=== PATIENT | male | born 1935 | race Caucasian/White ===

== ENCOUNTER 2017-01-12 08:37 | Inpatient (IN) | payer MEDICARE, BC ==
[~2017-01-12] VITALS: Ht 177.8 cm; Wt 96.7 kg
[2017-01-12] VITALS (16 sets, daily range): BP systolic 83–129; BP diastolic 50–92
[~2017-01-12 08:37] MED LIST: AMIO200T PO; AMLO5TAB4 PO; ATOR40TA59 PO; DIGO125T16 PO; DILT180C2 PO; ESOM40CA PO; EZET1TAB30 PO; FURO40TA4 PO; IPRA4AER IH; LISI10TA2 PO; LISI1TAB3 PO; METO100T2 PO; METO100T5 PO; OLME20TA19 PO; OMEG1CAP38 PO; OMEG500C PO; OMEP40CA5 PO; PIOG15TA42 PO; PIOG15TA69 PO; SODI30SP NS; SPIR1TAB PO; TAMS0.4C97 PO; TIOT18CA IH
[2017-01-12] MEDS ORDERED: LORazepam 2 MG/ML VIAL IV PRN ×2 (09:30)
[2017-01-12] MEDS ORDERED: ONDANSETRON PF 4 MG/2 ML VIAL. IV PRN (09:30)
[2017-01-12] MEDS ORDERED: LORazepam 1 MG TABLET PO PRN ×2 (09:30)
[2017-01-12 09:36] LABS: BASO % 0 % (0-3); EOS % 0 % (0-3); HEMATOCRIT 49.9 % (39.0-53.0); HEMOGLOBIN 16.7 g/dL (13.0-17.5); LYMPH # 0.8 x10^3/uL (1.0-4.8); LYMPH % 9 % (24-48); MEAN CORPUSCULAR HEMOGLOBIN 33 pg (25-35); MEAN CORPUSCULAR HGB CONC 34 g/dL (31-37); MEAN CORPUSCULAR VOLUME 100 fL (79-100); MONO # 1.2 x10^3/uL (0.0-1.1); MONO % 14 % (0-9); NEUT # 6.6 x10^3uL (1.8-7.7); NEUT % 76 % (31-73); PLATELET COUNT 191 x10^3/uL (140-400); RED BLOOD COUNT 5.01 x10^6/uL (4.30-5.70); RED CELL DISTRIBUTION WIDTH 14.1 % (11.5-14.5); WHITE BLOOD COUNT 8.6 x10^3/uL (4.0-11.0)
[2017-01-12] MEDS ORDERED: IPRATRPIUM/ALBUTEROL 0.5/2.5MG 3 ML NEBU. ONE (09:43)
[2017-01-12] MEDS: IPRATRPIUM/ALBUTEROL 0.5/2.5MG 3 ML NEBU. NEB SCH ×3 (09:50→20:54)
[2017-01-12 09:55] LABS: ALBUMIN 3.1 g/dL (3.4-5.0); ALBUMIN/GLOBULIN RATIO 0.9 (1.0-1.7); CALCIUM 9.1 mg/dL (8.5-10.1); CREATININE 1.3 mg/dL (0.7-1.3); POTASSIUM 3.8 mmol/L (3.5-5.1); TOTAL PROTEIN 6.5 g/dL (6.4-8.2)
[2017-01-12 10:07] LABS: DIRECT BILIRUBIN 0.9 mg/dL (0.0-0.2)
[2017-01-12 10:10] LABS: BGAS PH 7.41 (7.35-7.46)
[2017-01-12] MEDS: NICOTINE 21MG PATCH. TD SCH (10:26)
--- NOTE | 2017-01-12 10:26 | RAD ---
Exam performed: 2 views chest. History: Shortness of breath and cough. Date of service: 01/12/17. Comparison: 09/03/14. PA and lateral views chest findings: Moderate stable cardiomegaly. Central vascular congestion is noted. Coarse interstitial markings are seen in both lungs some of which is likely a chronic basis. There is trace bilateral pleural effusions. Emphysematous lungs. Impression: Cardiomegaly with central vascular congestion and probable low-grade interstitial edema.
[2017-01-12] MEDS ORDERED: dilTIAZem 25 MG/5 ML VIAL IVP ONE (10:30)
--- NOTE | 2017-01-12 11:06 | PDOC2 ---
JUANA BRAVO [employer] 01/12/17 1106: CONSULT Date of Admission DATE: 01/12/17 TIME: 10:57 Reason for Consult: atrial fibrillation with RVR History of Present Illness Mr Masters is an 81 year old male with history of HTN, HLD, PE, CVA, CHF, who presents with complaints of dyspnea increasing over the last couple weeks. He says he has been unable to sleep due to dyspnea and this is what prompted him to go to his PCP office this am. He was noted to have atrial fibrillation with RVR so sent to hospital for direct admission. He is a poor historian and unable to give clear cardiac history. He reports that after the of his son and then he " stopped caring, stopped going to doctor and started drinking and smoking. He reports chest discomfort mid sternal with the dyspnea this am. He suggests that he may have been having chest pain off and on but is unable or unwilling to give details. He reports increased swelling over the last couple weeks as well. Most of his history is obtained from the chart. Past Medical History Significant for hypertension, hyperlipidemia, stroke, diabetes mellitus, BPH, reflux disease, DVT filter in place, congestive heart failure, COPD, and legally blind. Family History Family history is significant for hypertension and strokes. Social History smoking off and on for many years ago up to 1ppd. He has alcohol use of about a 6 pack per day. He says after the of his son and he stopped caring , started drinking and smoking and stopped following up. Current Medications Current Medications Albuterol/ Ipratropium (Duoneb) 3 ml RTQID NEB ; Start 01/12/17 at 12:00 Lorazepam (Ativan) 4 mg PRN Q1HR PRN PO For CIWA 8-14; Start 01/12/17 at 09:30 Lorazepam (Ativan) 8 mg PRN Q1HR PRN PO For CIWA 15 or greater; Start 01/12/17 at 09:30 Lorazepam (Ativan) 2 mg PRN Q1HR PRN IV For CIWA 8-14; Start 01/12/17 at 09:30 Lorazepam (Ativan) 4 mg PRN Q1HR PRN IV For CIWA 15 or greater; Start 01/12/17 at 09:30 Nicotine (Nicoderm Cq 21mg) 1 patch DAILY TD Last administered on 01/12/17t 10: 26; Start 01/12/17 at 09:45 Ondansetron HCl (Zofran) 4 mg PRN Q6HRS PRN IV NAUSEA/VOMITING; Start 01/12/17 at 09:30 Albuterol/ Ipratropium (Duoneb) 3 ml STK-MED ONCE .ROUTE ; Start 01/12/17 at 09: 43; Stop 01/12/17 at 09:44; Status DC Diltiazem HCl (Cardizem) 10 mg 1X ONCE IVP ; Start 01/12/17 at 10:30; Stop at 10:30; Status DC Diltiazem HCl 100 mg/Dextrose 100 ml @ 5 mls/hr CONT PRN IV SEE I/O RECORD Last administered on 01/12/17 10:28; Start 01/12/17 at 10:15 Active Scripts Active Toprol Xl (Metoprolol Succinate) 100 Mg Tab.er.24h 100 Mg PO BID Lanoxin (Digoxin) 125 Mcg Tablet 125 Mcg PO DAILY Reported Saline Nasal Stanton (Sodium Chloride) 30 Ml Stanton 30 Ml NS PRN Q1MIN PRN LAST DOSE; TODAY NEXT DOSE; TODAY WHEN NEEDED Omeprazole 40 Mg Capsule.dr 40 Mg PO DAILY LAST DOSE; TODAY BEFORE BREAKFAST NEXT DOSE; TOMORROW BEFORE BREAKFAST Furosemide 40 Mg Tablet 40 Mg PO DAILY LAST DOSE; TODAY AM NEXT DOSE; TOMORROW AM Pioglitazone Hcl 15 Mg Tablet 15 Mg PO DAILY LAST DOSE; TODAY WITH BREAKFAST NEXT DOSE; TOMORROW WITH BREAKFAST Toprol Xl (Metoprolol Succinate) 100 Mg Tab.er.24h 100 Mg PO BID LAST DOSE; TODAY AM NEXT DOSE; TODAY PM Atorvastatin Calcium 40 Mg Tablet 40 Mg PO QHS LAST DOSE; LAST NIGHT AT BEDTIME NEXT DOSE; TONIGHT AT BEDTIME Combivent Respimat Inhal Stanton (Ipratropium/Albuterol Sulfate) 4 Gm Aer.w.adap 4 Gm IH PRN QID PRN LAST DOSE; NEXT DOSE; TODAY IF NEEDED Benicar (Olmesartan Medoxomil) 20 Mg Tablet 20 Mg PO DAILY LAST DOSE; TODAY AM NEXT DOSE; TOMORROW AM Flomax (Tamsulosin Hcl) 0.4 Mg Cap.er.24h 0.4 Mg PO DAILY LAST DOSE; TODAY AM NEXT DOSE; TOMORROW AM Allergies: Coded Allergies: Penicillins (Verified Allergy, Intermediate, 09/04/14) iodine (Verified Allergy, Intermediate, 09/04/14) shellfish derived (Verified Allergy, Intermediate, 09/04/14) shrimp Review of System as per HPI General: Alert, Oriented X3, mild distress HEENT: Other (+HJR) Lungs: Other (decreased with bibasilar crackles) Heart: Other (irregular rate and rhythm without gallops) Abdomen: Normal bowel sounds, Soft Extremities: No cyanosis, Other (3+ bilateral lower extremity edema) Neuro: Normal speech Psych/Mental Status: Mental status NL, Other (depressed) VITALS Vital Signs Date Time Temp Pulse Resp B/P (MAP) Pulse Ox O2 Delivery O2 Flow Rate FiO2 01/12/17 10:50 97.5 97 24 118/91 (100) 94 Nasal Cannula 2.0 Labs Laboratory Tests Test 01/12/17 09:27 01/12/17 09:55 White Blood Count 8.6 x10^3/uL (4.0-11.0) Red Blood Count 5.01 x10^6/uL (4.30-5.70) Hemoglobin 16.7 g/dL (13.0-17.5) Hematocrit 49.9 % (39.0-53.0) Mean Corpuscular Volume 100 fL (79-100) Mean Corpuscular Hemoglobin 33 pg (25-35) Mean Corpuscular Hemoglobin Concent 34 g/dL (31-37) Red Cell Distribution Width 14.1 % (11.5-14.5) Platelet Count 191 x10^3/uL (140-400) Neutrophils (%) (Auto) 76 % (31-73) Lymphocytes (%) (Auto) 9 % (24-48) Monocytes (%) (Auto) 14 % (0-9) Eosinophils (%) (Auto) 0 % (0-3) Basophils (%) (Auto) 0 % (0-3) Neutrophils # (Auto) 6.6 x10^3uL (1.8-7.7) Lymphocytes # (Auto) 0.8 x10^3/uL (1.0-4.8) Monocytes # (Auto) 1.2 x10^3/uL (0.0-1.1) Eosinophils # (Auto) 0.0 x10^3/uL (0.0-0.7) Basophils # (Auto) 0.0 x10^3/uL (0.0-0.2) D-Dimer (Ami) 0.76 mg/L (0.00-0.50) Sodium Level 133 mmol/L (136-145) Potassium Level 3.8 mmol/L (3.5-5.1) Chloride Level 98 mmol/L (98-107) Carbon Dioxide Level 30 mmol/L (21-32) Anion Gap 5 (6-14) Blood Urea Nitrogen 19 mg/dL (8-26) Creatinine 1.3 mg/dL (0.7-1.3) Estimated GFR (Cockcroft-Gault) 53.0 BUN/Creatinine Ratio 15 (6-20) Glucose Level 129 mg/dL (70-99) Calcium Level 9.1 mg/dL (8.5-10.1) Total Bilirubin 2.0 mg/dL (0.2-1.0) Direct Bilirubin 0.9 mg/dL (0.0-0.2) Aspartate Amino Transf (AST/SGOT) 38 U/L (15-37) Alanine Aminotransferase (ALT/SGPT) 18 U/L (16-63) Alkaline Phosphatase 131 U/L (46-116) Creatine Kinase 82 U/L (39-308) Troponin I Quantitative 0.055 ng/mL (0-0.055) JJ-[id number]-Type Natriuretic Peptide 92585 pg/mL (0-449) Total Protein 6.5 g/dL (6.4-8.2) Albumin 3.1 g/dL (3.4-5.0) Albumin/Globulin Ratio 0.9 (1.0-1.7) Blood Gas pH 7.41 (7.35-7.46) Blood Gas PCO2 36 mmHg (35-46) Blood Gas PO2 98 mmHg (71-100) Blood Gas HCO3 23 mmol/L (21-28) Arterial Bld O2 Saturation (Calc) 98 % (92-99) FiO2 28 % Images atrial fibrillation with RVR, RBBB Assessment/Plan atrial fibrillation with RVR acute on chronic chf, likely atrial fibrillation - check echo for LV function Chest pain, no acute ischemic changes on EKG. 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 Check echo. IV lasix. Obtain list of home medications and resume as appropriate. . Problems: JOSE DE JESUS OSPINA MD 01/13/17 0945: CONSULT Allergies: Coded Allergies: Penicillins (Verified Allergy, Intermediate, 09/04/14) iodine (Verified Allergy, Intermediate, 09/04/14) shellfish derived (Verified Allergy, Intermediate, 09/04/14) shrimp Assessment/Plan Patient seen and examined 01/12/17. Agree with HONEY PRODUCER's assessment and plan. Atrial fibrillation rate better controlled with intravenous Cardizem infusion and digoxin. 2-D echo showed LVEF 25-30%, diminished compared to echocardiogram from 2015. Atrial fibrillation most probably permanent. He was previously on amiodarone that was taken off either secondary to pulmonary nature of atrial fibrillation or due to his chronic alcohol abuse. Continue diuresis for acute on chronic systolic heart failure. Cardiac catheterization 10 years ago apparently did not show any significant coronary artery disease. Plan for outpatient Lexiscan nuclear stress test to rule out ischemia as a cause of his diminished left ventricle systolic function. Thank you for your consultation. Problems: JUANA BRAVO APRN Jan 12, 2017 11:06 JOSE DE JESUS OSPINA MD Jan 13, 2017 09:45
[2017-01-12] MEDS ORDERED: APIX5TAB3 PO (11:12)
[2017-01-12] MEDS: HYDROcodone/CHLORPHEN POLIS 5 ML SUS.ER.12H PO PRN (12:05)
[2017-01-12] MEDS ORDERED: DIGOXIN IV 500 MCG/2 ML AMPUL. IV ONE (12:30)
[2017-01-12] MEDS: FUROSEMIDE 40 MG/4 ML VIAL IVP SCH ×2 (12:32→17:00)
[2017-01-12] MEDS: POTASSIUM CHLORIDE 20 MEQ TABLET.ER. PO SCH ×2 (12:33→19:57)
[2017-01-12] MEDS ORDERED: NON FORMULARY ITEM (Ipratropium/Albuterol Sulfate (Combivent Respimat Inhal) 4 GM) IH PRN (13:30)
--- NOTE | 2017-01-12 14:30 | CARD ---
APPROVED REPORT EXAM: Two-dimensional and M-mode echocardiogram with Doppler and color Doppler. Other Information Quality : Average Rhythm : Atrial Fibrillation RVR INDICATION Atrial Fibrillation 2D DIMENSIONS RVDd2.8 (2.9-3.5cm)Left Atrium(2D)4.8 (1.6-4.0cm) IVSd1.2 (0.7-1.1cm)Aortic Root(2D)2.7 (2.0-3.7cm) LVDd6.2 (3.9-5.9cm)LVOT Diameter2.2 (1.8-2.4cm) PWd1.2 (0.7-1.1cm)LVDs5.3 (2.5-4.0cm) FS (%) 14.4 %SV59.2 ml LVEF(%)30.0 (>50%) Aortic Valve AoV Peak Bryon.243.8cm/sAoV VTI36.9cm AO Peak GR.23.8mmHgLVOT Peak Bryon.87.1cm/s LVOT VTI 12.99cmAO Mean GR.14mmHg ARY (VMAX)1.01yr9RKA (VTI)1.31cm2 Mitral Valve MV RAO67xsSJE (PHT)3.57cm2 Tricuspid Valve TR P. [id number]/sRAP [id number] TR Peak Gr.[id number] LEFT VENTRICLE There is borderline concentric left ventricular hypertrophy. Left ventricle systolic function is mode rate to severely impaired. The Ejection Fraction is 25-30%. Septal motion consistent with conduction abnormality. Unable to assess diastolic function. RIGHT VENTRICLE The right ventricle appears dilated inl size. Cannot assess right ventricular systolic function. ATRIA The left atrium is moderately dilated. The right atrium appears moderately dilated. The interatrial s eptum is intact with no evidence for an atrial septal defect or patent foramen ovale as noted on 2-D or Doppler imaging. AORTIC VALVE The aortic valve is moderately calcified. Doppler and Color Flow revealed no significant aortic regur gitation. Calculated aortic valve area is 1.3 cm2 with maximum pressure gradient of 24 mmHg and mean pressure gradient of 14 mmHg. Doppler and color-flow analysis revealed mild aortic stenosis. MITRAL VALVE Mitral annular calcification is mild. There is no mitral valve stenosis. Doppler and Color Flow revea led moderate mitral regurgitation. TRICUSPID VALVE The tricuspid valve is normal in structure and function. Doppler and Color Flow revealed mild to mode rate tricuspid regurgitation. The PA pressure was estimated at 36 mmHg. There is no tricuspid valve s tenosis. PULMONIC VALVE The pulmonic valve is not well visualized. Doppler and Color Flow revealed no pulmonic valvular regur gitation. There is no pulmonic valvular stenosis. GREAT VESSELS The aortic root is normal in size. Pulmonary veins not recorded. The IVC is normal in size and collap ses >50% with inspiration. PERICARDIAL EFFUSION There is no evidence of significant pericardial effusion. Critical Notification Date: 01/12/2017 Time: 13:44 Other Discipline : Nancy Arredondo APRN Critical Value: Yes <Conclusion> Left ventricle systolic function is moderate to severely impaired. The Ejection Fraction is 25-30%. Septal motion consistent with conduction abnormality. The left atrium is moderately dilated. Mild aortic stenosis. Moderate mitral regurgitation. Mild to moderate tricuspid regurgitation. The PA pressure was estimated at 36 mmHg. There is no evidence of significant pericardial effusion.
[2017-01-12] MEDS ORDERED: fentaNYL PF 100 MCG/2 ML VIAL IV PRN ×2 (15:15)
[2017-01-12] MEDS ORDERED: chlordiazePOXIDE HCL 25 MG CAPSULE PO PRN (15:15)
[2017-01-12 15:49] LABS: BARBITURATES NEG (NEG); BENZODIAZEPINES NEG (NEG); CANNABINOIDS NEG (NEG); COCAINE NEG (NEG); METHADONE NEG (NEG); OPIATES POS (NEG); PHENCYCLIDINE NEG (NEG)
[2017-01-12 15:55] LABS: AMPHETAMINE/METHAMPHETAMINE NEG (NEG)
[2017-01-12 16:23] LABS: BACTERIA,URINE FEW /HPF (0-FEW); BILIRUBIN,URINE NEG (NEG); CLARITY,URINE CLEAR; COLOR,URINE STRAW; GLUCOSE,URINE NEG (NEG); NITRITE,URINE NEG (NEG); SQUAMOUS EPITHELIAL CELL,UR OCC /LPF; UROBILINOGEN,URINE 0.2 mg/dL (0.2 mg/dL)
[2017-01-12] MEDS: chlordiazePOXIDE HCL 25 MG CAPSULE PO PRN (17:01)
[2017-01-12] MEDS: APIXABAN 5 MG TABLET. PO SCH (19:57)
[2017-01-12] MEDS: ATORVASTATIN CALCIUM 20 MG TABLET PO SCH (19:57)
[2017-01-12] MEDS ORDERED: METOPROLOL SUCCINATE 100 MG PO SCH ×2 (21:00)
[2017-01-13] VITALS (22 sets, daily range): BP systolic 75–115; BP diastolic 50–92
[2017-01-13] MEDS: HYDROcodone/CHLORPHEN POLIS 5 ML SUS.ER.12H PO PRN (01:22)
[2017-01-13] MEDS: chlordiazePOXIDE HCL 25 MG CAPSULE PO PRN ×2 (02:14→08:16)
[2017-01-13] MEDS: IPRATRPIUM/ALBUTEROL 0.5/2.5MG 3 ML NEBU. NEB PRN (02:49)
[2017-01-13] MEDS: IPRATRPIUM/ALBUTEROL 0.5/2.5MG 3 ML NEBU. NEB SCH ×4 (05:15→21:46)
[2017-01-13 06:36] LABS: BASO % 0 % (0-3); CALCIUM 8.9 mg/dL (8.5-10.1); CREATININE 1.2 mg/dL (0.7-1.3); EOS % 0 % (0-3); GFR 58.1; HEMATOCRIT 46.3 % (39.0-53.0); HEMOGLOBIN 15.4 g/dL (13.0-17.5); LYMPH % 7 % (24-48); MEAN CORPUSCULAR HEMOGLOBIN 33 pg (25-35); MEAN CORPUSCULAR HGB CONC 33 g/dL (31-37); MEAN CORPUSCULAR VOLUME 98 fL (79-100); MONO # 2.1 x10^3/uL (0.0-1.1); MONO % 14 % (0-9); NEUT % 80 % (31-73); PLATELET COUNT 181 x10^3/uL (140-400); POTASSIUM 3.7 mmol/L (3.5-5.1); RED BLOOD COUNT 4.71 x10^6/uL (4.30-5.70); RED CELL DISTRIBUTION WIDTH 13.9 % (11.5-14.5); WHITE BLOOD COUNT 15.1 x10^3/uL (4.0-11.0)
[2017-01-13 07:53] LABS: % BANDS 2 % (0-9); % LYMPHS 6 % (24-48); % MONOS 11 % (0-10); % SEGS 81 % (35-66)
[2017-01-13 07:54] LABS: PLT ESTIMATE ADEQUATE (ADEQUATE)
[2017-01-13] MEDS: NICOTINE 21MG PATCH. TD SCH (08:16)
[2017-01-13] MEDS: FUROSEMIDE 40 MG/4 ML VIAL IVP SCH ×2 (08:16→13:18)
[2017-01-13] MEDS: POTASSIUM CHLORIDE 20 MEQ TABLET.ER. PO SCH ×2 (08:17→19:47)
[2017-01-13] MEDS: TAMSULOSIN 0.4 MG CAP.ER.24H. PO SCH (08:17)
[2017-01-13] MEDS: PANTOPRAZOLE 40 MG TABLET. PO SCH (08:18)
[2017-01-13] MEDS: APIXABAN 5 MG TABLET. PO SCH ×2 (08:18→19:46)
[2017-01-13] MEDS: CITALOPRAM 10 MG TABLET. PO SCH (09:00)
[2017-01-13] MEDS: PIOGLITAZONE 15 MG TABLET. PO SCH (09:00)
[2017-01-13] MEDS ORDERED: LOSARTAN 50 MG TABLET. PO SCH (09:00)
[2017-01-13] MEDS ORDERED: FUROSEMIDE 40 MG/4 ML VIAL IVP SCH (09:00)
[2017-01-13] MEDS: DIGOXIN 125 MCG TABLET PO SCH (09:00)
--- NOTE | 2017-01-13 09:38 | PDOC ---
JUANA BRAVO [employer] FOR[employer] 01/13/17 0937: PROGRESS NOTES Assessment atrial fibrillation with RVR - remains on cardizem with uncontrolled rate. Anticoagulated with eliquis. Last documented sinus rhythm by EKG 2013. Continue rate control. Add Digoxin. acute on chronic systolic chf, likely exacerbated by atrial fibrillation - EF 25 -30%. continue diuresis. Last MPI 2014 with normal perfusion and EF. ? life vest and outpatient ischemic workup when euvolemic. hypotension - decrease losartan with hold parameters to allow for rate control and diuresis Chest pain, no acute ischemic changes on EKG. Talat remained indeterminate range. hyperlipidemia - lipid panel pending. on statin. 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 Problems: Subjective just back from [place], sedated post fentanyl, unable to have meaningful discussion re: POC. denies chest pain, reports breathing little better. complains of lower abdominal pain. Objective tele - atrial fibrillation with RVR Vital Signs Date Time Temp Pulse Resp B/P (MAP) Pulse Ox O2 Delivery O2 Flow Rate FiO2 01/13/17 08:56 Room Air 01/13/17 08:30 2.0 01/13/17 06:27 101 34 86/60 (69) 95 01/12/17 19:13 97.6 Abdomen: Normal bowel sounds, Soft, Other (diffuse low abdominal discomfort) Heart: Other (irregular rate and rhythm) Extremities: No cyanosis, Other (++ edema without significant change) Lungs: Other (bibasilar crackles) Neuro: Other (slurred speech) Psych/Mental Status: Other (sedated, depressed mood) Review of Relevant I have reviewed the following items hardy (where applicable) has been applied. Labs Laboratory Tests Test 01/12/17 09:27 01/12/17 09:55 01/12/17 12:55 01/12/17 14:50 White Blood Count 8.6 x10^3/uL (4.0-11.0) Red Blood Count 5.01 x10^6/uL (4.30-5.70) Hemoglobin 16.7 g/dL (13.0-17.5) Hematocrit 49.9 % (39.0-53.0) Mean Corpuscular Volume 100 fL (79-100) Mean Corpuscular Hemoglobin 33 pg (25-35) Mean Corpuscular Hemoglobin Concent 34 g/dL (31-37) Red Cell Distribution Width 14.1 % (11.5-14.5) Platelet Count 191 x10^3/uL (140-400) Neutrophils (%) (Auto) 76 % (31-73) Lymphocytes (%) (Auto) 9 % (24-48) Monocytes (%) (Auto) 14 % (0-9) Eosinophils (%) (Auto) 0 % (0-3) Basophils (%) (Auto) 0 % (0-3) Neutrophils # (Auto) 6.6 x10^3uL (1.8-7.7) Lymphocytes # (Auto) 0.8 x10^3/uL (1.0-4.8) Monocytes # (Auto) 1.2 x10^3/uL (0.0-1.1) Eosinophils # (Auto) 0.0 x10^3/uL (0.0-0.7) Basophils # (Auto) 0.0 x10^3/uL (0.0-0.2) D-Dimer (Ami) 0.76 mg/L (0.00-0.50) Sodium Level 133 mmol/L (136-145) Potassium Level 3.8 mmol/L (3.5-5.1) Chloride Level 98 mmol/L (98-107) Carbon Dioxide Level 30 mmol/L (21-32) Anion Gap 5 (6-14) Blood Urea Nitrogen 19 mg/dL (8-26) Creatinine 1.3 mg/dL (0.7-1.3) Estimated GFR (Cockcroft-Gault) 53.0 BUN/Creatinine Ratio 15 (6-20) Glucose Level 129 mg/dL (70-99) Calcium Level 9.1 mg/dL (8.5-10.1) Total Bilirubin 2.0 mg/dL (0.2-1.0) Direct Bilirubin 0.9 mg/dL (0.0-0.2) Aspartate Amino Transf (AST/SGOT) 38 U/L (15-37) Alanine Aminotransferase (ALT/SGPT) 18 U/L (16-63) Alkaline Phosphatase 131 U/L (46-116) Creatine Kinase 82 U/L (39-308) Troponin I Quantitative 0.055 ng/mL (0-0.055) 0.054 ng/mL (0-0.055) [id number]-Type Natriuretic Peptide 73992 pg/mL (0-449) Total Protein 6.5 g/dL (6.4-8.2) Albumin 3.1 g/dL (3.4-5.0) Albumin/Globulin Ratio 0.9 (1.0-1.7) Thyroid Stimulating Hormone (TSH) 1.090 uIU/mL (0.358-3.740) Blood Gas pH 7.41 (7.35-7.46) Blood Gas PCO2 36 mmHg (35-46) Blood Gas PO2 98 mmHg (71-100) Blood Gas HCO3 23 mmol/L (21-28) Arterial Bld O2 Saturation (Calc) 98 % (92-99) FiO2 28 % Nasal Screen MRSA (PCR) Negative (Negative) Test 01/12/17 15:32 01/12/17 20:55 01/13/17 05:35 Urine Collection Type Unknown Urine Color Straw Urine Clarity Clear Urine pH 5.5 Urine Specific Howard 1.010 Urine Protein Neg (NEG-TRACE) Urine Glucose (UA) Neg mg/dL (NEG) Urine Ketones (Stick) Neg mg/dL (NEG) Urine Blood Mod (NEG) Urine Nitrite Neg (NEG) Urine Bilirubin Neg (NEG) Urine Urobilinogen Dipstick 0.2 mg/dL (0.2 mg/dL) Urine Leukocyte Esterase Trace (NEG) Urine RBC 1-2 /HPF (0-2) Urine WBC 1-4 /HPF (0-4) Urine Squamous Epithelial Cells Occ /LPF Urine Bacteria Few /HPF (0-FEW) Urine Opiates Screen Pos (NEG) Urine Methadone Screen Neg (NEG) Urine Barbiturates Neg (NEG) Urine Phencyclidine Screen Neg (NEG) Urine Amphetamine/Methamphetamine Neg (NEG) Urine Benzodiazepines Screen Neg (NEG) Urine Cocaine Screen Neg (NEG) Urine Cannabinoids Screen Neg (NEG) Urine Ethyl Alcohol Neg (NEG) Troponin I Quantitative 0.041 ng/mL (0-0.055) White Blood Count 15.1 x10^3/uL (4.0-11.0) Red Blood Count 4.71 x10^6/uL (4.30-5.70) Hemoglobin 15.4 g/dL (13.0-17.5) Hematocrit 46.3 % (39.0-53.0) Mean Corpuscular Volume 98 fL (79-100) Mean Corpuscular Hemoglobin 33 pg (25-35) Mean Corpuscular Hemoglobin Concent 33 g/dL (31-37) Red Cell Distribution Width 13.9 % (11.5-14.5) Platelet Count 181 x10^3/uL (140-400) Neutrophils (%) (Auto) 80 % (31-73) Lymphocytes (%) (Auto) 7 % (24-48) Monocytes (%) (Auto) 14 % (0-9) Eosinophils (%) (Auto) 0 % (0-3) Basophils (%) (Auto) 0 % (0-3) Neutrophils # (Auto) 12.0 x10^3uL (1.8-7.7) Lymphocytes # (Auto) 1.0 x10^3/uL (1.0-4.8) Monocytes # (Auto) 2.1 x10^3/uL (0.0-1.1) Eosinophils # (Auto) 0.0 x10^3/uL (0.0-0.7) Basophils # (Auto) 0.0 x10^3/uL (0.0-0.2) Segmented Neutrophils % 81 % (35-66) Band Neutrophils % 2 % (0-9) Lymphocytes % 6 % (24-48) Monocytes % 11 % (0-10) Platelet Estimate Adequate (ADEQUATE) Large Platelets Occ Giant Platelets Occ Sodium Level 136 mmol/L (136-145) Potassium Level 3.7 mmol/L (3.5-5.1) Chloride Level 100 mmol/L (98-107) Carbon Dioxide Level 32 mmol/L (21-32) Anion Gap 4 (6-14) Blood Urea Nitrogen 17 mg/dL (8-26) Creatinine 1.2 mg/dL (0.7-1.3) Estimated GFR (Cockcroft-Gault) 58.1 Glucose Level 109 mg/dL (70-99) Calcium Level 8.9 mg/dL (8.5-10.1) Medications Current Medications Albuterol/ Ipratropium (Duoneb) 3 ml RTQID NEB Last administered on 01/13/17t 05:15; Start 01/12/17 at 12:00 Lorazepam (Ativan) 4 mg PRN Q1HR PRN PO For CIWA 8-14; Start 01/12/17 at 09:30 ; Stop 01/12/17 at 15:49; Status DC Lorazepam (Ativan) 8 mg PRN Q1HR PRN PO For CIWA 15 or greater; Start 01/12/17 at 09:30; Stop 01/12/17 at 15:49; Status DC Lorazepam (Ativan) 2 mg PRN Q1HR PRN IV For CIWA 8-14 Last administered on 01/12 12:06; Start 01/12/17 at 09:30; Stop 01/12/17 at 15:49; Status DC Lorazepam (Ativan) 4 mg PRN Q1HR PRN IV For CIWA 15 or greater; Start 01/12/17 at 09:30; Stop 01/12/17 at 15:49; Status DC Nicotine (Nicoderm Cq 21mg) 1 patch DAILY TD Last administered on 01/13/17 08: 16; Start 01/12/17 at 09:45 Ondansetron HCl (Zofran) 4 mg PRN Q6HRS PRN IV NAUSEA/VOMITING; Start 01/12/17 at 09:30 Albuterol/ Ipratropium (Duoneb) 3 ml STK-MED ONCE .ROUTE ; Start 01/12/17 at 09: 43; Stop 01/12/17 at 09:44; Status DC Diltiazem HCl (Cardizem) 10 mg 1X ONCE IVP ; Start 01/12/17 at 10:30; Stop at 10:30; Status DC Diltiazem HCl 100 mg/Dextrose 100 ml @ 5 mls/hr CONT PRN IV SEE I/O RECORD Last administered on 01/12/17 10:28; Start 01/12/17 at 10:15 Furosemide (Lasix) 40 mg BID92 IVP Last administered on 01/13/17 08:16; Start 01/12/17 at 11:15 Potassium Chloride (Klor-Con) 20 meq BID PO Last administered on 01/12/17 19: 57; Start 01/12/17 at 11:15; Stop 01/13/17 at 07:39; Status DC Chlorphenir/ Hydrocodone Polistirex (Tussionex) 5 ml PRN Q12HR PRN PO COUGH Last administered on 01/13/17 01:22; Start 01/12/17 at 12:00 Digoxin (Lanoxin) 500 mcg 1X ONCE IV Last administered on 01/12/17 12:32; Start 01/12/17 at 12:30; Stop 01/12/17 at 12:31; Status DC Apixaban (Eliquis) 5 mg BID PO Last administered on 01/13/17 08:18; Start at 21:00 Digoxin (Lanoxin) 125 mcg DAILY PO ; Start 01/13/17 at 09:00 Pioglitazone HCl (Actos) 15 mg DAILY PO ; Start 01/13/17 at 09:00 Tamsulosin HCl (Flomax) 0.4 mg DAILY PO Last administered on 01/13/17 08:17; Start 01/13/17 at 09:00 Atorvastatin Calcium (Lipitor) 40 mg QHS PO Last administered on 01/12/17 19: 57; Start 01/12/17 at 21:00 Non-Formulary Medication 4 gm PRN QID PRN IH SHORTNESS OF BREATH; Start at 13:30; Stop 01/12/17 at 16:08; Status DC Non-Formulary Medication 100 mg BID PO ; Start 01/12/17 at 21:00; Status UNV Non-Formulary Medication 100 mg BID PO ; Start 01/12/17 at 21:00; Status UNV Losartan Potassium (Cozaar) 100 mg DAILY PO ; Start 01/13/17 at 09:00 Pantoprazole Sodium (Protonix) 40 mg DAILYAC PO Last administered on 01/13/17 08:18; Start 01/13/17 at 07:30 Furosemide (Lasix) 40 mg DAILY IVP ; Start 01/13/17 at 09:00; Stop 01/13/17 at 09:00; Status DC Fentanyl Citrate (Fentanyl 2ml Vial) 50 mcg PRN Q1HR PRN IV PAIN; Start at 15:15 Fentanyl Citrate (Fentanyl 2ml Vial) 100 mcg PRN Q2HR PRN IV SEVERE PAIN Last administered on 01/13/17 08:56; Start 01/12/17 at 15:15 Chlordiazepoxide (Librium) 50 mg PRN Q1HR PRN PO For CIWA 8-14 Last administered on 01/13/17 08:16; Start 01/12/17 at 15:15 Chlordiazepoxide (Librium) 100 mg PRN Q1HR PRN PO For CIWA 15 or greater; Start 01/12/17 at 15:15 Albuterol/ Ipratropium (Duoneb) 3 ml PRN QID PRN NEB SOA Last administered on 02:49; Start 01/12/17 at 16:00 Olanzapine (ZyPREXA ZYDIS) 2.5 mg PRN Q2HR PRN PO ANXIETY / AGITATION; Start at 18:45 Citalopram Hydrobromide (CeleXA) 10 mg DAILY PO ; Start 01/13/17 at 09:00 Potassium Chloride (Klor-Con) 40 meq BID PO Last administered on 01/13/17 08: 17; Start 01/13/17 at 09:00 Active Scripts Active Toprol Xl (Metoprolol Succinate) 100 Mg Tab.er.24h 100 Mg PO BID Lanoxin (Digoxin) 125 Mcg Tablet 125 Mcg PO DAILY Reported Eliquis (Apixaban) 5 Mg Tablet 5 Mg PO BID Omeprazole 40 Mg Capsule.dr 40 Mg PO DAILY LAST DOSE; TODAY BEFORE BREAKFAST NEXT DOSE; TOMORROW BEFORE BREAKFAST Furosemide 40 Mg Tablet 40 Mg PO DAILY LAST DOSE; TODAY AM NEXT DOSE; TOMORROW AM Pioglitazone Hcl 15 Mg Tablet 15 Mg PO DAILY LAST DOSE; TODAY WITH BREAKFAST NEXT DOSE; TOMORROW WITH BREAKFAST Atorvastatin Calcium 40 Mg Tablet 40 Mg PO QHS LAST DOSE; LAST NIGHT AT BEDTIME NEXT DOSE; TONIGHT AT BEDTIME Combivent Respimat Inhal (Ipratropium/Albuterol Sulfate) 4 Gm Aer.w.adap 4 Gm IH PRN QID PRN LAST DOSE; NEXT DOSE; TODAY IF NEEDED Vitals/I & O Vital Sign - Last 24 Hours 01/12/17 01/12/17 01/12/17 01/12/17 09:48 10:50 11:46 11:50 Temp 97.5 97.9 Pulse 97 128 121 Resp 24 20 24 B/P (MAP) 118/91 (100) 83/50 (61) 103/68 (80) Pulse Ox 95 94 92 97 O2 Delivery Nasal Cannula Nasal Cannula Nasal Cannula Nasal Cannula O2 Flow Rate 2.0 2.0 2.0 2.0 8/29/17 8/29/17 8/29/17 8/29/17 12:30 12:32 13:30 13:52 Pulse 128 130 118 110 Resp 20 20 20 B/P (MAP) 104/82 (89) 104/85 (91) 84/75 (78) Pulse Ox 92 97 97 O2 Delivery Nasal Cannula Nasal Cannula Nasal Cannula O2 Flow Rate 2.0 2.0 2.0 01/12/17 01/12/17 01/12/17 01/12/17 14:30 15:30 15:38 16:21 Pulse 116 110 86 Resp 20 20 20 B/P (MAP) 118/74 (89) 109/62 (78) 118/74 (89) Pulse Ox 94 95 96 93 O2 Delivery Nasal Cannula Nasal Cannula Nasal Cannula Nasal Cannula O2 Flow Rate 2.0 2.0 2.0 2.0 01/12/17 01/12/17 01/12/17 01/12/17 17:30 19:13 20:13 20:30 Temp 97.6 Pulse 101 101 88 Resp 20 19 25 B/P (MAP) 129/69 (89) 92/68 (76) 119/92 (101) Pulse Ox 94 94 96 O2 Delivery Nasal Cannula Nasal Cannula Nasal Cannula Nasal Cannula O2 Flow Rate 2.0 2.0 2.0 2.0 01/12/17 01/12/17 01/12/17 01/12/17 20:54 21:13 22:18 23:13 Pulse 96 82 99 Resp 24 22 22 B/P (MAP) 107/72 (84) 108/85 (93) 90/55 (67) Pulse Ox 96 95 93 94 O2 Delivery Nasal Cannula Nasal Cannula Nasal Cannula Nasal Cannula O2 Flow Rate 1.5 2.0 2.0 3.0 01/13/17 01/13/17 01/13/17 01/13/17 00:13 01:13 02:49 03:11 Pulse 92 128 103 Resp 24 26 33 B/P (MAP) 85/66 (72) 97/84 (88) 88/71 (77) Pulse Ox 95 95 93 92 O2 Delivery Nasal Cannula Nasal Cannula Nasal Cannula Nasal Cannula O2 Flow Rate 3.0 3.0 3.0 3.0 01/13/17 01/13/17 01/13/17 01/13/17 04:13 05:13 05:17 06:27 Pulse 94 75 101 Resp 21 16 34 B/P (MAP) 85/60 (68) 97/70 (79) 86/60 (69) Pulse Ox 93 100 96 95 O2 Delivery Nasal Cannula Nasal Cannula Nasal Cannula Nasal Cannula O2 Flow Rate 3.0 3.0 3.0 2.0 01/13/17 01/13/17 08:30 08:56 O2 Delivery Nasal Cannula Room Air O2 Flow Rate 2.0 BHARATH POZO MD 01/13/17 3873: PROGRESS NOTES Review of Relevant Patient seen and examined. Agree with above nurse practitioner note. 81-year-old man who overnight continues to be impaired from a cognitive perspective. He has severe LV dysfunction. We will discontinue his Cardizem therapy. Continue digoxin and likely initiate amiodarone therapy as he has no other low risk options from a standpoint of rate control. Start Toprol-XL as well Palliative care discussion to be held with family when available. JUANA BRAVO APRN Jan 13, 2017 09:37 BHARATH POZO MD Jan 13, 2017 17:53
[2017-01-13] MEDS ORDERED: DIGOXIN IV 500 MCG/2 ML AMPUL. IV ONE (10:45)
--- NOTE | 2017-01-13 11:54 | RAD ---
CT scan of the chest to include a CT scan of the abdomen and pelvis with oral contrast only 01/13/2017 Clinical history: Shortness of breath and cough with abdominal pain and pelvic fullness. Technique: After the oral and intravenous administration of contrast only unenhanced, contiguous, 5 mm axial sections were obtained through the chest with 3 mm contiguous, axial sections were obtained through the abdomen and pelvis. One or more of the following individualized dose reduction techniques were utilized for this study: 1. Automated exposure control. 2. Adjustment of the mA and/or kV according to patient size. 3. Use of iterative reconstruction technique. Findings: Comparison study is dated 06/14/2007. Moderate atherosclerotic calcification of the thoracic aorta and its branches is noted. The thoracic aorta is tortuous but tapers normally. Extensive coronary calcifications are seen. The heart is mild to moderately enlarged. Slightly prominent likely reactive mediastinal lymph nodes are again seen. There are small bilateral pleural effusions, right greater than left. Bilateral lower lobe atelectasis and/or infiltrate, right greater than left is seen. Bullous emphysematous changes are seen involving both lungs. No pneumothorax is seen. There is a large sliding hiatal hernia. The liver, spleen, pancreas, and adrenal glands are within normal limits. Several nonobstructing calculi are seen scattered throughout both kidneys. These measure 2 mm to 1.1 cm in size. The gallbladder is contracted. No free fluid or free air is seen within the abdomen. An IVC filter is noted in place. Moderate atherosclerotic calcification of the abdominal aorta and its branches is seen. Aneurysmal dilatation of the infrarenal abdominal aorta is seen. This measures 4.4 cm in greatest AP and transverse diameter. No extension to involve either common iliac artery is noted. Images through the pelvis demonstrate the urinary bladder distended with urine. The prostate gland is enlarged likely related to BPH. It measures 6.0 x 5.9 x 5.5 cm in transverse, craniocaudal and AP dimensions. No free fluid is seen. Mild S-shaped curvature of the thoracolumbar spine is noted. Degenerative changes are seen involving the thoracic and lumbar spine and both hips. Impression: 1. Mild to moderate cardiomegaly. There are small bilateral pleural effusions, right greater than left. Bilateral lower lobe atelectasis and/or infiltrate, right greater than left is seen. 2. 4.4 cm infrarenal abdominal aortic aneurysm. 3. The prostate gland is enlarged likely related to BPH. The urinary bladder is distended which may reflect bladder outlet obstruction.
[2017-01-13] MEDS ORDERED: METOPROLOL SUCC 24HR ER 25 MG TAB.ER.24H. PO ONE (13:20)
--- NOTE | 2017-01-13 18:41 | PDOC ---
Exam Jeison Demential Exam: Jeison Note: Please also refer to the separate dictated note~for this date of service dictated separately.~Patient seen individually. Discussed the patient with Nursing staff reviewed the chart.~Reviewed interim history and current functioning. Reviewed vital signs,~Labs/ Radiology~and current medications noted below. Continue current treatment with the changes noted in the dictated addendum note Assessment: Vital Signs: Vital Signs Date Time Temp Pulse Resp B/P (MAP) Pulse Ox O2 Delivery O2 Flow Rate FiO2 01/13/17 18:38 97.4 01/13/17 18:15 115 20 81/57 (65) 93 Nasal Cannula 2.0 I&O Intake and Output 01/14/17 07:00 Intake Total 700 ml Output Total 2325 ml Balance -1625 ml Intake Oral 700 ml Output Urine Total 2325 ml Labs: Laboratory Tests Test 01/12/17 20:55 01/13/17 05:35 Troponin I Quantitative 0.041 ng/mL (0-0.055) White Blood Count 15.1 x10^3/uL (4.0-11.0) #H Red Blood Count 4.71 x10^6/uL (4.30-5.70) Hemoglobin 15.4 g/dL (13.0-17.5) Hematocrit 46.3 % (39.0-53.0) Mean Corpuscular Volume 98 fL (79-100) Mean Corpuscular Hemoglobin 33 pg (25-35) Mean Corpuscular Hemoglobin Concent 33 g/dL (31-37) Red Cell Distribution Width 13.9 % (11.5-14.5) Platelet Count 181 x10^3/uL (140-400) Neutrophils (%) (Auto) 80 % (31-73) H Lymphocytes (%) (Auto) 7 % (24-48) L Monocytes (%) (Auto) 14 % (0-9) H Eosinophils (%) (Auto) 0 % (0-3) Basophils (%) (Auto) 0 % (0-3) Neutrophils # (Auto) 12.0 x10^3uL (1.8-7.7) H Lymphocytes # (Auto) 1.0 x10^3/uL (1.0-4.8) Monocytes # (Auto) 2.1 x10^3/uL (0.0-1.1) H Eosinophils # (Auto) 0.0 x10^3/uL (0.0-0.7) Basophils # (Auto) 0.0 x10^3/uL (0.0-0.2) Segmented Neutrophils % 81 % (35-66) H Band Neutrophils % 2 % (0-9) Lymphocytes % 6 % (24-48) L Monocytes % 11 % (0-10) H Platelet Estimate Adequate (ADEQUATE) Large Platelets Occ Giant Platelets Occ Sodium Level 136 mmol/L (136-145) Potassium Level 3.7 mmol/L (3.5-5.1) Chloride Level 100 mmol/L (98-107) Carbon Dioxide Level 32 mmol/L (21-32) Anion Gap 4 (6-14) L Blood Urea Nitrogen 17 mg/dL (8-26) Creatinine 1.2 mg/dL (0.7-1.3) Estimated GFR (Cockcroft-Gault) 58.1 Glucose Level 109 mg/dL (70-99) H Calcium Level 8.9 mg/dL (8.5-10.1) Current Medications: Meds: Current Medications Albuterol/ Ipratropium (Duoneb) 3 ml RTQID NEB Last administered on 01/13/17 15:44; Start 01/12/17 at 12:00 Lorazepam (Ativan) 4 mg PRN Q1HR PRN PO For CIWA 8-14; Start 01/12/17 at 09:30 ; Stop 01/12/17 at 15:49; Status DC Lorazepam (Ativan) 8 mg PRN Q1HR PRN PO For CIWA 15 or greater; Start 01/12/17 at 09:30; Stop 01/12/17 at 15:49; Status DC Lorazepam (Ativan) 2 mg PRN Q1HR PRN IV For CIWA 8-14 Last administered on 01/12 12:06; Start 01/12/17 at 09:30; Stop 01/12/17 at 15:49; Status DC Lorazepam (Ativan) 4 mg PRN Q1HR PRN IV For CIWA 15 or greater; Start 01/12/17 at 09:30; Stop 01/12/17 at 15:49; Status DC Nicotine (Nicoderm Cq 21mg) 1 patch DAILY TD Last administered on 01/13/17 08: 16; Start 01/12/17 at 09:45 Ondansetron HCl (Zofran) 4 mg PRN Q6HRS PRN IV NAUSEA/VOMITING; Start 01/12/17 at 09:30 Albuterol/ Ipratropium (Duoneb) 3 ml STK-MED ONCE .ROUTE ; Start 01/12/17 at 09: 43; Stop 01/12/17 at 09:44; Status DC Diltiazem HCl (Cardizem) 10 mg 1X ONCE IVP ; Start 01/12/17 at 10:30; Stop at 10:30; Status DC Diltiazem HCl 100 mg/Dextrose 100 ml @ 5 mls/hr CONT PRN IV SEE I/O RECORD Last administered on 01/13/17 11:58; Start 01/12/17 at 10:15 Furosemide (Lasix) 40 mg BID92 IVP Last administered on 01/13/17 13:18; Start 01/12/17 at 11:15; Stop 01/13/17 at 16:51; Status DC Potassium Chloride (Klor-Con) 20 meq BID PO Last administered on 01/12/17 19: 57; Start 01/12/17 at 11:15; Stop 01/13/17 at 07:39; Status DC Chlorphenir/ Hydrocodone Polistirex (Tussionex) 5 ml PRN Q12HR PRN PO COUGH Last administered on 01/13/17 01:22; Start 01/12/17 at 12:00 Digoxin (Lanoxin) 500 mcg 1X ONCE IV Last administered on 01/12/17 12:32; Start 01/12/17 at 12:30; Stop 01/12/17 at 12:31; Status DC Apixaban (Eliquis) 5 mg BID PO Last administered on 01/13/17 08:18; Start at 21:00 Digoxin (Lanoxin) 125 mcg DAILY PO ; Start 01/13/17 at 09:00 Pioglitazone HCl (Actos) 15 mg DAILY PO ; Start 01/13/17 at 09:00 Tamsulosin HCl (Flomax) 0.4 mg DAILY PO Last administered on 01/13/17 08:17; Start 01/13/17 at 09:00 Atorvastatin Calcium (Lipitor) 40 mg QHS PO Last administered on 01/12/17 19: 57; Start 01/12/17 at 21:00 Non-Formulary Medication 4 gm PRN QID PRN IH SHORTNESS OF BREATH; Start at 13:30; Stop 01/12/17 at 16:08; Status DC Non-Formulary Medication 100 mg BID PO ; Start 01/12/17 at 21:00; Status UNV Non-Formulary Medication 100 mg BID PO ; Start 01/12/17 at 21:00; Status UNV Losartan Potassium (Cozaar) 100 mg DAILY PO ; Start 01/13/17 at 09:00; Stop at 09:33; Status DC Pantoprazole Sodium (Protonix) 40 mg DAILYAC PO Last administered on 01/13/17 08:18; Start 01/13/17 at 07:30 Furosemide (Lasix) 40 mg DAILY IVP ; Start 01/13/17 at 09:00; Stop 01/13/17 at 09:00; Status DC Fentanyl Citrate (Fentanyl 2ml Vial) 50 mcg PRN Q1HR PRN IV PAIN; Start at 15:15 Fentanyl Citrate (Fentanyl 2ml Vial) 100 mcg PRN Q2HR PRN IV SEVERE PAIN Last administered on 01/13/17 08:56; Start 01/12/17 at 15:15 Chlordiazepoxide (Librium) 50 mg PRN Q1HR PRN PO For CIWA 8-14 Last administered on 01/13/17 08:16; Start 01/12/17 at 15:15 Chlordiazepoxide (Librium) 100 mg PRN Q1HR PRN PO For CIWA 15 or greater; Start 01/12/17 at 15:15 Albuterol/ Ipratropium (Duoneb) 3 ml PRN QID PRN NEB SOA Last administered on 02:49; Start 01/12/17 at 16:00 Olanzapine (ZyPREXA ZYDIS) 2.5 mg PRN Q2HR PRN PO ANXIETY / AGITATION; Start at 18:45 Citalopram Hydrobromide (CeleXA) 10 mg DAILY PO ; Start 01/13/17 at 09:00 Potassium Chloride (Klor-Con) 40 meq BID PO Last administered on 01/13/17 08: 17; Start 01/13/17 at 09:00 Losartan Potassium (Cozaar) 50 mg DAILY PO ; Start 01/14/17 at 09:00 Digoxin (Lanoxin) 250 mcg 1X ONCE IV Last administered on 01/13/17 10:26; Start 01/13/17 at 10:45; Stop 01/13/17 at 10:47; Status DC Metoprolol Succinate (Toprol Xl) 25 mg 1X ONCE PO Last administered on 15:25; Start 01/13/17 at 13:20; Stop 01/13/17 at 13:21; Status DC Metoprolol Succinate (Toprol Xl) 25 mg DAILY PO ; Start 01/14/17 at 09:00 Trimethoprim/ Sulfamethoxazole (Bactrim Ds) 1 tab BID PO ; Start 01/13/17 at 21: 00; Stop 01/20/17 at 20:59 Furosemide (Lasix) 40 mg DAILY08 IVP ; Start 01/14/17 at 08:00 Active Scripts Active Toprol Xl (Metoprolol Succinate) 100 Mg Tab.er.24h 100 Mg PO BID Lanoxin (Digoxin) 125 Mcg Tablet 125 Mcg PO DAILY Reported Eliquis (Apixaban) 5 Mg Tablet 5 Mg PO BID Omeprazole 40 Mg Capsule.dr 40 Mg PO DAILY LAST DOSE; TODAY BEFORE BREAKFAST NEXT DOSE; TOMORROW BEFORE BREAKFAST Furosemide 40 Mg Tablet 40 Mg PO DAILY LAST DOSE; TODAY AM NEXT DOSE; TOMORROW AM Pioglitazone Hcl 15 Mg Tablet 15 Mg PO DAILY LAST DOSE; TODAY WITH BREAKFAST NEXT DOSE; TOMORROW WITH BREAKFAST Atorvastatin Calcium 40 Mg Tablet 40 Mg PO QHS LAST DOSE; LAST NIGHT AT BEDTIME NEXT DOSE; TONIGHT AT BEDTIME Combivent Respimat Inhal (Ipratropium/Albuterol Sulfate) 4 Gm Aer.w.adap 4 Gm IH PRN QID PRN LAST DOSE; NEXT DOSE; TODAY IF NEEDED Diagnosis: Problems: (1) Impulse control disorder (2) Major depressive disorder, recurrent episode (3) Alcohol withdrawal syndrome RADHIKA WADDELL MD Jan 13, 2017 18:41
[2017-01-13] MEDS: SMZ/TMP 800/160MG TABLET. PO SCH (19:46)
[2017-01-13] MEDS: ATORVASTATIN CALCIUM 20 MG TABLET PO SCH (19:47)
[2017-01-13] MEDS ORDERED: IV NORMAL SALINE 500ML 500 ML ONE (21:14)
[2017-01-13] MEDS ORDERED: IV NORMAL SALINE 1,000ML 1,000 ML IV ONE (21:25)
--- NOTE | 2017-01-13 22:53 | CONS ---
DATE OF CONSULTATION: 01/12/2017 PSYCHIATRIC CONSULTATION This late entry for date of service 01/12/2017. I met with the patient the evening of 01/12/2017 for this evaluation. Discussed with nursing staff, reviewed the chart. IDENTIFYING DATA: The patient is an 81-year-old male seen in ICU bed [address] [facility] at the request of Dr. Blanco on account of the patient's worsening symptoms of depression, abnormal grieving process with increased usage of alcohol. I have been asked to consult to make recommendations from psychiatric standpoint. CHIEF COMPLAINT: "Yes, depressed. I drink beer." It is difficult to understand the patient as he is somewhat sedated, having received Librium for alcohol detox. HISTORY OF PRESENT ILLNESS: The patient is an 81-year-old male who presents with worsening symptoms of depression, worsening insomnia due to dyspnea. He presented to his primary care physician's office with atrial fibrillation with RVR. He admits to being increasingly depressed since the of his son and then his . Reportedly, he stopped caring, stopped going to his physician's outpatient visits, started drinking and smoking. He denies any clear psychotic symptoms, suicidal or homicidal ideation, but is not very verbally forthcoming. No clear symptoms of bipolar disorder. He has had some worsening cognitive difficulties. PAST PSYCHIATRIC HISTORY: Positive for depression. PAST MEDICAL HISTORY: Hypertension, hyperlipidemia, history of pulmonary embolism, CVA, CHF, diabetes mellitus, BPH, reflux, DVT filter in place, COPD, legally blind. CURRENT PSYCHOTROPICS: The patient is on the detox protocol. ALLERGIES: PENICILLIN, IODINE, SHELLFISH. FAMILY HISTORY: Noncontributory. SOCIAL HISTORY: Reportedly, the patient lives at home and his daughter involved in his care. He is not very specific about alcohol abuse, but from the best I can understand, he admits to drinking increasing amounts of beer. MENTAL STATUS EXAMINATION: The patient is oriented to himself and situation. Speech, low in rate and rhythm, low in volume, often responses monosyllabic, abstraction fair, computation impaired, attention span short. Mood and affect is depressed. Intellect average. Insight somewhat limited, judgment marginal. Language function intact. No active psychotic symptoms, suicidal or homicidal ideation. Temperature 97.5, pulse 97, respirations 24, BP 118/91, pulse ox 94 on 2 liters nasal cannula. REVIEW OF SYSTEMS: Shortness of breath, tiredness. No CV, , GI system symptoms on review. IMPRESSION: Alcohol abuse, dependence withdrawal. Major depressive disorder, recurrent. Anxiety disorder, unspecified. Bereavement versus adjustment disorder with depressed mood. Rest diagnosis is unchanged from above. PLAN: Continue with the detox protocol. Would also recommend starting the patient on Lexapro 5 mg a day. He would need outpatient psychiatric followup, perhaps at the [facility] post discharge. Dr. Blanco, thank you for the opportunity to participate in your patient's care. We will follow with you. MAN Richard WADDELL MD DR: SÁNCHEZ/nts JOB#: [id number] / [id number]
[2017-01-14] VITALS (16 sets, daily range): BP systolic 83–118; BP diastolic 63–85
--- NOTE | 2017-01-14 00:46 | PN ---
DATE: 01/13/2017 SUBJECTIVE: An 81-year-old male patient in with congestive heart failure, atrial fibrillation with rapid ventricular response and abdominal pain as well. The patient's CT scan shows a 4.4 cm infrarenal abdominal aortic aneurysm; otherwise, basically unremarkable except for the pleural effusions. Grossly he has congestive heart failure. His heart rate is under better control with Cardiology. PHYSICAL EXAMINATION: VITAL SIGNS: Blood pressure 100/80, respiratory rate 20, pulse 110 and temperature afebrile, on 2 liters nasal cannula. GENERAL: The patient seems to be almost to withdraw from his alcohol, apparently he is an alcoholic. The patient otherwise on exam, the patient is more or less alert, but very confused. LUNGS: Diminished throughout, poor movement of air. CARDIOVASCULAR: Irregular regular rhythm. ABDOMEN: Protuberant. EXTREMITIES: No clubbing, cyanosis. +1 pitting edema. NEUROLOGIC: Baseline for him, he is markedly confused, disoriented. LABORATORY DATA: White count 15,000 up. Chemistries unremarkable. The patient's troponins have been borderline. The patient otherwise will be monitored carefully, thyroid is good, D-dimer was positive, but he will have a V/Q scan and make further evaluation on that as indicated. IMPRESSION: Atrial fibrillation with rapid ventricular response, acute on top of chronic diastolic heart failure, leukocytosis, elevated blood sugars, type 2 diabetes, alcoholism. PLAN: As above. WILL GOMEZ MD DR: LAWANDA/kristel JOB#: [id number] / [id number]
[2017-01-14] MEDS: IPRATRPIUM/ALBUTEROL 0.5/2.5MG 3 ML NEBU. NEB SCH ×4 (05:21→20:18)
[2017-01-14 06:29] LABS: CALCIUM 8.9 mg/dL (8.5-10.1); CREATININE 1.2 mg/dL (0.7-1.3); GFR 58.1; POTASSIUM 4.4 mmol/L (3.5-5.1)
[2017-01-14 06:40] LABS: BASO % 0 % (0-3); EOS # 0.1 x10^3/uL (0.0-0.7); EOS % 1 % (0-3); HEMOGLOBIN 15.5 g/dL (13.0-17.5); LYMPH # 1.4 x10^3/uL (1.0-4.8); LYMPH % 13 % (24-48); MEAN CORPUSCULAR HEMOGLOBIN 33 pg (25-35); MEAN CORPUSCULAR HGB CONC 33 g/dL (31-37); MEAN CORPUSCULAR VOLUME 99 fL (79-100); MONO # 1.9 x10^3/uL (0.0-1.1); MONO % 16 % (0-9); NEUT % 70 % (31-73); PLATELET COUNT 173 x10^3/uL (140-400); RED BLOOD COUNT 4.75 x10^6/uL (4.30-5.70); RED CELL DISTRIBUTION WIDTH 14.1 % (11.5-14.5); WHITE BLOOD COUNT 11.4 x10^3/uL (4.0-11.0)
[2017-01-14] MEDS: SMZ/TMP 800/160MG TABLET. PO SCH (07:48)
[2017-01-14] MEDS: TAMSULOSIN 0.4 MG CAP.ER.24H. PO SCH (07:48)
[2017-01-14] MEDS: POTASSIUM CHLORIDE 20 MEQ TABLET.ER. PO SCH ×2 (07:48→20:55)
[2017-01-14] MEDS: chlordiazePOXIDE HCL 25 MG CAPSULE PO PRN (07:48)
[2017-01-14] MEDS: NICOTINE 21MG PATCH. TD SCH (07:48)
[2017-01-14] MEDS: MAGNESIUM OXIDE 400 MG TABLET PO SCH (07:49)
[2017-01-14] MEDS: THIAMINE 100 MG TABLET. PO SCH (07:49)
[2017-01-14] MEDS: APIXABAN 5 MG TABLET. PO SCH ×2 (07:49→20:55)
[2017-01-14] MEDS: DIGOXIN 125 MCG TABLET PO SCH (07:49)
[2017-01-14] MEDS: PANTOPRAZOLE 40 MG TABLET. PO SCH (07:49)
[2017-01-14] MEDS: CITALOPRAM 10 MG TABLET. PO SCH (07:49)
[2017-01-14] MEDS: METOPROLOL SUCC 24HR ER 25 MG TAB.ER.24H. PO SCH (07:50)
[2017-01-14] MEDS: FUROSEMIDE 40 MG/4 ML VIAL IVP SCH (07:50)
[2017-01-14] MEDS ORDERED: MAGNESIUM SULFATE 2GM 50 ML IV ONE (08:00)
[2017-01-14] MEDS ORDERED: LOSARTAN 50 MG TABLET. PO SCH (09:00)
[2017-01-14] MEDS: PIOGLITAZONE 15 MG TABLET. PO SCH (09:00)
--- NOTE | 2017-01-14 09:23 | PDOC ---
PROGRESS NOTES Assessment 1. atrial fibrillation with RVR - remains with uncontrolled rate. not tolerating metoprolol due to low blood pressure. continue digoxin. stop losartan. add amiodarone. Plan for cardioversion post cardiac cath. 2. acute on chronic systolic heart failure - continue diuresis with lasix. monitor labs. BNP improving. 3. CMP EF 25-30%, plan cardiac cath tomorrow if patient agreeable. Life Vest for prevention of SCD. 4. Diabetes mellitus - per PCP 5. hx DVT/PE - s/p IVC filter 6. major depression - per psych/PCP 7. 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 remains edematous. no chest pain. remains atrial fibrillation with rate 100-120s. Agrees to "do what ever you tell me" for his heart. states "i dont want to , but i do" and is tearful when talking about his lost family members. Says he wants to stop smoking and agrees to stop drinking. Objective Vital Signs Date Time Temp Pulse Resp B/P (MAP) Pulse Ox O2 Delivery O2 Flow Rate FiO2 01/14/17 09:00 120 99/85 01/14/17 07:26 24 96 Nasal Cannula 2.0 01/14/17 02:34 97.4 Intake and Output 01/15/17 07:00 Intake Total 600 ml Balance 600 ml Intake Oral 600 ml Abdomen: Normal bowel sounds, Soft, No tenderness Heart: Other (irregular rate and rhythm, no gallops) Extremities: Other (2+ edema) General: Alert, Oriented X3, Cooperative, No acute distress HEENT: Atraumatic, EOMI Lungs: Other (improving, continues to have basilar crackles) Neuro: Normal speech, Strength at 5/5 X4 ext Psych/Mental Status: Other (oriented x3, depressed and intermittently tearful.) Review of Relevant I have reviewed the following items hardy (where applicable) has been applied. Labs Laboratory Tests Test 01/12/17 09:27 01/12/17 09:55 01/12/17 12:55 01/12/17 14:50 White Blood Count 8.6 x10^3/uL (4.0-11.0) Red Blood Count 5.01 x10^6/uL (4.30-5.70) Hemoglobin 16.7 g/dL (13.0-17.5) Hematocrit 49.9 % (39.0-53.0) Mean Corpuscular Volume 100 fL (79-100) Mean Corpuscular Hemoglobin 33 pg (25-35) Mean Corpuscular Hemoglobin Concent 34 g/dL (31-37) Red Cell Distribution Width 14.1 % (11.5-14.5) Platelet Count 191 x10^3/uL (140-400) Neutrophils (%) (Auto) 76 % (31-73) Lymphocytes (%) (Auto) 9 % (24-48) Monocytes (%) (Auto) 14 % (0-9) Eosinophils (%) (Auto) 0 % (0-3) Basophils (%) (Auto) 0 % (0-3) Neutrophils # (Auto) 6.6 x10^3uL (1.8-7.7) Lymphocytes # (Auto) 0.8 x10^3/uL (1.0-4.8) Monocytes # (Auto) 1.2 x10^3/uL (0.0-1.1) Eosinophils # (Auto) 0.0 x10^3/uL (0.0-0.7) Basophils # (Auto) 0.0 x10^3/uL (0.0-0.2) D-Dimer (Ami) 0.76 mg/L (0.00-0.50) Sodium Level 133 mmol/L (136-145) Potassium Level 3.8 mmol/L (3.5-5.1) Chloride Level 98 mmol/L (98-107) Carbon Dioxide Level 30 mmol/L (21-32) Anion Gap 5 (6-14) Blood Urea Nitrogen 19 mg/dL (8-26) Creatinine 1.3 mg/dL (0.7-1.3) Estimated GFR (Cockcroft-Gault) 53.0 BUN/Creatinine Ratio 15 (6-20) Glucose Level 129 mg/dL (70-99) Calcium Level 9.1 mg/dL (8.5-10.1) Total Bilirubin 2.0 mg/dL (0.2-1.0) Direct Bilirubin 0.9 mg/dL (0.0-0.2) Aspartate Amino Transf (AST/SGOT) 38 U/L (15-37) Alanine Aminotransferase (ALT/SGPT) 18 U/L (16-63) Alkaline Phosphatase 131 U/L (46-116) Creatine Kinase 82 U/L (39-308) Troponin I Quantitative 0.055 ng/mL (0-0.055) 0.054 ng/mL (0-0.055) RD-Shv-[id number]-Type Natriuretic Peptide 52068 pg/mL (0-449) Total Protein 6.5 g/dL (6.4-8.2) Albumin 3.1 g/dL (3.4-5.0) Albumin/Globulin Ratio 0.9 (1.0-1.7) Thyroid Stimulating Hormone (TSH) 1.090 uIU/mL (0.358-3.740) Blood Gas pH 7.41 (7.35-7.46) Blood Gas PCO2 36 mmHg (35-46) Blood Gas PO2 98 mmHg (71-100) Blood Gas HCO3 23 mmol/L (21-28) Arterial Bld O2 Saturation (Calc) 98 % (92-99) FiO2 28 % Nasal Screen MRSA (PCR) Negative (Negative) Test 01/12/17 15:32 01/12/17 20:55 01/13/17 05:35 01/14/17 05:37 Urine Collection Type Unknown Urine Color Straw Urine Clarity Clear Urine pH 5.5 Urine Specific [place] 1.010 Urine Protein Neg (NEG-TRACE) Urine Glucose (UA) Neg mg/dL (NEG) Urine Ketones (Stick) Neg mg/dL (NEG) Urine Blood Mod (NEG) Urine Nitrite Neg (NEG) Urine Bilirubin Neg (NEG) Urine Urobilinogen Dipstick 0.2 mg/dL (0.2 mg/dL) Urine Leukocyte Esterase Trace (NEG) Urine RBC 1-2 /HPF (0-2) Urine WBC 1-4 /HPF (0-4) Urine Squamous Epithelial Cells Occ /LPF Urine Bacteria Few /HPF (0-FEW) Urine Opiates Screen Pos (NEG) Urine Methadone Screen Neg (NEG) Urine Barbiturates Neg (NEG) Urine Phencyclidine Screen Neg (NEG) Urine Amphetamine/Methamphetamine Neg (NEG) Urine Benzodiazepines Screen Neg (NEG) Urine Cocaine Screen Neg (NEG) Urine Cannabinoids Screen Neg (NEG) Urine Ethyl Alcohol Neg (NEG) Troponin I Quantitative 0.041 ng/mL (0-0.055) White Blood Count 15.1 x10^3/uL (4.0-11.0) 11.4 x10^3/uL (4.0-11.0) Red Blood Count 4.71 x10^6/uL (4.30-5.70) 4.75 x10^6/uL (4.30-5.70) Hemoglobin 15.4 g/dL (13.0-17.5) 15.5 g/dL (13.0-17.5) Hematocrit 46.3 % (39.0-53.0) 47.0 % (39.0-53.0) Mean Corpuscular Volume 98 fL (79-100) 99 fL (79-100) Mean Corpuscular Hemoglobin 33 pg (25-35) 33 pg (25-35) Mean Corpuscular Hemoglobin Concent 33 g/dL (31-37) 33 g/dL (31-37) Red Cell Distribution Width 13.9 % (11.5-14.5) 14.1 % (11.5-14.5) Platelet Count 181 x10^3/uL (140-400) 173 x10^3/uL (140-400) Neutrophils (%) (Auto) 80 % (31-73) 70 % (31-73) Lymphocytes (%) (Auto) 7 % (24-48) 13 % (24-48) Monocytes (%) (Auto) 14 % (0-9) 16 % (0-9) Eosinophils (%) (Auto) 0 % (0-3) 1 % (0-3) Basophils (%) (Auto) 0 % (0-3) 0 % (0-3) Neutrophils # (Auto) 12.0 x10^3uL (1.8-7.7) 8.0 x10^3uL (1.8-7.7) Lymphocytes # (Auto) 1.0 x10^3/uL (1.0-4.8) 1.4 x10^3/uL (1.0-4.8) Monocytes # (Auto) 2.1 x10^3/uL (0.0-1.1) 1.9 x10^3/uL (0.0-1.1) Eosinophils # (Auto) 0.0 x10^3/uL (0.0-0.7) 0.1 x10^3/uL (0.0-0.7) Basophils # (Auto) 0.0 x10^3/uL (0.0-0.2) 0.0 x10^3/uL (0.0-0.2) Segmented Neutrophils % 81 % (35-66) Band Neutrophils % 2 % (0-9) Lymphocytes % 6 % (24-48) Monocytes % 11 % (0-10) Platelet Estimate Adequate (ADEQUATE) Large Platelets Occ Giant Platelets Occ Sodium Level 136 mmol/L (136-145) 138 mmol/L (136-145) Potassium Level 3.7 mmol/L (3.5-5.1) 4.4 mmol/L (3.5-5.1) Chloride Level 100 mmol/L (98-107) 103 mmol/L (98-107) Carbon Dioxide Level 32 mmol/L (21-32) 33 mmol/L (21-32) Anion Gap 4 (6-14) 2 (6-14) Blood Urea Nitrogen 17 mg/dL (8-26) 16 mg/dL (8-26) Creatinine 1.2 mg/dL (0.7-1.3) 1.2 mg/dL (0.7-1.3) Estimated GFR (Cockcroft-Gault) 58.1 58.1 Glucose Level 109 mg/dL (70-99) 99 mg/dL (70-99) Calcium Level 8.9 mg/dL (8.5-10.1) 8.9 mg/dL (8.5-10.1) Magnesium Level 1.6 mg/dL (1.8-2.4) FC-Sdb-[id number]-Type Natriuretic Peptide 5113 pg/mL (0-449) Test 01/14/17 07:39 Glucose (Fingerstick) 96 mg/dL (70-99) Microbiology 01/12/17 Urine Culture - Preliminary, Resulted 01/12/17 Urine Culture Result 1 (JOSE F) - Preliminary, Resulted Medications Current Medications Albuterol/ Ipratropium (Duoneb) 3 ml RTQID NEB Last administered on 01/14/17t 05:21; Start 01/12/17 at 12:00 Lorazepam (Ativan) 4 mg PRN Q1HR PRN PO For CIWA 8-14; Start 01/12/17 at 09:30 ; Stop 01/12/17 at 15:49; Status DC Lorazepam (Ativan) 8 mg PRN Q1HR PRN PO For CIWA 15 or greater; Start 01/12/17 at 09:30; Stop 01/12/17 at 15:49; Status DC Lorazepam (Ativan) 2 mg PRN Q1HR PRN IV For CIWA 8-14 Last administered on 01/12 12:06; Start 01/12/17 at 09:30; Stop 01/12/17 at 15:49; Status DC Lorazepam (Ativan) 4 mg PRN Q1HR PRN IV For CIWA 15 or greater; Start 01/12/17 at 09:30; Stop 01/12/17 at 15:49; Status DC Nicotine (Nicoderm Cq 21mg) 1 patch DAILY TD Last administered on 01/14/17 07: 48; Start 01/12/17 at 09:45 Ondansetron HCl (Zofran) 4 mg PRN Q6HRS PRN IV NAUSEA/VOMITING; Start 01/12/17 at 09:30 Albuterol/ Ipratropium (Duoneb) 3 ml STK-MED ONCE .ROUTE ; Start 01/12/17 at 09: 43; Stop 01/12/17 at 09:44; Status DC Diltiazem HCl (Cardizem) 10 mg 1X ONCE IVP ; Start 01/12/17 at 10:30; Stop at 10:30; Status DC Diltiazem HCl 100 mg/Dextrose 100 ml @ 5 mls/hr CONT PRN IV SEE I/O RECORD Last administered on 01/13/17 11:58; Start 01/12/17 at 10:15 Furosemide (Lasix) 40 mg BID92 IVP Last administered on 01/13/17 13:18; Start 01/12/17 at 11:15; Stop 01/13/17 at 16:51; Status DC Potassium Chloride (Klor-Con) 20 meq BID PO Last administered on 01/12/17 19: 57; Start 01/12/17 at 11:15; Stop 01/13/17 at 07:39; Status DC Chlorphenir/ Hydrocodone Polistirex (Tussionex) 5 ml PRN Q12HR PRN PO COUGH Last administered on 01/13/17 01:22; Start 01/12/17 at 12:00 Digoxin (Lanoxin) 500 mcg 1X ONCE IV Last administered on 01/12/17 12:32; Start 01/12/17 at 12:30; Stop 01/12/17 at 12:31; Status DC Apixaban (Eliquis) 5 mg BID PO Last administered on 01/14/17 07:49; Start at 21:00 Digoxin (Lanoxin) 125 mcg DAILY PO Last administered on 01/14/17 07:49; Start 01/13/17 at 09:00 Pioglitazone HCl (Actos) 15 mg DAILY PO ; Start 01/13/17 at 09:00 Tamsulosin HCl (Flomax) 0.4 mg DAILY PO Last administered on 01/14/17 07:48; Start 01/13/17 at 09:00 Atorvastatin Calcium (Lipitor) 40 mg QHS PO Last administered on 01/13/17 19: 47; Start 01/12/17 at 21:00 Non-Formulary Medication 4 gm PRN QID PRN IH SHORTNESS OF BREATH; Start at 13:30; Stop 01/12/17 at 16:08; Status DC Non-Formulary Medication 100 mg BID PO ; Start 01/12/17 at 21:00; Status UNV Non-Formulary Medication 100 mg BID PO ; Start 01/12/17 at 21:00; Status UNV Losartan Potassium (Cozaar) 100 mg DAILY PO ; Start 01/13/17 at 09:00; Stop at 09:33; Status DC Pantoprazole Sodium (Protonix) 40 mg DAILYAC PO Last administered on 01/14/17 07:49; Start 01/13/17 at 07:30 Furosemide (Lasix) 40 mg DAILY IVP ; Start 01/13/17 at 09:00; Stop 01/13/17 at 09:00; Status DC Fentanyl Citrate (Fentanyl 2ml Vial) 50 mcg PRN Q1HR PRN IV PAIN; Start at 15:15 Fentanyl Citrate (Fentanyl 2ml Vial) 100 mcg PRN Q2HR PRN IV SEVERE PAIN Last administered on 01/13/17 08:56; Start 01/12/17 at 15:15 Chlordiazepoxide (Librium) 50 mg PRN Q1HR PRN PO For CIWA 8-14 Last administered on 01/14/17 07:48; Start 01/12/17 at 15:15 Chlordiazepoxide (Librium) 100 mg PRN Q1HR PRN PO For CIWA 15 or greater; Start 01/12/17 at 15:15 Albuterol/ Ipratropium (Duoneb) 3 ml PRN QID PRN NEB SOA Last administered on 02:49; Start 01/12/17 at 16:00 Olanzapine (ZyPREXA ZYDIS) 2.5 mg PRN Q2HR PRN PO ANXIETY / AGITATION; Start at 18:45 Citalopram Hydrobromide (CeleXA) 10 mg DAILY PO Last administered on 01/14/17 07:49; Start 01/13/17 at 09:00 Potassium Chloride (Klor-Con) 40 meq BID PO Last administered on 01/14/17 07: 48; Start 01/13/17 at 09:00 Losartan Potassium (Cozaar) 50 mg DAILY PO ; Start 01/14/17 at 09:00 Digoxin (Lanoxin) 250 mcg 1X ONCE IV Last administered on 01/13/17 10:26; Start 01/13/17 at 10:45; Stop 01/13/17 at 10:47; Status DC Metoprolol Succinate (Toprol Xl) 25 mg 1X ONCE PO Last administered on 15:25; Start 01/13/17 at 13:20; Stop 01/13/17 at 13:21; Status DC Metoprolol Succinate (Toprol Xl) 25 mg DAILY PO Last administered on 01/14/17 07:50; Start 01/14/17 at 09:00 Trimethoprim/ Sulfamethoxazole (Bactrim Ds) 1 tab BID PO Last administered on 07:48; Start 01/13/17 at 21:00; Stop 01/14/17 at 08:45; Status DC Furosemide (Lasix) 40 mg DAILY08 IVP Last administered on 01/14/17 07:50; Start 01/14/17 at 08:00 Thiamine HCl (Vitamin B-1) 100 mg DAILY PO Last administered on 01/14/17 07:49 ; Start 01/14/17 at 09:00 Magnesium Oxide (Magnesium Oxide) 400 mg DAILY PO Last administered on 07:49; Start 01/14/17 at 09:00 Sodium Chloride 1,000 ml @ 1,000 mls/hr 1X ONCE IV ; Start 01/13/17 at 21:25; Stop 01/13/17 at 22:24; Status DC Sodium Chloride 500 ml @ As Directed STK-MED ONCE .ROUTE Last administered on 01/13/17 21:14; Start 01/13/17 at 21:14; Stop 01/13/17 at 21:18; Status DC Magnesium Sulfate 50 ml @ 25 mls/hr 1X ONCE IV Last administered on 01/14/17 07:48; Start 01/14/17 at 08:00; Stop 01/14/17 at 09:59 Levofloxacin/ Dextrose 150 ml @ 150 mls/hr DAILY IV ; Start 01/14/17 at 09:00 Vancomycin HCl (Vanco Per Pharmacy) 1 each PRN DAILY PRN MC SEE COMMENTS; Start 01/14/17 at 08:45 Vancomycin HCl 2 gm/Sodium Chloride 500 ml @ 250 mls/hr 1X ONCE IV ; Start at 11:00; Stop 01/14/17 at 12:59 Vancomycin HCl 1.5 gm/Sodium Chloride 500 ml @ 250 mls/hr Q24H IV ; Start at 11:00 Vancomycin HCl 1 each 1X ONCE MC ; Start 01/16/17 at 10:30; Stop 01/16/17 at 10: 31 Active Scripts Active Toprol Xl (Metoprolol Succinate) 100 Mg Tab.er.24h 100 Mg PO BID Lanoxin (Digoxin) 125 Mcg Tablet 125 Mcg PO DAILY Reported Eliquis (Apixaban) 5 Mg Tablet 5 Mg PO BID Omeprazole 40 Mg Capsule.dr 40 Mg PO DAILY LAST DOSE; TODAY BEFORE BREAKFAST NEXT DOSE; TOMORROW BEFORE BREAKFAST Furosemide 40 Mg Tablet 40 Mg PO DAILY LAST DOSE; TODAY AM NEXT DOSE; TOMORROW AM Pioglitazone Hcl 15 Mg Tablet 15 Mg PO DAILY LAST DOSE; TODAY WITH BREAKFAST NEXT DOSE; TOMORROW WITH BREAKFAST Atorvastatin Calcium 40 Mg Tablet 40 Mg PO QHS LAST DOSE; LAST NIGHT AT BEDTIME NEXT DOSE; TONIGHT AT BEDTIME Combivent Respimat Inhal (Ipratropium/Albuterol Sulfate) 4 Gm Aer.w.adap 4 Gm IH PRN QID PRN LAST DOSE; NEXT DOSE; TODAY IF NEEDED Vitals/I & O Vital Sign - Last 24 Hours 01/13/17 01/13/17 01/13/17 01/13/17 09:26 10:15 10:21 10:26 Pulse 99 115 Resp 20 B/P (MAP) 102/84 (90) Pulse Ox 95 94 O2 Delivery Room Air Nasal Cannula Nasal Cannula O2 Flow Rate 2.0 2.0 01/13/17 01/13/17 01/13/17 01/13/17 11:00 11:15 11:25 12:15 Temp 97.3 Pulse 90 94 Resp 20 18 B/P (MAP) 84/59 (67) 101/64 (76) Pulse Ox 94 94 O2 Delivery Nasal Cannula Nasal Cannula Nasal Cannula O2 Flow Rate 2.0 2.0 2.0 01/13/17 01/13/17 01/13/17 01/13/17 13:15 14:15 15:25 15:30 Pulse 90 98 110 118 Resp 18 20 18 B/P (MAP) 101/74 (83) 95/66 (76) 81/57 (65) Pulse Ox 96 95 95 O2 Delivery Nasal Cannula Nasal Cannula Nasal Cannula O2 Flow Rate 2.0 2.0 2.0 01/13/17 01/13/17 01/13/17 01/13/17 15:44 16:01 16:04 16:30 Temp 98.9 98.6 Pulse 90 Resp 18 B/P (MAP) 88/61 (70) Pulse Ox 95 95 O2 Delivery Nasal Cannula Nasal Cannula O2 Flow Rate 2.0 2.0 01/13/17 01/13/17 01/13/17 01/13/17 17:30 18:15 18:38 20:00 Temp 97.4 Pulse 120 115 Resp 20 20 B/P (MAP) 99/76 (84) 81/57 (65) Pulse Ox 95 93 O2 Delivery Nasal Cannula Nasal Cannula Nasal Cannula O2 Flow Rate 2.0 2.0 2.0 01/13/17 01/13/17 01/13/17 01/13/17 20:00 21:04 21:29 21:49 Pulse 101 96 105 Resp 24 B/P (MAP) 98/73 (81) 75/50 (58) 115/71 (86) Pulse Ox 93 95 O2 Delivery Nasal Cannula Nasal Cannula O2 Flow Rate 2.0 2.0 01/13/17 01/13/17 01/14/17 01/14/17 22:22 23:05 00:44 02:34 Temp 97.4 Pulse 70 97 101 85 Resp 31 B/P (MAP) 95/75 (82) 93/65 (74) 89/73 (78) 96/71 (79) Pulse Ox 97 O2 Delivery Nasal Cannula O2 Flow Rate 2.0 01/14/17 01/14/17 01/14/17 01/14/17 04:33 05:24 06:11 07:21 Pulse 95 103 Resp 35 32 B/P (MAP) 107/80 (89) 102/77 (85) Pulse Ox 95 96 96 O2 Delivery Nasal Cannula Nasal Cannula Nasal Cannula Nasal Cannula O2 Flow Rate 2.0 2.0 2.0 2.0 01/14/17 01/14/17 01/14/17 01/14/17 07:26 07:49 07:50 09:00 Pulse 103 105 101 120 Resp 24 B/P (MAP) 87/70 (76) 99/85 Pulse Ox 96 O2 Delivery Nasal Cannula O2 Flow Rate 2.0 Intake and Output 01/14/17 01/14/17 01/15/17 15:00 23:00 07:00 Intake Total 600 ml Balance 600 ml JUANA BRAVO APRN Jan 14, 2017 09:23
[2017-01-14] MEDS: VANCOMYCIN PER PHARMACY MC PRN (10:09)
[2017-01-14] MEDS ORDERED: VANCOMYCIN 2 GM in IV NORMAL SALINE 500ML 500 ML IV ONE (11:00)
[2017-01-14] MEDS ORDERED: AMIODARONE 150 MG in IV DEXTROSE 5% 100 ML IVP ONE (11:00)
[2017-01-14] MEDS ORDERED: AMIODARONE 900 MG in IV DEXTROSE 5% 500 ML IV PRN (11:30)
--- NOTE | 2017-01-14 18:55 | PDOC ---
Exam Jeison Demential Exam: Jeison Note: Please also refer to the separate dictated note~for this date of service dictated separately.~Patient seen individually. Discussed the patient with Nursing staff reviewed the chart.~Reviewed interim history and current functioning. Reviewed vital signs,~Labs/ Radiology~and current medications noted below. Continue current treatment with the changes noted in the dictated addendum note Assessment: Vital Signs: Vital Signs Date Time Temp Pulse Resp B/P (MAP) Pulse Ox O2 Delivery O2 Flow Rate FiO2 01/14/17 18:28 97.6 102 38 92/75 (81) 97 Nasal Cannula 2.0 I&O Intake and Output 01/15/17 07:00 Intake Total 2140 ml Output Total 1250 ml Balance 890 ml Intake Oral 1200 ml IV Total 940 ml Output Urine Total 1250 ml # Bowel Movements 1 Labs: Laboratory Tests Test 01/14/17 05:37 01/14/17 07:39 01/14/17 11:43 01/14/17 16:25 White Blood Count 11.4 x10^3/uL (4.0-11.0) H Red Blood Count 4.75 x10^6/uL (4.30-5.70) Hemoglobin 15.5 g/dL (13.0-17.5) Hematocrit 47.0 % (39.0-53.0) Mean Corpuscular Volume 99 fL (79-100) Mean Corpuscular Hemoglobin 33 pg (25-35) Mean Corpuscular Hemoglobin Concent 33 g/dL (31-37) Red Cell Distribution Width 14.1 % (11.5-14.5) Platelet Count 173 x10^3/uL (140-400) Neutrophils (%) (Auto) 70 % (31-73) Lymphocytes (%) (Auto) 13 % (24-48) L Monocytes (%) (Auto) 16 % (0-9) H Eosinophils (%) (Auto) 1 % (0-3) Basophils (%) (Auto) 0 % (0-3) Neutrophils # (Auto) 8.0 x10^3uL (1.8-7.7) H Lymphocytes # (Auto) 1.4 x10^3/uL (1.0-4.8) Monocytes # (Auto) 1.9 x10^3/uL (0.0-1.1) H Eosinophils # (Auto) 0.1 x10^3/uL (0.0-0.7) Basophils # (Auto) 0.0 x10^3/uL (0.0-0.2) Sodium Level 138 mmol/L (136-145) Potassium Level 4.4 mmol/L (3.5-5.1) Chloride Level 103 mmol/L (98-107) Carbon Dioxide Level 33 mmol/L (21-32) H Anion Gap 2 (6-14) L Blood Urea Nitrogen 16 mg/dL (8-26) Creatinine 1.2 mg/dL (0.7-1.3) Estimated GFR (Cockcroft-Gault) 58.1 Glucose Level 99 mg/dL (70-99) Calcium Level 8.9 mg/dL (8.5-10.1) Magnesium Level 1.6 mg/dL (1.8-2.4) L ZL-Dhl-A-Type Natriuretic Peptide 5113 pg/mL (0-449) H Glucose (Fingerstick) 96 mg/dL (70-99) 169 mg/dL (70-99) H 132 mg/dL (70-99) H Current Medications: Meds: Current Medications Albuterol/ Ipratropium (Duoneb) 3 ml RTQID NEB Last administered on 01/14/17 15:22; Start 01/12/17 at 12:00 Lorazepam (Ativan) 4 mg PRN Q1HR PRN PO For CIWA 8-14; Start 01/12/17 at 09:30 ; Stop 01/12/17 at 15:49; Status DC Lorazepam (Ativan) 8 mg PRN Q1HR PRN PO For CIWA 15 or greater; Start 01/12/17 at 09:30; Stop 01/12/17 at 15:49; Status DC Lorazepam (Ativan) 2 mg PRN Q1HR PRN IV For CIWA 8-14 Last administered on 01/12 12:06; Start 01/12/17 at 09:30; Stop 01/12/17 at 15:49; Status DC Lorazepam (Ativan) 4 mg PRN Q1HR PRN IV For CIWA 15 or greater; Start 01/12/17 at 09:30; Stop 01/12/17 at 15:49; Status DC Nicotine (Nicoderm Cq 21mg) 1 patch DAILY TD Last administered on 01/14/17 07: 48; Start 01/12/17 at 09:45 Ondansetron HCl (Zofran) 4 mg PRN Q6HRS PRN IV NAUSEA/VOMITING; Start 01/12/17 at 09:30 Albuterol/ Ipratropium (Duoneb) 3 ml STK-MED ONCE .ROUTE ; Start 01/12/17 at 09: 43; Stop 01/12/17 at 09:44; Status DC Diltiazem HCl (Cardizem) 10 mg 1X ONCE IVP ; Start 01/12/17 at 10:30; Stop at 10:30; Status DC Diltiazem HCl 100 mg/Dextrose 100 ml @ 5 mls/hr CONT PRN IV SEE I/O RECORD Last administered on 01/13/17 11:58; Start 01/12/17 at 10:15; Stop 01/14/17 at 10:45; Status DC Furosemide (Lasix) 40 mg BID92 IVP Last administered on 01/13/17 13:18; Start 01/12/17 at 11:15; Stop 01/13/17 at 16:51; Status DC Potassium Chloride (Klor-Con) 20 meq BID PO Last administered on 01/12/17 19: 57; Start 01/12/17 at 11:15; Stop 01/13/17 at 07:39; Status DC Chlorphenir/ Hydrocodone Polistirex (Tussionex) 5 ml PRN Q12HR PRN PO COUGH Last administered on 01/13/17 01:22; Start 01/12/17 at 12:00 Digoxin (Lanoxin) 500 mcg 1X ONCE IV Last administered on 01/12/17 12:32; Start 01/12/17 at 12:30; Stop 01/12/17 at 12:31; Status DC Apixaban (Eliquis) 5 mg BID PO Last administered on 01/14/17 07:49; Start at 21:00 Digoxin (Lanoxin) 125 mcg DAILY PO Last administered on 01/14/17 07:49; Start 01/13/17 at 09:00 Pioglitazone HCl (Actos) 15 mg DAILY PO ; Start 01/13/17 at 09:00; Stop at 10:46; Status DC Tamsulosin HCl (Flomax) 0.4 mg DAILY PO Last administered on 01/14/17 07:48; Start 01/13/17 at 09:00 Atorvastatin Calcium (Lipitor) 40 mg QHS PO Last administered on 01/13/17 19: 47; Start 01/12/17 at 21:00 Non-Formulary Medication 4 gm PRN QID PRN IH SHORTNESS OF BREATH; Start at 13:30; Stop 01/12/17 at 16:08; Status DC Non-Formulary Medication 100 mg BID PO ; Start 01/12/17 at 21:00; Status UNV Non-Formulary Medication 100 mg BID PO ; Start 01/12/17 at 21:00; Status UNV Losartan Potassium (Cozaar) 100 mg DAILY PO ; Start 01/13/17 at 09:00; Stop at 09:33; Status DC Pantoprazole Sodium (Protonix) 40 mg DAILYAC PO Last administered on 01/14/17 07:49; Start 01/13/17 at 07:30 Furosemide (Lasix) 40 mg DAILY IVP ; Start 01/13/17 at 09:00; Stop 01/13/17 at 09:00; Status DC Fentanyl Citrate (Fentanyl 2ml Vial) 50 mcg PRN Q1HR PRN IV PAIN; Start at 15:15 Fentanyl Citrate (Fentanyl 2ml Vial) 100 mcg PRN Q2HR PRN IV SEVERE PAIN Last administered on 01/13/17 08:56; Start 01/12/17 at 15:15 Chlordiazepoxide (Librium) 50 mg PRN Q1HR PRN PO For CIWA 8-14 Last administered on 01/14/17 07:48; Start 01/12/17 at 15:15 Chlordiazepoxide (Librium) 100 mg PRN Q1HR PRN PO For CIWA 15 or greater; Start 01/12/17 at 15:15 Albuterol/ Ipratropium (Duoneb) 3 ml PRN QID PRN NEB SOA Last administered on 02:49; Start 01/12/17 at 16:00 Olanzapine (ZyPREXA ZYDIS) 2.5 mg PRN Q2HR PRN PO ANXIETY / AGITATION; Start at 18:45 Citalopram Hydrobromide (CeleXA) 10 mg DAILY PO Last administered on 01/14/17 07:49; Start 01/13/17 at 09:00 Potassium Chloride (Klor-Con) 40 meq BID PO Last administered on 01/14/17 07: 48; Start 01/13/17 at 09:00 Losartan Potassium (Cozaar) 50 mg DAILY PO ; Start 01/14/17 at 09:00; Stop 01/14 at 11:20; Status DC Digoxin (Lanoxin) 250 mcg 1X ONCE IV Last administered on 01/13/17 10:26; Start 01/13/17 at 10:45; Stop 01/13/17 at 10:47; Status DC Metoprolol Succinate (Toprol Xl) 25 mg 1X ONCE PO Last administered on 15:25; Start 01/13/17 at 13:20; Stop 01/13/17 at 13:21; Status DC Metoprolol Succinate (Toprol Xl) 25 mg DAILY PO Last administered on 01/14/17 07:50; Start 01/14/17 at 09:00 Trimethoprim/ Sulfamethoxazole (Bactrim Ds) 1 tab BID PO Last administered on 07:48; Start 01/13/17 at 21:00; Stop 01/14/17 at 08:45; Status DC Furosemide (Lasix) 40 mg DAILY08 IVP Last administered on 01/14/17 07:50; Start 01/14/17 at 08:00 Thiamine HCl (Vitamin B-1) 100 mg DAILY PO Last administered on 01/14/17 07:49 ; Start 01/14/17 at 09:00 Magnesium Oxide (Magnesium Oxide) 400 mg DAILY PO Last administered on 07:49; Start 01/14/17 at 09:00 Sodium Chloride 1,000 ml @ 1,000 mls/hr 1X ONCE IV ; Start 01/13/17 at 21:25; Stop 01/13/17 at 22:24; Status DC Sodium Chloride 500 ml @ As Directed STK-MED ONCE .ROUTE Last administered on 01/13/17 21:14; Start 01/13/17 at 21:14; Stop 01/13/17 at 21:18; Status DC Magnesium Sulfate 50 ml @ 25 mls/hr 1X ONCE IV Last administered on 01/14/17 07:48; Start 01/14/17 at 08:00; Stop 01/14/17 at 09:59; Status DC Levofloxacin/ Dextrose 150 ml @ 150 mls/hr DAILY IV Last administered on 09:28; Start 01/14/17 at 09:00; Stop 01/14/17 at 16:28; Status DC Vancomycin HCl (Vanco Per Pharmacy) 1 each PRN DAILY PRN MC SEE COMMENTS Last administered on 01/14/17 10:09; Start 01/14/17 at 08:45 Vancomycin HCl 2 gm/Sodium Chloride 500 ml @ 250 mls/hr 1X ONCE IV Last administered on 01/14/17 10:37; Start 01/14/17 at 11:00; Stop 01/14/17 at 12:59 ; Status DC Vancomycin HCl 1.5 gm/Sodium Chloride 500 ml @ 250 mls/hr Q24H IV ; Start at 11:00 Vancomycin HCl 1 each 1X ONCE MC ; Start 01/16/17 at 10:30; Stop 01/16/17 at 10: 31 Amiodarone HCl 900 mg/Dextrose 518 ml @ 0 mls/hr CONT PRN IV SEE I/O RECORD Last administered on 01/14/17 11:25; Start 01/14/17 at 11:30; Stop 01/14/17 at 11:30; Status DC Amiodarone HCl 150 mg/Dextrose 103 ml @ 618 mls/hr 1X ONCE IVP Last administered on 01/14/17 11:24; Start 01/14/17 at 11:00; Stop 01/14/17 at 11:09 ; Status DC Active Scripts Active Toprol Xl (Metoprolol Succinate) 100 Mg Tab.er.24h 100 Mg PO BID Lanoxin (Digoxin) 125 Mcg Tablet 125 Mcg PO DAILY Reported Eliquis (Apixaban) 5 Mg Tablet 5 Mg PO BID Omeprazole 40 Mg Capsule.dr 40 Mg PO DAILY LAST DOSE; TODAY BEFORE BREAKFAST NEXT DOSE; TOMORROW BEFORE BREAKFAST Furosemide 40 Mg Tablet 40 Mg PO DAILY LAST DOSE; TODAY AM NEXT DOSE; TOMORROW AM Pioglitazone Hcl 15 Mg Tablet 15 Mg PO DAILY LAST DOSE; TODAY WITH BREAKFAST NEXT DOSE; TOMORROW WITH BREAKFAST Atorvastatin Calcium 40 Mg Tablet 40 Mg PO QHS LAST DOSE; LAST NIGHT AT BEDTIME NEXT DOSE; TONIGHT AT BEDTIME Combivent Respimat Inhal (Ipratropium/Albuterol Sulfate) 4 Gm Aer.w.adap 4 Gm IH PRN QID PRN LAST DOSE; NEXT DOSE; TODAY IF NEEDED Diagnosis: Problems: (1) Impulse control disorder (2) Major depressive disorder, recurrent episode (3) Alcohol withdrawal syndrome (4) CVA (cerebrovascular accident) RADHIKA WADDELL MD Jan 14, 2017 18:55
[2017-01-14] MEDS: ATORVASTATIN CALCIUM 20 MG TABLET PO SCH (20:55)
[2017-01-14] MEDS: HYDROcodone/CHLORPHEN POLIS 5 ML SUS.ER.12H PO PRN (20:56)
--- NOTE | 2017-01-14 23:01 | PN ---
DATE: SUBJECTIVE: An 81-year-old gentleman. The patient with atrial fibrillation with rapid ventricular response, still a little bit confused, still very weak, some hematuria. The patient's white count down to about 11,000. In some ways, he is feeling better, otherwise he is extremely weak, does not have a good social support at home. BNP down to 5100. His mentation is a little bit off and his inability to think what he could do and how he could do things at home. The patient otherwise seems to be breathing a little bit better. OBJECTIVE: VITAL SIGNS: Blood pressure still low at 99/85, respiratory rate 26, pulse 110 up to 120 at times, irregular, and afebrile. LUNGS: Diminished with some crackles noted in the bases. CARDIOVASCULAR: Irregularly irregular rhythm. ABDOMEN: Soft, nontender, no rebound or guarding, positive bowel sounds, no hepatosplenomegaly noted. EXTREMITIES: No clubbing, cyanosis. Trace edema noted. Urine shows hematuria, otherwise the patient will be continued to be monitored carefully, make further evaluation on him possibly skilled unit. Cardiology has several suggestions, see if he will follow those as far as treatment plan goes. IMPRESSION: Acute on top of chronic diastolic heart failure, atrial fibrillation with rapid ventricular response, leukocytosis, hematuria, elevated blood sugars, type 2 diabetes, history of alcoholism, mild dementia, major depressive disorder, anxiety disorder, syndrome. PLAN: Continue with present drug regimen. Get a V/Q scan, hopefully skilled unit tomorrow. WILL GOMEZ MD DR: LAWANDA/kristel JOB#: [id number] / [id number]
[2017-01-15] VITALS (18 sets, daily range): BP systolic 76–113; BP diastolic 51–76
--- NOTE | 2017-01-15 00:12 | PN ---
DATE: 01/13/2017 PSYCHIATRIC PROGRESS NOTE This is a late entry for 01/13/2017, covers elements not covered in my initial note of 01/13/2017. SUBJECTIVE: The patient was seen individually the evening of 01/13/2017. Per nursing report, he remains withdrawn, refusing to do anything asked of him. He remains depressed and refuses to go for custodial care or to a placement, just wants to return home. He states he has no problems and will continue to use alcohol. Insight is poor in this respect. He denies active suicidal ideation, but certainly given the circumstances prompting admission, some of his behaviors are reflective of him not caring for himself at all. MENTAL STATUS EXAM: The patient is in a reclining chair, oriented to himself and situation. Speech is difficult to understand, low in volume. Abstraction fair, computation impaired, language function intact. Mood and affect remains somewhat depressed. No active suicidal or homicidal ideation. Attention span short. Short term memory is impaired. LABORATORY DATA: Reviewed. We will check magnesium levels. IMPRESSION: Unchanged from initial note. PLAN: Start mag oxide 400 mg twice a day, thiamine 100 mg a day, continue with Librium detox protocol. Maintain Lexapro, may need to increase this. Consider augmentation with Abilify. The patient certainly seems to need a higher level of care than just returning home from the ICU. We will defer to social service staff to coordinate this. RADHIKA WADDELL MD DR: SÁNCHEZ/kristel JOB#: [id number] / [id number]
[2017-01-15] MEDS: IPRATRPIUM/ALBUTEROL 0.5/2.5MG 3 ML NEBU. NEB PRN (03:13)
[2017-01-15] MEDS: IPRATRPIUM/ALBUTEROL 0.5/2.5MG 3 ML NEBU. NEB SCH ×4 (05:28→21:24)
[2017-01-15 06:48] LABS: BASO % 0 % (0-3); EOS # 0.1 x10^3/uL (0.0-0.7); EOS % 1 % (0-3); HEMATOCRIT 45.7 % (39.0-53.0); HEMOGLOBIN 15.1 g/dL (13.0-17.5); LYMPH # 1.3 x10^3/uL (1.0-4.8); LYMPH % 13 % (24-48); MEAN CORPUSCULAR HEMOGLOBIN 33 pg (25-35); MEAN CORPUSCULAR HGB CONC 33 g/dL (31-37); MEAN CORPUSCULAR VOLUME 100 fL (79-100); MONO # 1.6 x10^3/uL (0.0-1.1); MONO % 16 % (0-9); NEUT # 6.8 x10^3uL (1.8-7.7); NEUT % 69 % (31-73); PLATELET COUNT 175 x10^3/uL (140-400); RED BLOOD COUNT 4.59 x10^6/uL (4.30-5.70); RED CELL DISTRIBUTION WIDTH 13.9 % (11.5-14.5); WHITE BLOOD COUNT 9.9 x10^3/uL (4.0-11.0)
[2017-01-15 08:09] LABS: ALBUMIN 2.3 g/dL (3.4-5.0); ALBUMIN/GLOBULIN RATIO 0.7 (1.0-1.7); CALCIUM 8.7 mg/dL (8.5-10.1); CREATININE 1.1 mg/dL (0.7-1.3); GFR 64.2; MAGNESIUM 1.7 mg/dL (1.8-2.4); POTASSIUM 4.6 mmol/L (3.5-5.1); TOTAL BILIRUBIN 1.4 mg/dL (0.2-1.0); TOTAL PROTEIN 5.7 g/dL (6.4-8.2)
[2017-01-15] MEDS: MAGNESIUM OXIDE 400 MG TABLET PO SCH (08:39)
[2017-01-15] MEDS: FUROSEMIDE 40 MG/4 ML VIAL IVP SCH (08:39)
[2017-01-15] MEDS: NICOTINE 21MG PATCH. TD SCH (08:39)
[2017-01-15] MEDS: CITALOPRAM 10 MG TABLET. PO SCH (08:39)
[2017-01-15] MEDS: TAMSULOSIN 0.4 MG CAP.ER.24H. PO SCH (08:40)
[2017-01-15] MEDS: DIGOXIN 125 MCG TABLET PO SCH (08:40)
[2017-01-15] MEDS: PANTOPRAZOLE 40 MG TABLET. PO SCH (08:40)
[2017-01-15] MEDS: APIXABAN 5 MG TABLET. PO SCH ×2 (08:40→20:51)
[2017-01-15] MEDS: METOPROLOL SUCC 24HR ER 25 MG TAB.ER.24H. PO SCH (08:40)
[2017-01-15] MEDS: THIAMINE 100 MG TABLET. PO SCH (08:40)
[2017-01-15] MEDS: POTASSIUM CHLORIDE 20 MEQ TABLET.ER. PO SCH ×2 (08:41→20:51)
--- NOTE | 2017-01-15 08:48 | PDOC ---
PROGRESS NOTES Assessment 1. atrial fibrillation with RVR - rate control improving. continue metoprolol as tolerated. continue digoxin. change amiodarone to oral. Eliquis for stroke prophylaxis. 2. acute on chronic systolic heart failure - improving clinically. continue diuresis with lasix. monitor labs. BNP improving. 3. 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 Patient declined cardiac cath. plan for outpatient MPI. 4. Diabetes mellitus - per PCP 5. hx DVT/PE - s/p IVC filter 6. major depression - per psych/PCP 7. ETOH withdrawal - per PCP, cessation encouraged 8. tobaccoism - cessation encouraged Problems: Subjective breathing better, no chest pain. still edematous but improving. "Not ready to yet, got things to do". Objective tele - atrial fibrillation 109 bpm. Vital Signs Date Time Temp Pulse Resp B/P (MAP) Pulse Ox O2 Delivery O2 Flow Rate FiO2 01/15/17 05:37 97.5 86 17 98/76 (83) 96 Room Air 01/15/17 05:29 2.0 Abdomen: Normal bowel sounds, Soft, No tenderness Heart: Other (irregular rate and rhyhtm without gallops) General: Alert, Oriented X3, Cooperative, No acute distress Lungs: Other (basilar crackles) Neuro: Normal speech Review of Relevant I have reviewed the following items hardy (where applicable) has been applied. Labs Laboratory Tests Test 01/14/17 05:37 01/14/17 07:39 01/14/17 11:43 01/14/17 16:25 White Blood Count 11.4 x10^3/uL (4.0-11.0) Red Blood Count 4.75 x10^6/uL (4.30-5.70) Hemoglobin 15.5 g/dL (13.0-17.5) Hematocrit 47.0 % (39.0-53.0) Mean Corpuscular Volume 99 fL (79-100) Mean Corpuscular Hemoglobin 33 pg (25-35) Mean Corpuscular Hemoglobin Concent 33 g/dL (31-37) Red Cell Distribution Width 14.1 % (11.5-14.5) Platelet Count 173 x10^3/uL (140-400) Neutrophils (%) (Auto) 70 % (31-73) Lymphocytes (%) (Auto) 13 % (24-48) Monocytes (%) (Auto) 16 % (0-9) Eosinophils (%) (Auto) 1 % (0-3) Basophils (%) (Auto) 0 % (0-3) Neutrophils # (Auto) 8.0 x10^3uL (1.8-7.7) Lymphocytes # (Auto) 1.4 x10^3/uL (1.0-4.8) Monocytes # (Auto) 1.9 x10^3/uL (0.0-1.1) Eosinophils # (Auto) 0.1 x10^3/uL (0.0-0.7) Basophils # (Auto) 0.0 x10^3/uL (0.0-0.2) Sodium Level 138 mmol/L (136-145) Potassium Level 4.4 mmol/L (3.5-5.1) Chloride Level 103 mmol/L (98-107) Carbon Dioxide Level 33 mmol/L (21-32) Anion Gap 2 (6-14) Blood Urea Nitrogen 16 mg/dL (8-26) Creatinine 1.2 mg/dL (0.7-1.3) Estimated GFR (Cockcroft-Gault) 58.1 Glucose Level 99 mg/dL (70-99) Calcium Level 8.9 mg/dL (8.5-10.1) Magnesium Level 1.6 mg/dL (1.8-2.4) UG-Ntv-O-Type Natriuretic Peptide 5113 pg/mL (0-449) Glucose (Fingerstick) 96 mg/dL (70-99) 169 mg/dL (70-99) 132 mg/dL (70-99) Test 01/14/17 22:15 01/15/17 05:39 Glucose (Fingerstick) 107 mg/dL (70-99) White Blood Count 9.9 x10^3/uL (4.0-11.0) Red Blood Count 4.59 x10^6/uL (4.30-5.70) Hemoglobin 15.1 g/dL (13.0-17.5) Hematocrit 45.7 % (39.0-53.0) Mean Corpuscular Volume 100 fL (79-100) Mean Corpuscular Hemoglobin 33 pg (25-35) Mean Corpuscular Hemoglobin Concent 33 g/dL (31-37) Red Cell Distribution Width 13.9 % (11.5-14.5) Platelet Count 175 x10^3/uL (140-400) Neutrophils (%) (Auto) 69 % (31-73) Lymphocytes (%) (Auto) 13 % (24-48) Monocytes (%) (Auto) 16 % (0-9) Eosinophils (%) (Auto) 1 % (0-3) Basophils (%) (Auto) 0 % (0-3) Neutrophils # (Auto) 6.8 x10^3uL (1.8-7.7) Lymphocytes # (Auto) 1.3 x10^3/uL (1.0-4.8) Monocytes # (Auto) 1.6 x10^3/uL (0.0-1.1) Eosinophils # (Auto) 0.1 x10^3/uL (0.0-0.7) Basophils # (Auto) 0.0 x10^3/uL (0.0-0.2) Sodium Level 136 mmol/L (136-145) Potassium Level 4.6 mmol/L (3.5-5.1) Chloride Level 101 mmol/L (98-107) Carbon Dioxide Level 32 mmol/L (21-32) Anion Gap 3 (6-14) Blood Urea Nitrogen 14 mg/dL (8-26) Creatinine 1.1 mg/dL (0.7-1.3) Estimated GFR (Cockcroft-Gault) 64.2 BUN/Creatinine Ratio 13 (6-20) Glucose Level 105 mg/dL (70-99) Calcium Level 8.7 mg/dL (8.5-10.1) Magnesium Level 1.7 mg/dL (1.8-2.4) Total Bilirubin 1.4 mg/dL (0.2-1.0) Aspartate Amino Transf (AST/SGOT) 21 U/L (15-37) Alanine Aminotransferase (ALT/SGPT) 31 U/L (16-63) Alkaline Phosphatase 118 U/L (46-116) Total Protein 5.7 g/dL (6.4-8.2) Albumin 2.3 g/dL (3.4-5.0) Albumin/Globulin Ratio 0.7 (1.0-1.7) Microbiology 01/12/17 Urine Culture - Final, Complete 01/12/17 Urine Culture Result 1 (JOSE F) - Final, Complete Medications Current Medications Albuterol/ Ipratropium (Duoneb) 3 ml RTQID NEB Last administered on 01/15/17 05 :28; Start 01/12/17 at 12:00 Lorazepam (Ativan) 4 mg PRN Q1HR PRN PO For CIWA 8-14; Start 01/12/17 at 09:30 ; Stop 01/12/17 at 15:49; Status DC Lorazepam (Ativan) 8 mg PRN Q1HR PRN PO For CIWA 15 or greater; Start 01/12/17 at 09:30; Stop 01/12/17 at 15:49; Status DC Lorazepam (Ativan) 2 mg PRN Q1HR PRN IV For CIWA 8-14 Last administered on 01/12 12:06; Start 01/12/17 at 09:30; Stop 01/12/17 at 15:49; Status DC Lorazepam (Ativan) 4 mg PRN Q1HR PRN IV For CIWA 15 or greater; Start 01/12/17 at 09:30; Stop 01/12/17 at 15:49; Status DC Nicotine (Nicoderm Cq 21mg) 1 patch DAILY TD Last administered on 01/14/17 07: 48; Start 01/12/17 at 09:45 Ondansetron HCl (Zofran) 4 mg PRN Q6HRS PRN IV NAUSEA/VOMITING; Start 01/12/17 at 09:30 Albuterol/ Ipratropium (Duoneb) 3 ml STK-MED ONCE .ROUTE ; Start 01/12/17 at 09: 43; Stop 01/12/17 at 09:44; Status DC Diltiazem HCl (Cardizem) 10 mg 1X ONCE IVP ; Start 01/12/17 at 10:30; Stop at 10:30; Status DC Diltiazem HCl 100 mg/Dextrose 100 ml @ 5 mls/hr CONT PRN IV SEE I/O RECORD Last administered on 01/13/17 11:58; Start 01/12/17 at 10:15; Stop 01/14/17 at 10:45; Status DC Furosemide (Lasix) 40 mg BID92 IVP Last administered on 01/13/17 13:18; Start 01/12/17 at 11:15; Stop 01/13/17 at 16:51; Status DC Potassium Chloride (Klor-Con) 20 meq BID PO Last administered on 01/12/17 19: 57; Start 01/12/17 at 11:15; Stop 01/13/17 at 07:39; Status DC Chlorphenir/ Hydrocodone Polistirex (Tussionex) 5 ml PRN Q12HR PRN PO COUGH Last administered on 01/14/17 20:56; Start 01/12/17 at 12:00 Digoxin (Lanoxin) 500 mcg 1X ONCE IV Last administered on 01/12/17 12:32; Start 01/12/17 at 12:30; Stop 01/12/17 at 12:31; Status DC Apixaban (Eliquis) 5 mg BID PO Last administered on 01/14/17 20:55; Start at 21:00 Digoxin (Lanoxin) 125 mcg DAILY PO Last administered on 01/14/17 07:49; Start 01/13/17 at 09:00 Pioglitazone HCl (Actos) 15 mg DAILY PO ; Start 01/13/17 at 09:00; Stop at 10:46; Status DC Tamsulosin HCl (Flomax) 0.4 mg DAILY PO Last administered on 01/14/17 07:48; Start 01/13/17 at 09:00 Atorvastatin Calcium (Lipitor) 40 mg QHS PO Last administered on 01/14/17 20: 55; Start 01/12/17 at 21:00 Non-Formulary Medication 4 gm PRN QID PRN IH SHORTNESS OF BREATH; Start at 13:30; Stop 01/12/17 at 16:08; Status DC Non-Formulary Medication 100 mg BID PO ; Start 01/12/17 at 21:00; Status UNV Non-Formulary Medication 100 mg BID PO ; Start 01/12/17 at 21:00; Status UNV Losartan Potassium (Cozaar) 100 mg DAILY PO ; Start 01/13/17 at 09:00; Stop at 09:33; Status DC Pantoprazole Sodium (Protonix) 40 mg DAILYAC PO Last administered on 01/14/17 07:49; Start 01/13/17 at 07:30 Furosemide (Lasix) 40 mg DAILY IVP ; Start 01/13/17 at 09:00; Stop 01/13/17 at 09:00; Status DC Fentanyl Citrate (Fentanyl 2ml Vial) 50 mcg PRN Q1HR PRN IV PAIN; Start at 15:15 Fentanyl Citrate (Fentanyl 2ml Vial) 100 mcg PRN Q2HR PRN IV SEVERE PAIN Last administered on 01/13/17 08:56; Start 01/12/17 at 15:15 Chlordiazepoxide (Librium) 50 mg PRN Q1HR PRN PO For CIWA 8-14 Last administered on 01/14/17 07:48; Start 01/12/17 at 15:15 Chlordiazepoxide (Librium) 100 mg PRN Q1HR PRN PO For CIWA 15 or greater; Start 01/12/17 at 15:15 Albuterol/ Ipratropium (Duoneb) 3 ml PRN QID PRN NEB SOA Last administered on 03:13; Start 01/12/17 at 16:00 Olanzapine (ZyPREXA ZYDIS) 2.5 mg PRN Q2HR PRN PO ANXIETY / AGITATION; Start at 18:45 Citalopram Hydrobromide (CeleXA) 10 mg DAILY PO Last administered on 01/14/17 07:49; Start 01/13/17 at 09:00 Potassium Chloride (Klor-Con) 40 meq BID PO Last administered on 01/14/17 20: 55; Start 01/13/17 at 09:00 Losartan Potassium (Cozaar) 50 mg DAILY PO ; Start 01/14/17 at 09:00; Stop 01/14 at 11:20; Status DC Digoxin (Lanoxin) 250 mcg 1X ONCE IV Last administered on 01/13/17 10:26; Start 01/13/17 at 10:45; Stop 01/13/17 at 10:47; Status DC Metoprolol Succinate (Toprol Xl) 25 mg 1X ONCE PO Last administered on 15:25; Start 01/13/17 at 13:20; Stop 01/13/17 at 13:21; Status DC Metoprolol Succinate (Toprol Xl) 25 mg DAILY PO Last administered on 01/14/17 07:50; Start 01/14/17 at 09:00 Trimethoprim/ Sulfamethoxazole (Bactrim Ds) 1 tab BID PO Last administered on 07:48; Start 01/13/17 at 21:00; Stop 01/14/17 at 08:45; Status DC Furosemide (Lasix) 40 mg DAILY08 IVP Last administered on 01/14/17 07:50; Start 01/14/17 at 08:00 Thiamine HCl (Vitamin B-1) 100 mg DAILY PO Last administered on 01/14/17 07:49 ; Start 01/14/17 at 09:00 Magnesium Oxide (Magnesium Oxide) 400 mg DAILY PO Last administered on 07:49; Start 01/14/17 at 09:00 Sodium Chloride 1,000 ml @ 1,000 mls/hr 1X ONCE IV ; Start 01/13/17 at 21:25; Stop 01/13/17 at 22:24; Status DC Sodium Chloride 500 ml @ As Directed STK-MED ONCE .ROUTE Last administered on 01/13/17 21:14; Start 01/13/17 at 21:14; Stop 01/13/17 at 21:18; Status DC Magnesium Sulfate 50 ml @ 25 mls/hr 1X ONCE IV Last administered on 01/14/17 07:48; Start 01/14/17 at 08:00; Stop 01/14/17 at 09:59; Status DC Levofloxacin/ Dextrose 150 ml @ 150 mls/hr DAILY IV Last administered on 09:28; Start 01/14/17 at 09:00; Stop 01/14/17 at 16:28; Status DC Vancomycin HCl (Vanco Per Pharmacy) 1 each PRN DAILY PRN MC SEE COMMENTS Last administered on 01/14/17 10:09; Start 01/14/17 at 08:45 Vancomycin HCl 2 gm/Sodium Chloride 500 ml @ 250 mls/hr 1X ONCE IV Last administered on 01/14/17 10:37; Start 01/14/17 at 11:00; Stop 01/14/17 at 12:59 ; Status DC Vancomycin HCl 1.5 gm/Sodium Chloride 500 ml @ 250 mls/hr Q24H IV ; Start at 11:00 Vancomycin HCl 1 each 1X ONCE MC ; Start 01/16/17 at 10:30; Stop 01/16/17 at 10: 31 Amiodarone HCl 900 mg/Dextrose 518 ml @ 0 mls/hr CONT PRN IV SEE I/O RECORD Last administered on 01/14/17 11:25; Start 01/14/17 at 11:30; Stop 01/14/17 at 11:30; Status DC Amiodarone HCl 150 mg/Dextrose 103 ml @ 618 mls/hr 1X ONCE IVP Last administered on 01/14/17 11:24; Start 01/14/17 at 11:00; Stop 01/14/17 at 11:09 ; Status DC Active Scripts Active Toprol Xl (Metoprolol Succinate) 100 Mg Tab.er.24h 100 Mg PO BID Lanoxin (Digoxin) 125 Mcg Tablet 125 Mcg PO DAILY Reported Eliquis (Apixaban) 5 Mg Tablet 5 Mg PO BID Omeprazole 40 Mg Capsule.dr 40 Mg PO DAILY LAST DOSE; TODAY BEFORE BREAKFAST NEXT DOSE; TOMORROW BEFORE BREAKFAST Furosemide 40 Mg Tablet 40 Mg PO DAILY LAST DOSE; TODAY AM NEXT DOSE; TOMORROW AM Pioglitazone Hcl 15 Mg Tablet 15 Mg PO DAILY LAST DOSE; TODAY WITH BREAKFAST NEXT DOSE; TOMORROW WITH BREAKFAST Atorvastatin Calcium 40 Mg Tablet 40 Mg PO QHS LAST DOSE; LAST NIGHT AT BEDTIME NEXT DOSE; TONIGHT AT BEDTIME Combivent Respimat Inhal (Ipratropium/Albuterol Sulfate) 4 Gm Aer.w.adap 4 Gm IH PRN QID PRN LAST DOSE; NEXT DOSE; TODAY IF NEEDED Vitals/I & O Vital Sign - Last 24 Hours 01/14/17 01/14/17 01/14/17 01/14/17 09:00 09:30 10:15 10:30 Temp 97.4 Pulse 120 88 80 Resp 26 26 B/P (MAP) 99/85 99/85 (90) 83/63 (70) Pulse Ox 94 96 O2 Delivery Nasal Cannula Nasal Cannula O2 Flow Rate 2.0 2.0 01/14/17 01/14/17 01/14/17 01/14/17 10:39 11:24 11:30 12:30 Pulse 110 108 110 Resp 22 20 B/P (MAP) 83/63 (70) 118/69 (85) Pulse Ox 98 96 96 O2 Delivery Nasal Cannula Nasal Cannula Nasal Cannula O2 Flow Rate 2.0 2.0 2.0 01/14/17 01/14/17 01/14/17 01/14/17 13:30 15:22 15:30 16:30 Temp 97.9 Pulse 107 96 95 Resp 24 20 18 B/P (MAP) 83/63 (70) 111/64 (80) 109/63 (78) Pulse Ox 95 98 96 98 O2 Delivery Nasal Cannula Nasal Cannula Nasal Cannula Nasal Cannula O2 Flow Rate 2.0 2.0 2.0 2.0 01/14/17 01/14/17 01/14/17 01/14/17 18:28 19:39 20:00 20:19 Temp 97.6 98.1 Pulse 102 Resp 38 B/P (MAP) 92/75 (81) Pulse Ox 97 96 O2 Delivery Nasal Cannula Nasal Cannula Nasal Cannula O2 Flow Rate 2.0 2.0 2.0 01/14/17 01/14/17 01/14/17 01/15/17 21:00 22:37 23:59 00:02 Pulse 88 99 90 Resp 21 20 20 B/P (MAP) 102/78 (86) 84/66 (72) 79/52 (61) Pulse Ox 98 94 95 O2 Delivery Nasal Cannula Room Air Nasal Cannula Room Air O2 Flow Rate 2.0 2.0 01/15/17 01/15/17 01/15/17 01/15/17 02:58 03:14 05:29 05:37 Temp 97.5 Pulse 91 86 Resp 20 17 B/P (MAP) 96/58 (71) 98/76 (83) Pulse Ox 91 96 95 96 O2 Delivery Room Air Nasal Cannula Nasal Cannula Room Air O2 Flow Rate 2.0 2.0 JUANA BRAVO APRN Jan 15, 2017 08:48
[2017-01-15] MEDS ORDERED: MAGNESIUM SULFATE 1GM 100 ML IV ONE (09:30)
[2017-01-15] MEDS: AMIODARONE HCL 200 MG TABLET PO SCH (09:55)
[2017-01-15] MEDS: VANCOMYCIN 1.5 GM in IV NORMAL SALINE 500ML 500 ML IV SCH (11:16)
--- NOTE | 2017-01-15 16:43 | EKG ---
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
[2017-01-15] MEDS: HYDROcodone/CHLORPHEN POLIS 5 ML SUS.ER.12H PO PRN ×2 (18:18→21:20)
--- NOTE | 2017-01-15 18:23 | PN ---
DATE: 01/14/2017 This note covers elements not covered in my initial note of 01/14/2017. SUBJECTIVE: The patient was seen individually evening of 01/14/2017, discussed with nursing staff, reviewed the chart. Overall, the patient remains depressed, irritable and somewhat labile, still insists on wanting to get back home, wants to continue drinking, made statements, he has no plans to change anything. The patient's daughter had called and attempts are being made to convince him to transfer to care home care. MENTAL STATUS EXAMINATION: The patient was seen in his room. He is somewhat sedated, withdrawn, not very verbally interactive. Speech, often responses monosyllabic. Abstraction fair, computation impaired, language function intact, attention span short. Mood and affect remain somewhat depressed. No active suicidal or homicidal ideation. IMPRESSION: Major depressive disorder, recurrent; history of alcohol abuse, dependence withdrawal; anxiety disorder, unspecified. Rest are unchanged from earlier. PLAN: Continue with daily alcohol detox protocol and supplements as he is taking. We will go ahead and increase the Lexapro to 10 mg a day, continue Xanax p.r.n. augment with Abilify 5 mg a day. Transfer to care home care once he is medically stable. The patient will need placement post his stay at [facility] rather than returning home to live by himself. We have shared this with the daughter. MAN Richard WADDELL MD DR: SÁNCHEZ/kristel JOB#: [id number] / [id number]
--- NOTE | 2017-01-15 18:44 | PDOC ---
Exam Jeison Demential Exam: Jeison Note: Please also refer to the separate dictated note~for this date of service dictated separately.~Patient seen individually. Discussed the patient with Nursing staff reviewed the chart.~Reviewed interim history and current functioning. Reviewed vital signs,~Labs/ Radiology~and current medications noted below. Continue current treatment with the changes noted in the dictated addendum note Assessment: Vital Signs: Vital Signs Date Time Temp Pulse Resp B/P (MAP) Pulse Ox O2 Delivery O2 Flow Rate FiO2 01/15/17 18:34 86 16 87/72 (77) 93 Nasal Cannula 1.0 01/15/17 15:51 97.8 I&O Intake and Output 01/16/17 07:00 Intake Total 1880 ml Output Total 1450 ml Balance 430 ml Intake Oral 1280 ml IV Total 600 ml Output Urine Total 1450 ml Labs: Laboratory Tests Test 01/14/17 22:15 01/15/17 05:39 01/15/17 07:59 Glucose (Fingerstick) 107 mg/dL (70-99) H 104 mg/dL (70-99) H White Blood Count 9.9 x10^3/uL (4.0-11.0) Red Blood Count 4.59 x10^6/uL (4.30-5.70) Hemoglobin 15.1 g/dL (13.0-17.5) Hematocrit 45.7 % (39.0-53.0) Mean Corpuscular Volume 100 fL (79-100) Mean Corpuscular Hemoglobin 33 pg (25-35) Mean Corpuscular Hemoglobin Concent 33 g/dL (31-37) Red Cell Distribution Width 13.9 % (11.5-14.5) Platelet Count 175 x10^3/uL (140-400) Neutrophils (%) (Auto) 69 % (31-73) Lymphocytes (%) (Auto) 13 % (24-48) L Monocytes (%) (Auto) 16 % (0-9) H Eosinophils (%) (Auto) 1 % (0-3) Basophils (%) (Auto) 0 % (0-3) Neutrophils # (Auto) 6.8 x10^3uL (1.8-7.7) Lymphocytes # (Auto) 1.3 x10^3/uL (1.0-4.8) Monocytes # (Auto) 1.6 x10^3/uL (0.0-1.1) H Eosinophils # (Auto) 0.1 x10^3/uL (0.0-0.7) Basophils # (Auto) 0.0 x10^3/uL (0.0-0.2) Sodium Level 136 mmol/L (136-145) Potassium Level 4.6 mmol/L (3.5-5.1) Chloride Level 101 mmol/L (98-107) Carbon Dioxide Level 32 mmol/L (21-32) Anion Gap 3 (6-14) L Blood Urea Nitrogen 14 mg/dL (8-26) Creatinine 1.1 mg/dL (0.7-1.3) Estimated GFR (Cockcroft-Gault) 64.2 BUN/Creatinine Ratio 13 (6-20) Glucose Level 105 mg/dL (70-99) H Calcium Level 8.7 mg/dL (8.5-10.1) Magnesium Level 1.7 mg/dL (1.8-2.4) L Total Bilirubin 1.4 mg/dL (0.2-1.0) H Aspartate Amino Transferase (AST) 21 U/L (15-37) Alanine Aminotransferase (ALT) 31 U/L (16-63) Alkaline Phosphatase 118 U/L (46-116) H Total Protein 5.7 g/dL (6.4-8.2) L Albumin 2.3 g/dL (3.4-5.0) L Albumin/Globulin Ratio 0.7 (1.0-1.7) L Current Medications: Meds: Current Medications Albuterol/ Ipratropium (Duoneb) 3 ml RTQID NEB Last administered on 01/15/17t 15 :39; Start 01/12/17 at 12:00 Lorazepam (Ativan) 4 mg PRN Q1HR PRN PO For CIWA 8-14; Start 01/12/17 at 09:30 ; Stop 01/12/17 at 15:49; Status DC Lorazepam (Ativan) 8 mg PRN Q1HR PRN PO For CIWA 15 or greater; Start 01/12/17 at 09:30; Stop 01/12/17 at 15:49; Status DC Lorazepam (Ativan) 2 mg PRN Q1HR PRN IV For CIWA 8-14 Last administered on 01/12 12:06; Start 01/12/17 at 09:30; Stop 01/12/17 at 15:49; Status DC Lorazepam (Ativan) 4 mg PRN Q1HR PRN IV For CIWA 15 or greater; Start 01/12/17 at 09:30; Stop 01/12/17 at 15:49; Status DC Nicotine (Nicoderm Cq 21mg) 1 patch DAILY TD Last administered on 01/15/17 08: 39; Start 01/12/17 at 09:45 Ondansetron HCl (Zofran) 4 mg PRN Q6HRS PRN IV NAUSEA/VOMITING; Start 01/12/17 at 09:30 Albuterol/ Ipratropium (Duoneb) 3 ml STK-MED ONCE .ROUTE ; Start 01/12/17 at 09: 43; Stop 01/12/17 at 09:44; Status DC Diltiazem HCl (Cardizem) 10 mg 1X ONCE IVP ; Start 01/12/17 at 10:30; Stop at 10:30; Status DC Diltiazem HCl 100 mg/Dextrose 100 ml @ 5 mls/hr CONT PRN IV SEE I/O RECORD Last administered on 01/13/17 11:58; Start 01/12/17 at 10:15; Stop 01/14/17 at 10:45; Status DC Furosemide (Lasix) 40 mg BID92 IVP Last administered on 01/13/17 13:18; Start 01/12/17 at 11:15; Stop 01/13/17 at 16:51; Status DC Potassium Chloride (Klor-Con) 20 meq BID PO Last administered on 01/12/17 19: 57; Start 01/12/17 at 11:15; Stop 01/13/17 at 07:39; Status DC Chlorphenir/ Hydrocodone Polistirex (Tussionex) 5 ml PRN Q12HR PRN PO COUGH Last administered on 01/15/17 18:18; Start 01/12/17 at 12:00 Digoxin (Lanoxin) 500 mcg 1X ONCE IV Last administered on 01/12/17 12:32; Start 01/12/17 at 12:30; Stop 01/12/17 at 12:31; Status DC Apixaban (Eliquis) 5 mg BID PO Last administered on 01/15/17 08:40; Start 01/12 at 21:00 Digoxin (Lanoxin) 125 mcg DAILY PO Last administered on 01/15/17 08:40; Start 01/13/17 at 09:00 Pioglitazone HCl (Actos) 15 mg DAILY PO ; Start 01/13/17 at 09:00; Stop at 10:46; Status DC Tamsulosin HCl (Flomax) 0.4 mg DAILY PO Last administered on 01/15/17 08:40; Start 01/13/17 at 09:00 Atorvastatin Calcium (Lipitor) 40 mg QHS PO Last administered on 01/14/17 20: 55; Start 01/12/17 at 21:00 Non-Formulary Medication 4 gm PRN QID PRN IH SHORTNESS OF BREATH; Start at 13:30; Stop 01/12/17 at 16:08; Status DC Non-Formulary Medication 100 mg BID PO ; Start 01/12/17 at 21:00; Status UNV Non-Formulary Medication 100 mg BID PO ; Start 01/12/17 at 21:00; Status UNV Losartan Potassium (Cozaar) 100 mg DAILY PO ; Start 01/13/17 at 09:00; Stop at 09:33; Status DC Pantoprazole Sodium (Protonix) 40 mg DAILYAC PO Last administered on 01/15/17 08:40; Start 01/13/17 at 07:30 Furosemide (Lasix) 40 mg DAILY IVP ; Start 01/13/17 at 09:00; Stop 01/13/17 at 09:00; Status DC Fentanyl Citrate (Fentanyl 2ml Vial) 50 mcg PRN Q1HR PRN IV PAIN; Start at 15:15 Fentanyl Citrate (Fentanyl 2ml Vial) 100 mcg PRN Q2HR PRN IV SEVERE PAIN Last administered on 01/13/17 08:56; Start 01/12/17 at 15:15 Chlordiazepoxide (Librium) 50 mg PRN Q1HR PRN PO For CIWA 8-14 Last administered on 01/14/17 07:48; Start 01/12/17 at 15:15; Stop 01/15/17 at 16:36 ; Status DC Chlordiazepoxide (Librium) 100 mg PRN Q1HR PRN PO For CIWA 15 or greater; Start 01/12/17 at 15:15; Stop 01/15/17 at 16:36; Status DC Albuterol/ Ipratropium (Duoneb) 3 ml PRN QID PRN NEB SOA Last administered on 03:13; Start 01/12/17 at 16:00 Olanzapine (ZyPREXA ZYDIS) 2.5 mg PRN Q2HR PRN PO ANXIETY / AGITATION; Start at 18:45 Citalopram Hydrobromide (CeleXA) 10 mg DAILY PO Last administered on 01/15/17 08:39; Start 01/13/17 at 09:00 Potassium Chloride (Klor-Con) 40 meq BID PO Last administered on 01/15/17 08:41 ; Start 01/13/17 at 09:00 Losartan Potassium (Cozaar) 50 mg DAILY PO ; Start 01/14/17 at 09:00; Stop 01/14 at 11:20; Status DC Digoxin (Lanoxin) 250 mcg 1X ONCE IV Last administered on 01/13/17 10:26; Start 01/13/17 at 10:45; Stop 01/13/17 at 10:47; Status DC Metoprolol Succinate (Toprol Xl) 25 mg 1X ONCE PO Last administered on 15:25; Start 01/13/17 at 13:20; Stop 01/13/17 at 13:21; Status DC Metoprolol Succinate (Toprol Xl) 25 mg DAILY PO Last administered on 01/15/17 08:40; Start 01/14/17 at 09:00 Trimethoprim/ Sulfamethoxazole (Bactrim Ds) 1 tab BID PO Last administered on 07:48; Start 01/13/17 at 21:00; Stop 01/14/17 at 08:45; Status DC Furosemide (Lasix) 40 mg DAILY08 IVP Last administered on 01/15/17 08:39; Start 01/14/17 at 08:00 Thiamine HCl (Vitamin B-1) 100 mg DAILY PO Last administered on 01/15/17 08:40 ; Start 01/14/17 at 09:00 Magnesium Oxide (Magnesium Oxide) 400 mg DAILY PO Last administered on 08:39; Start 01/14/17 at 09:00 Sodium Chloride 1,000 ml @ 1,000 mls/hr 1X ONCE IV ; Start 01/13/17 at 21:25; Stop 01/13/17 at 22:24; Status DC Sodium Chloride 500 ml @ As Directed STK-MED ONCE .ROUTE Last administered on 01/13/17 21:14; Start 01/13/17 at 21:14; Stop 01/13/17 at 21:18; Status DC Magnesium Sulfate 50 ml @ 25 mls/hr 1X ONCE IV Last administered on 01/14/17 07:48; Start 01/14/17 at 08:00; Stop 01/14/17 at 09:59; Status DC Levofloxacin/ Dextrose 150 ml @ 150 mls/hr DAILY IV Last administered on 09:28; Start 01/14/17 at 09:00; Stop 01/14/17 at 16:28; Status DC Vancomycin HCl (Vanco Per Pharmacy) 1 each PRN DAILY PRN MC SEE COMMENTS Last administered on 01/14/17 10:09; Start 01/14/17 at 08:45 Vancomycin HCl 2 gm/Sodium Chloride 500 ml @ 250 mls/hr 1X ONCE IV Last administered on 01/14/17 10:37; Start 01/14/17 at 11:00; Stop 01/14/17 at 12:59 ; Status DC Vancomycin HCl 1.5 gm/Sodium Chloride 500 ml @ 250 mls/hr Q24H IV Last administered on 01/15/17 11:16; Start 01/15/17 at 11:00 Vancomycin HCl 1 each 1X ONCE MC ; Start 01/16/17 at 10:30; Stop 01/16/17 at 10: 31 Amiodarone HCl 900 mg/Dextrose 518 ml @ 0 mls/hr CONT PRN IV SEE I/O RECORD Last administered on 01/14/17 11:25; Start 01/14/17 at 11:30; Stop 01/14/17 at 11:30; Status DC Amiodarone HCl 150 mg/Dextrose 103 ml @ 618 mls/hr 1X ONCE IVP Last administered on 01/14/17 11:24; Start 01/14/17 at 11:00; Stop 01/14/17 at 11:09 ; Status DC Amiodarone HCl (Cordarone) 200 mg DAILY PO Last administered on 01/15/17 09:55 ; Start 01/15/17 at 09:30 Magnesium Sulfate/ Dextrose 100 ml @ 100 mls/hr 1X ONCE IV Last administered on 01/15/17 09:55; Start 01/15/17 at 09:30; Stop 01/15/17 at 10:30; Status DC Active Scripts Active Toprol Xl (Metoprolol Succinate) 100 Mg Tab.er.24h 100 Mg PO BID Lanoxin (Digoxin) 125 Mcg Tablet 125 Mcg PO DAILY Reported Eliquis (Apixaban) 5 Mg Tablet 5 Mg PO BID Omeprazole 40 Mg Capsule.dr 40 Mg PO DAILY LAST DOSE; TODAY BEFORE BREAKFAST NEXT DOSE; TOMORROW BEFORE BREAKFAST Furosemide 40 Mg Tablet 40 Mg PO DAILY LAST DOSE; TODAY AM NEXT DOSE; TOMORROW AM Pioglitazone Hcl 15 Mg Tablet 15 Mg PO DAILY LAST DOSE; TODAY WITH BREAKFAST NEXT DOSE; TOMORROW WITH BREAKFAST Atorvastatin Calcium 40 Mg Tablet 40 Mg PO QHS LAST DOSE; LAST NIGHT AT BEDTIME NEXT DOSE; TONIGHT AT BEDTIME Combivent Respimat Inhal (Ipratropium/Albuterol Sulfate) 4 Gm Aer.w.adap 4 Gm IH PRN QID PRN LAST DOSE; NEXT DOSE; TODAY IF NEEDED Diagnosis: Problems: (1) Impulse control disorder (2) Major depressive disorder, recurrent episode (3) Alcohol withdrawal syndrome (4) CVA (cerebrovascular accident) RADHIKA WADDELL MD Jan 15, 2017 18:44
[2017-01-15] MEDS: ATORVASTATIN CALCIUM 20 MG TABLET PO SCH (20:51)
[2017-01-15] MEDS: ARIPiprazole 5 MG TABLET PO SCH (20:52)
--- NOTE | 2017-01-15 23:21 | PN ---
DATE: SUBJECTIVE: The patient in with chest pain, shortness of breath, atrial fibrillation with RVR. The patient is on amiodarone drip and consequently is having being monitored carefully. The patient had positive D-dimer, but also has an IVC filter, so that should help prevent that. The patient is over nicotine and seems to be recovering nicely from his alcohol withdrawal situation as well. He says he is feeling much better overall. OBJECTIVE: VITAL SIGNS: The patient's blood pressure approximately 90/70, respiratory 18, pulse 86-120, afebrile, 2 liters nasal cannula. GENERAL: The patient is alert and oriented. The patient is speaking much better than he has. LUNGS: Diminished throughout, poor movement of air, but clear than they have been. CARDIOVASCULAR: Irregularly irregular rhythm. ABDOMEN: Soft, nontender, no rebound or guarding, positive bowel sounds, no hepatosplenomegaly. EXTREMITIES: No clubbing, cyanosis or edema. NEUROLOGIC: Intact. LABORATORY DATA: White count down to 9, hemoglobin and hematocrit stable. Electrolytes are basically stable as is his renal function. The patient overall making excellent progress throughout. He refuses to get heart catheterization, but will take LifeVest and make further evaluation there. Otherwise, magnesium still slightly low at 1.7. IMPRESSION: Therefore, the patient's acute on top of chronic diastolic heart failure, atrial fibrillation with rapid ventricular response, leukocytosis, hypotension, hematuria, type 2 diabetes, alcoholism, tobacco abuse, mild dementia, major depression disorder, anxiety disorder, ejection fraction of 20-30%. PLAN: Continue on the amiodarone until Cardiology transfer him over to some other medication situation. WILL GOMEZ MD DR: LAWANDA/kristel JOB#: [id number] / [id number]
[2017-01-16] VITALS (11 sets, daily range): BP systolic 93–134; BP diastolic 59–78
[2017-01-16] MEDS: IPRATRPIUM/ALBUTEROL 0.5/2.5MG 3 ML NEBU. NEB SCH ×4 (05:46→21:26)
[2017-01-16] MEDS: PANTOPRAZOLE 40 MG TABLET. PO SCH (08:43)
[2017-01-16] MEDS: FUROSEMIDE 40 MG/4 ML VIAL IVP SCH (08:43)
[2017-01-16] MEDS: CITALOPRAM 10 MG TABLET. PO SCH (08:44)
[2017-01-16] MEDS: ARIPiprazole 5 MG TABLET PO SCH (08:44)
[2017-01-16] MEDS: APIXABAN 5 MG TABLET. PO SCH ×2 (08:45→20:16)
[2017-01-16] MEDS: TAMSULOSIN 0.4 MG CAP.ER.24H. PO SCH (08:45)
[2017-01-16] MEDS: AMIODARONE HCL 200 MG TABLET PO SCH (08:45)
[2017-01-16] MEDS: POTASSIUM CHLORIDE 20 MEQ TABLET.ER. PO SCH ×2 (08:45→20:16)
[2017-01-16] MEDS: METOPROLOL SUCC 24HR ER 25 MG TAB.ER.24H. PO SCH (08:46)
[2017-01-16] MEDS: MAGNESIUM OXIDE 400 MG TABLET PO SCH (08:46)
[2017-01-16] MEDS: NICOTINE 21MG PATCH. TD SCH (08:47)
[2017-01-16] MEDS: THIAMINE 100 MG TABLET. PO SCH (08:47)
[2017-01-16] MEDS: DIGOXIN 125 MCG TABLET PO SCH (08:50)
[2017-01-16 10:55] LABS: CALCIUM 8.9 mg/dL (8.5-10.1); CREATININE 1.1 mg/dL (0.7-1.3); GFR 64.2
[2017-01-16 11:00] LABS: VANC TR 10.1 mcg/mL (10.0-20.0)
[2017-01-16] MEDS: VANCOMYCIN PER PHARMACY MC PRN (11:59)
[2017-01-16] MEDS: VANCOMYCIN 1.5 GM in IV NORMAL SALINE 500ML 500 ML IV SCH (12:04)
[2017-01-16] MEDS: HYDROcodone/CHLORPHEN POLIS 5 ML SUS.ER.12H PO PRN (12:04)
[2017-01-16] MEDS: BENZOCAINE/MENTHOL LOZENGE 16'S BOX. PO PRN (13:15)
--- NOTE | 2017-01-16 13:18 | PDOC ---
PROGRESS NOTES Assessment 1. Atrial fibrillation with RVR -heart rate is relatively well controlled. continue digoxin and metoprolol for rate control, amiodarone for antiarrhythmic therapy and Eliquis for stroke prophylaxis. 2. Acute on chronic systolic heart failure - improving clinically. continue diuresis with lasix. 3. 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 Patient declined cardiac cath. plan for outpatient MPI. 4. Diabetes mellitus - per PCP 5. hx DVT/PE - s/p IVC filter 6. major depression - per psych/PCP 7. ETOH withdrawal - per PCP, cessation encouraged 8. tobaccoism - cessation encouraged Problems: Objective Vital Signs Date Time Temp Pulse Resp B/P (MAP) Pulse Ox O2 Delivery O2 Flow Rate FiO2 01/16/17 12:00 Nasal Cannula 2.0 01/16/17 11:45 98.1 98 18 100/69 (79) 94 Intake and Output 01/17/17 07:00 Intake Total 480 ml Balance 480 ml Intake Oral 480 ml Abdomen: Soft, No tenderness Heart: Other (heart rate irregular) Extremities: Other (1-2+ pitting edema) General: No acute distress HEENT: Atraumatic, PERRLA Lungs: Other (scattered crepitations bilaterally) Neck: Supple Psych/Mental Status: Mood NL Review of Relevant I have reviewed the following items hardy (where applicable) has been applied. Labs Laboratory Tests Test 01/14/17 16:25 01/14/17 22:15 01/15/17 05:39 01/15/17 07:59 Glucose (Fingerstick) 132 mg/dL (70-99) 107 mg/dL (70-99) 104 mg/dL (70-99) White Blood Count 9.9 x10^3/uL (4.0-11.0) Red Blood Count 4.59 x10^6/uL (4.30-5.70) Hemoglobin 15.1 g/dL (13.0-17.5) Hematocrit 45.7 % (39.0-53.0) Mean Corpuscular Volume 100 fL (79-100) Mean Corpuscular Hemoglobin 33 pg (25-35) Mean Corpuscular Hemoglobin Concent 33 g/dL (31-37) Red Cell Distribution Width 13.9 % (11.5-14.5) Platelet Count 175 x10^3/uL (140-400) Neutrophils (%) (Auto) 69 % (31-73) Lymphocytes (%) (Auto) 13 % (24-48) Monocytes (%) (Auto) 16 % (0-9) Eosinophils (%) (Auto) 1 % (0-3) Basophils (%) (Auto) 0 % (0-3) Neutrophils # (Auto) 6.8 x10^3uL (1.8-7.7) Lymphocytes # (Auto) 1.3 x10^3/uL (1.0-4.8) Monocytes # (Auto) 1.6 x10^3/uL (0.0-1.1) Eosinophils # (Auto) 0.1 x10^3/uL (0.0-0.7) Basophils # (Auto) 0.0 x10^3/uL (0.0-0.2) Sodium Level 136 mmol/L (136-145) Potassium Level 4.6 mmol/L (3.5-5.1) Chloride Level 101 mmol/L (98-107) Carbon Dioxide Level 32 mmol/L (21-32) Anion Gap 3 (6-14) Blood Urea Nitrogen 14 mg/dL (8-26) Creatinine 1.1 mg/dL (0.7-1.3) Estimated GFR (Cockcroft-Gault) 64.2 BUN/Creatinine Ratio 13 (6-20) Glucose Level 105 mg/dL (70-99) Calcium Level 8.7 mg/dL (8.5-10.1) Magnesium Level 1.7 mg/dL (1.8-2.4) Total Bilirubin 1.4 mg/dL (0.2-1.0) Aspartate Amino Transf (AST/SGOT) 21 U/L (15-37) Alanine Aminotransferase (ALT/SGPT) 31 U/L (16-63) Alkaline Phosphatase 118 U/L (46-116) Total Protein 5.7 g/dL (6.4-8.2) Albumin 2.3 g/dL (3.4-5.0) Albumin/Globulin Ratio 0.7 (1.0-1.7) Test 01/16/17 10:30 Sodium Level 136 mmol/L (136-145) Potassium Level 5.0 mmol/L (3.5-5.1) Chloride Level 101 mmol/L (98-107) Carbon Dioxide Level 32 mmol/L (21-32) Anion Gap 3 (6-14) Blood Urea Nitrogen 15 mg/dL (8-26) Creatinine 1.1 mg/dL (0.7-1.3) Estimated GFR (Cockcroft-Gault) 64.2 Glucose Level 132 mg/dL (70-99) Calcium Level 8.9 mg/dL (8.5-10.1) Vancomycin Level Trough 10.1 mcg/mL (10.0-20.0) Vancomycin Last Dose Date 01/15/2017 Vancomycin Last Dose Time 1100 Microbiology 01/15/17 Urine Culture - Preliminary, Resulted 01/15/17 Urine Culture Result 1 (JOSE F) - Preliminary, Resulted Medications Current Medications Albuterol/ Ipratropium (Duoneb) 3 ml RTQID NEB Last administered on 01/16/17 11 :27; Start 01/12/17 at 12:00 Lorazepam (Ativan) 4 mg PRN Q1HR PRN PO For CIWA 8-14; Start 01/12/17 at 09:30 ; Stop 01/12/17 at 15:49; Status DC Lorazepam (Ativan) 8 mg PRN Q1HR PRN PO For CIWA 15 or greater; Start 01/12/17 at 09:30; Stop 01/12/17 at 15:49; Status DC Lorazepam (Ativan) 2 mg PRN Q1HR PRN IV For CIWA 8-14 Last administered on 01/12 12:06; Start 01/12/17 at 09:30; Stop 01/12/17 at 15:49; Status DC Lorazepam (Ativan) 4 mg PRN Q1HR PRN IV For CIWA 15 or greater; Start 01/12/17 at 09:30; Stop 01/12/17 at 15:49; Status DC Nicotine (Nicoderm Cq 21mg) 1 patch DAILY TD Last administered on 01/16/17 08: 47; Start 01/12/17 at 09:45 Ondansetron HCl (Zofran) 4 mg PRN Q6HRS PRN IV NAUSEA/VOMITING; Start 01/12/17 at 09:30 Albuterol/ Ipratropium (Duoneb) 3 ml STK-MED ONCE .ROUTE ; Start 01/12/17 at 09: 43; Stop 01/12/17 at 09:44; Status DC Diltiazem HCl (Cardizem) 10 mg 1X ONCE IVP ; Start 01/12/17 at 10:30; Stop at 10:30; Status DC Diltiazem HCl 100 mg/Dextrose 100 ml @ 5 mls/hr CONT PRN IV SEE I/O RECORD Last administered on 01/13/17 11:58; Start 01/12/17 at 10:15; Stop 01/14/17 at 10:45; Status DC Furosemide (Lasix) 40 mg BID92 IVP Last administered on 01/13/17 13:18; Start 01/12/17 at 11:15; Stop 01/13/17 at 16:51; Status DC Potassium Chloride (Klor-Con) 20 meq BID PO Last administered on 01/12/17 19: 57; Start 01/12/17 at 11:15; Stop 01/13/17 at 07:39; Status DC Chlorphenir/ Hydrocodone Polistirex (Tussionex) 5 ml PRN Q12HR PRN PO COUGH Last administered on 01/16/17 12:04; Start 01/12/17 at 12:00 Digoxin (Lanoxin) 500 mcg 1X ONCE IV Last administered on 01/12/17 12:32; Start 01/12/17 at 12:30; Stop 01/12/17 at 12:31; Status DC Apixaban (Eliquis) 5 mg BID PO Last administered on 01/16/17 08:45; Start 01/12 at 21:00 Digoxin (Lanoxin) 125 mcg DAILY PO Last administered on 01/16/17 08:50; Start 01/13/17 at 09:00 Pioglitazone HCl (Actos) 15 mg DAILY PO ; Start 01/13/17 at 09:00; Stop at 10:46; Status DC Tamsulosin HCl (Flomax) 0.4 mg DAILY PO Last administered on 01/16/17 08:45; Start 01/13/17 at 09:00 Atorvastatin Calcium (Lipitor) 40 mg QHS PO Last administered on 01/15/17 20:51 ; Start 01/12/17 at 21:00 Non-Formulary Medication 4 gm PRN QID PRN IH SHORTNESS OF BREATH; Start at 13:30; Stop 01/12/17 at 16:08; Status DC Non-Formulary Medication 100 mg BID PO ; Start 01/12/17 at 21:00; Status UNV Non-Formulary Medication 100 mg BID PO ; Start 01/12/17 at 21:00; Status UNV Losartan Potassium (Cozaar) 100 mg DAILY PO ; Start 01/13/17 at 09:00; Stop at 09:33; Status DC Pantoprazole Sodium (Protonix) 40 mg DAILYAC PO Last administered on 01/16/17 08:43; Start 01/13/17 at 07:30 Furosemide (Lasix) 40 mg DAILY IVP ; Start 01/13/17 at 09:00; Stop 01/13/17 at 09:00; Status DC Fentanyl Citrate (Fentanyl 2ml Vial) 50 mcg PRN Q1HR PRN IV PAIN; Start at 15:15 Fentanyl Citrate (Fentanyl 2ml Vial) 100 mcg PRN Q2HR PRN IV SEVERE PAIN Last administered on 01/13/17 08:56; Start 01/12/17 at 15:15 Chlordiazepoxide (Librium) 50 mg PRN Q1HR PRN PO For CIWA 8-14 Last administered on 01/14/17 07:48; Start 01/12/17 at 15:15; Stop 01/15/17 at 16:36 ; Status DC Chlordiazepoxide (Librium) 100 mg PRN Q1HR PRN PO For CIWA 15 or greater; Start 01/12/17 at 15:15; Stop 01/15/17 at 16:36; Status DC Albuterol/ Ipratropium (Duoneb) 3 ml PRN QID PRN NEB SOA Last administered on 03:13; Start 01/12/17 at 16:00 Olanzapine (ZyPREXA ZYDIS) 2.5 mg PRN Q2HR PRN PO ANXIETY / AGITATION; Start at 18:45 Citalopram Hydrobromide (CeleXA) 10 mg DAILY PO Last administered on 01/16/17 08:44; Start 01/13/17 at 09:00; Stop 01/16/17 at 11:56; Status DC Potassium Chloride (Klor-Con) 40 meq BID PO Last administered on 01/16/17 08:45 ; Start 01/13/17 at 09:00 Losartan Potassium (Cozaar) 50 mg DAILY PO ; Start 01/14/17 at 09:00; Stop 01/14 at 11:20; Status DC Digoxin (Lanoxin) 250 mcg 1X ONCE IV Last administered on 01/13/17 10:26; Start 01/13/17 at 10:45; Stop 01/13/17 at 10:47; Status DC Metoprolol Succinate (Toprol Xl) 25 mg 1X ONCE PO Last administered on 15:25; Start 01/13/17 at 13:20; Stop 01/13/17 at 13:21; Status DC Metoprolol Succinate (Toprol Xl) 25 mg DAILY PO Last administered on 01/16/17 08:46; Start 01/14/17 at 09:00 Trimethoprim/ Sulfamethoxazole (Bactrim Ds) 1 tab BID PO Last administered on 07:48; Start 01/13/17 at 21:00; Stop 01/14/17 at 08:45; Status DC Furosemide (Lasix) 40 mg DAILY08 IVP Last administered on 01/16/17 08:43; Start 01/14/17 at 08:00 Thiamine HCl (Vitamin B-1) 100 mg DAILY PO Last administered on 01/16/17 08:47 ; Start 01/14/17 at 09:00 Magnesium Oxide (Magnesium Oxide) 400 mg DAILY PO Last administered on 08:46; Start 01/14/17 at 09:00 Sodium Chloride 1,000 ml @ 1,000 mls/hr 1X ONCE IV ; Start 01/13/17 at 21:25; Stop 01/13/17 at 22:24; Status DC Sodium Chloride 500 ml @ As Directed STK-MED ONCE .ROUTE Last administered on 01/13/17 21:14; Start 01/13/17 at 21:14; Stop 01/13/17 at 21:18; Status DC Magnesium Sulfate 50 ml @ 25 mls/hr 1X ONCE IV Last administered on 01/14/17 07:48; Start 01/14/17 at 08:00; Stop 01/14/17 at 09:59; Status DC Levofloxacin/ Dextrose 150 ml @ 150 mls/hr DAILY IV Last administered on 09:28; Start 01/14/17 at 09:00; Stop 01/14/17 at 16:28; Status DC Vancomycin HCl (Vanco Per Pharmacy) 1 each PRN DAILY PRN MC SEE COMMENTS Last administered on 01/16/17 11:59; Start 01/14/17 at 08:45 Vancomycin HCl 2 gm/Sodium Chloride 500 ml @ 250 mls/hr 1X ONCE IV Last administered on 01/14/17 10:37; Start 01/14/17 at 11:00; Stop 01/14/17 at 12:59 ; Status DC Vancomycin HCl 1.5 gm/Sodium Chloride 500 ml @ 250 mls/hr Q24H IV Last administered on 01/16/17 12:04; Start 01/15/17 at 11:00 Vancomycin HCl 1 each 1X ONCE MC Last administered on 01/16/17 10:30; Start at 10:30; Stop 01/16/17 at 10:31; Status DC Amiodarone HCl 900 mg/Dextrose 518 ml @ 0 mls/hr CONT PRN IV SEE I/O RECORD Last administered on 01/14/17 11:25; Start 01/14/17 at 11:30; Stop 01/14/17 at 11:30; Status DC Amiodarone HCl 150 mg/Dextrose 103 ml @ 618 mls/hr 1X ONCE IVP Last administered on 01/14/17 11:24; Start 01/14/17 at 11:00; Stop 01/14/17 at 11:09 ; Status DC Amiodarone HCl (Cordarone) 200 mg DAILY PO Last administered on 01/16/17 08:45 ; Start 01/15/17 at 09:30 Magnesium Sulfate/ Dextrose 100 ml @ 100 mls/hr 1X ONCE IV Last administered on 01/15/17 09:55; Start 01/15/17 at 09:30; Stop 01/15/17 at 10:30; Status DC Aripiprazole (Abilify) 5 mg DAILY PO Last administered on 01/16/17 08:44; Start 01/15/17 at 21:00 Citalopram Hydrobromide (CeleXA) 20 mg DAILY PO ; Start 01/17/17 at 09:00 Vancomycin HCl 1 each 1X ONCE MC ; Start 01/19/17 at 10:30; Stop 01/19/17 at 10: 31 Throat Lozenges (Cepacol Sore Throat Lozenge) 1 annabella PRN Q2HR PRN PO SORE THROAT ; Start 01/16/17 at 13:15 Active Scripts Active Toprol Xl (Metoprolol Succinate) 100 Mg Tab.er.24h 100 Mg PO BID Lanoxin (Digoxin) 125 Mcg Tablet 125 Mcg PO DAILY Reported Eliquis (Apixaban) 5 Mg Tablet 5 Mg PO BID Omeprazole 40 Mg Capsule.dr 40 Mg PO DAILY LAST DOSE; TODAY BEFORE BREAKFAST NEXT DOSE; TOMORROW BEFORE BREAKFAST Furosemide 40 Mg Tablet 40 Mg PO DAILY LAST DOSE; TODAY AM NEXT DOSE; TOMORROW AM Pioglitazone Hcl 15 Mg Tablet 15 Mg PO DAILY LAST DOSE; TODAY WITH BREAKFAST NEXT DOSE; TOMORROW WITH BREAKFAST Atorvastatin Calcium 40 Mg Tablet 40 Mg PO QHS LAST DOSE; LAST NIGHT AT BEDTIME NEXT DOSE; TONIGHT AT BEDTIME Combivent Respimat Inhal (Ipratropium/Albuterol Sulfate) 4 Gm Aer.w.adap 4 Gm IH PRN QID PRN LAST DOSE; NEXT DOSE; TODAY IF NEEDED Vitals/I & O Vital Sign - Last 24 Hours 01/15/17 01/15/17 01/15/17 01/15/17 14:27 14:41 15:39 15:51 Temp 97.8 Pulse 94 90 Resp 20 23 B/P (MAP) 93/65 (74) 82/71 (75) Pulse Ox 95 95 94 O2 Delivery Room Air Room Air Room Air 01/15/17 01/15/17 01/15/17 01/15/17 17:07 18:34 19:43 19:50 Temp 98.4 Pulse 99 86 68 Resp 39 16 16 B/P (MAP) 99/73 (82) 87/72 (77) 76/55 (62) Pulse Ox 92 93 91 O2 Delivery Room Air Nasal Cannula Room Air Nasal Cannula O2 Flow Rate 1.0 2.0 01/15/17 01/15/17 01/15/17 01/15/17 21:00 21:25 22:00 23:00 Pulse 78 78 80 Resp 16 20 16 B/P (MAP) 78/68 (71) 91/72 (78) 78/61 (67) Pulse Ox 94 96 95 95 O2 Delivery Nasal Cannula Nasal Cannula Nasal Cannula Nasal Cannula O2 Flow Rate 1.0 1.0 1.0 1.0 01/15/17 01/16/17 01/16/17 01/16/17 23:45 00:01 03:00 03:00 Pulse 88 84 Resp 16 16 B/P (MAP) 93/70 (78) 107/74 (85) Pulse Ox 95 93 O2 Delivery Nasal Cannula Nasal Cannula Nasal Cannula Nasal Cannula O2 Flow Rate 2.0 1.0 2.0 1.0 01/16/17 01/16/17 01/16/17 01/16/17 04:00 05:46 06:00 07:41 Pulse 84 92 92 Resp 20 18 18 B/P (MAP) 103/76 (85) 101/65 (77) 108/76 (87) Pulse Ox 92 98 95 95 O2 Delivery Nasal Cannula Nasal Cannula Nasal Cannula Nasal Cannula O2 Flow Rate 1.0 1.0 1.0 1.0 01/16/17 01/16/17 01/16/17 01/16/17 08:00 08:30 08:30 08:45 Pulse 100 100 100 Resp 18 18 B/P (MAP) 134/78 (96) 134/78 (96) 134/78 Pulse Ox 95 95 O2 Delivery Nasal Cannula Nasal Cannula Nasal Cannula O2 Flow Rate 2.0 1.0 1.0 01/16/17 01/16/17 01/16/17 01/16/17 08:46 08:50 10:30 11:27 Pulse 100 100 91 Resp 18 B/P (MAP) 134/78 134/78 98/72 (81) Pulse Ox 95 99 O2 Delivery Nasal Cannula Nasal Cannula O2 Flow Rate 1.0 1.0 01/16/17 01/16/17 11:45 12:00 Temp 98.1 Pulse 98 Resp 18 B/P (MAP) 100/69 (79) Pulse Ox 94 O2 Delivery Nasal Cannula Nasal Cannula O2 Flow Rate 1.0 2.0 Intake and Output 01/16/17 01/16/17 01/17/17 15:00 23:00 07:00 Intake Total 480 ml Balance 480 ml JOSE DE JESUS OSPINA MD Jan 16, 2017 13:18
[2017-01-16] MEDS: ATORVASTATIN CALCIUM 20 MG TABLET PO SCH (20:14)
--- NOTE | 2017-01-16 23:13 | PDOC ---
Exam Jeison Demential Exam: Jeison Note: Please also refer to the separate dictated note~for this date of service dictated separately.~Patient seen individually. Discussed the patient with Nursing staff reviewed the chart.~Reviewed interim history and current functioning. Reviewed vital signs,~Labs/ Radiology~and current medications noted below. Continue current treatment with the changes noted in the dictated addendum note Assessment: Vital Signs: Vital Signs Date Time Temp Pulse Resp B/P (MAP) Pulse Ox O2 Delivery O2 Flow Rate FiO2 01/16/17 21:27 94 Room Air 01/16/17 19:41 97.4 73 20 104/72 (83) 2.0 I&O Intake and Output 01/17/17 06:59 Intake Total 1160 ml Output Total 500 ml Balance 660 ml Intake Oral 660 ml IV Total 500 ml Output Urine Total 500 ml Labs: Laboratory Tests Test 01/16/17 10:30 Sodium Level 136 mmol/L (136-145) Potassium Level 5.0 mmol/L (3.5-5.1) Chloride Level 101 mmol/L (98-107) Carbon Dioxide Level 32 mmol/L (21-32) Anion Gap 3 (6-14) L Blood Urea Nitrogen 15 mg/dL (8-26) Creatinine 1.1 mg/dL (0.7-1.3) Estimated GFR (Cockcroft-Gault) 64.2 Glucose Level 132 mg/dL (70-99) H Calcium Level 8.9 mg/dL (8.5-10.1) Vancomycin Level Trough 10.1 mcg/mL (10.0-20.0) Vancomycin Last Dose Date 01/15/2017 Vancomycin Last Dose Time 1100 Current Medications: Meds: Current Medications Albuterol/ Ipratropium (Duoneb) 3 ml RTQID NEB Last administered on 01/16/17t 21 :26; Start 01/12/17 at 12:00 Lorazepam (Ativan) 4 mg PRN Q1HR PRN PO For CIWA 8-14; Start 01/12/17 at 09:30 ; Stop 01/12/17 at 15:49; Status DC Lorazepam (Ativan) 8 mg PRN Q1HR PRN PO For CIWA 15 or greater; Start 01/12/17 at 09:30; Stop 01/12/17 at 15:49; Status DC Lorazepam (Ativan) 2 mg PRN Q1HR PRN IV For CIWA 8-14 Last administered on 01/12 12:06; Start 01/12/17 at 09:30; Stop 01/12/17 at 15:49; Status DC Lorazepam (Ativan) 4 mg PRN Q1HR PRN IV For CIWA 15 or greater; Start 01/12/17 at 09:30; Stop 01/12/17 at 15:49; Status DC Nicotine (Nicoderm Cq 21mg) 1 patch DAILY TD Last administered on 01/16/17 08: 47; Start 01/12/17 at 09:45 Ondansetron HCl (Zofran) 4 mg PRN Q6HRS PRN IV NAUSEA/VOMITING; Start 01/12/17 at 09:30 Albuterol/ Ipratropium (Duoneb) 3 ml STK-MED ONCE .ROUTE ; Start 01/12/17 at 09: 43; Stop 01/12/17 at 09:44; Status DC Diltiazem HCl (Cardizem) 10 mg 1X ONCE IVP ; Start 01/12/17 at 10:30; Stop at 10:30; Status DC Diltiazem HCl 100 mg/Dextrose 100 ml @ 5 mls/hr CONT PRN IV SEE I/O RECORD Last administered on 01/13/17 11:58; Start 01/12/17 at 10:15; Stop 01/14/17 at 10:45; Status DC Furosemide (Lasix) 40 mg BID92 IVP Last administered on 01/13/17 13:18; Start 01/12/17 at 11:15; Stop 01/13/17 at 16:51; Status DC Potassium Chloride (Klor-Con) 20 meq BID PO Last administered on 01/12/17 19: 57; Start 01/12/17 at 11:15; Stop 01/13/17 at 07:39; Status DC Chlorphenir/ Hydrocodone Polistirex (Tussionex) 5 ml PRN Q12HR PRN PO COUGH Last administered on 01/16/17 12:04; Start 01/12/17 at 12:00 Digoxin (Lanoxin) 500 mcg 1X ONCE IV Last administered on 01/12/17 12:32; Start 01/12/17 at 12:30; Stop 01/12/17 at 12:31; Status DC Apixaban (Eliquis) 5 mg BID PO Last administered on 01/16/17 20:16; Start 01/12 at 21:00 Digoxin (Lanoxin) 125 mcg DAILY PO Last administered on 01/16/17 08:50; Start 01/13/17 at 09:00 Pioglitazone HCl (Actos) 15 mg DAILY PO ; Start 01/13/17 at 09:00; Stop at 10:46; Status DC Tamsulosin HCl (Flomax) 0.4 mg DAILY PO Last administered on 01/16/17 08:45; Start 01/13/17 at 09:00 Atorvastatin Calcium (Lipitor) 40 mg QHS PO Last administered on 01/16/17 20:14 ; Start 01/12/17 at 21:00 Non-Formulary Medication 4 gm PRN QID PRN IH SHORTNESS OF BREATH; Start at 13:30; Stop 01/12/17 at 16:08; Status DC Non-Formulary Medication 100 mg BID PO ; Start 01/12/17 at 21:00; Status UNV Non-Formulary Medication 100 mg BID PO ; Start 01/12/17 at 21:00; Status UNV Losartan Potassium (Cozaar) 100 mg DAILY PO ; Start 01/13/17 at 09:00; Stop at 09:33; Status DC Pantoprazole Sodium (Protonix) 40 mg DAILYAC PO Last administered on 01/16/17 08:43; Start 01/13/17 at 07:30 Furosemide (Lasix) 40 mg DAILY IVP ; Start 01/13/17 at 09:00; Stop 01/13/17 at 09:00; Status DC Fentanyl Citrate (Fentanyl 2ml Vial) 50 mcg PRN Q1HR PRN IV PAIN; Start at 15:15 Fentanyl Citrate (Fentanyl 2ml Vial) 100 mcg PRN Q2HR PRN IV SEVERE PAIN Last administered on 01/13/17 08:56; Start 01/12/17 at 15:15 Chlordiazepoxide (Librium) 50 mg PRN Q1HR PRN PO For CIWA 8-14 Last administered on 01/14/17 07:48; Start 01/12/17 at 15:15; Stop 01/15/17 at 16:36 ; Status DC Chlordiazepoxide (Librium) 100 mg PRN Q1HR PRN PO For CIWA 15 or greater; Start 01/12/17 at 15:15; Stop 01/15/17 at 16:36; Status DC Albuterol/ Ipratropium (Duoneb) 3 ml PRN QID PRN NEB SOA Last administered on 03:13; Start 01/12/17 at 16:00 Olanzapine (ZyPREXA ZYDIS) 2.5 mg PRN Q2HR PRN PO ANXIETY / AGITATION; Start at 18:45 Citalopram Hydrobromide (CeleXA) 10 mg DAILY PO Last administered on 01/16/17 08:44; Start 01/13/17 at 09:00; Stop 01/16/17 at 11:56; Status DC Potassium Chloride (Klor-Con) 40 meq BID PO Last administered on 01/16/17 08:45 ; Start 01/13/17 at 09:00 Losartan Potassium (Cozaar) 50 mg DAILY PO ; Start 01/14/17 at 09:00; Stop 01/14 at 11:20; Status DC Digoxin (Lanoxin) 250 mcg 1X ONCE IV Last administered on 01/13/17 10:26; Start 01/13/17 at 10:45; Stop 01/13/17 at 10:47; Status DC Metoprolol Succinate (Toprol Xl) 25 mg 1X ONCE PO Last administered on 15:25; Start 01/13/17 at 13:20; Stop 01/13/17 at 13:21; Status DC Metoprolol Succinate (Toprol Xl) 25 mg DAILY PO Last administered on 01/16/17 08:46; Start 01/14/17 at 09:00 Trimethoprim/ Sulfamethoxazole (Bactrim Ds) 1 tab BID PO Last administered on 07:48; Start 01/13/17 at 21:00; Stop 01/14/17 at 08:45; Status DC Furosemide (Lasix) 40 mg DAILY08 IVP Last administered on 01/16/17 08:43; Start 01/14/17 at 08:00 Thiamine HCl (Vitamin B-1) 100 mg DAILY PO Last administered on 01/16/17 08:47 ; Start 01/14/17 at 09:00 Magnesium Oxide (Magnesium Oxide) 400 mg DAILY PO Last administered on 08:46; Start 01/14/17 at 09:00 Sodium Chloride 1,000 ml @ 1,000 mls/hr 1X ONCE IV ; Start 01/13/17 at 21:25; Stop 01/13/17 at 22:24; Status DC Sodium Chloride 500 ml @ As Directed STK-MED ONCE .ROUTE Last administered on 01/13/17 21:14; Start 01/13/17 at 21:14; Stop 01/13/17 at 21:18; Status DC Magnesium Sulfate 50 ml @ 25 mls/hr 1X ONCE IV Last administered on 01/14/17 07:48; Start 01/14/17 at 08:00; Stop 01/14/17 at 09:59; Status DC Levofloxacin/ Dextrose 150 ml @ 150 mls/hr DAILY IV Last administered on 09:28; Start 01/14/17 at 09:00; Stop 01/14/17 at 16:28; Status DC Vancomycin HCl (Vanco Per Pharmacy) 1 each PRN DAILY PRN MC SEE COMMENTS Last administered on 01/16/17 11:59; Start 01/14/17 at 08:45 Vancomycin HCl 2 gm/Sodium Chloride 500 ml @ 250 mls/hr 1X ONCE IV Last administered on 01/14/17 10:37; Start 01/14/17 at 11:00; Stop 01/14/17 at 12:59 ; Status DC Vancomycin HCl 1.5 gm/Sodium Chloride 500 ml @ 250 mls/hr Q24H IV Last administered on 01/16/17 12:04; Start 01/15/17 at 11:00 Vancomycin HCl 1 each 1X ONCE MC Last administered on 01/16/17 10:30; Start at 10:30; Stop 01/16/17 at 10:31; Status DC Amiodarone HCl 900 mg/Dextrose 518 ml @ 0 mls/hr CONT PRN IV SEE I/O RECORD Last administered on 01/14/17 11:25; Start 01/14/17 at 11:30; Stop 01/14/17 at 11:30; Status DC Amiodarone HCl 150 mg/Dextrose 103 ml @ 618 mls/hr 1X ONCE IVP Last administered on 01/14/17 11:24; Start 01/14/17 at 11:00; Stop 01/14/17 at 11:09 ; Status DC Amiodarone HCl (Cordarone) 200 mg DAILY PO Last administered on 01/16/17 08:45 ; Start 01/15/17 at 09:30 Magnesium Sulfate/ Dextrose 100 ml @ 100 mls/hr 1X ONCE IV Last administered on 01/15/17 09:55; Start 01/15/17 at 09:30; Stop 01/15/17 at 10:30; Status DC Aripiprazole (Abilify) 5 mg DAILY PO Last administered on 01/16/17 08:44; Start 01/15/17 at 21:00 Citalopram Hydrobromide (CeleXA) 20 mg DAILY PO ; Start 01/17/17 at 09:00 Vancomycin HCl 1 each 1X ONCE MC ; Start 01/19/17 at 10:30; Stop 01/19/17 at 10: 31 Throat Lozenges (Cepacol Sore Throat Lozenge) 1 annabella PRN Q2HR PRN PO SORE THROAT Last administered on 01/16/17 13:15; Start 01/16/17 at 13:15 Active Scripts Active Toprol Xl (Metoprolol Succinate) 100 Mg Tab.er.24h 100 Mg PO BID Lanoxin (Digoxin) 125 Mcg Tablet 125 Mcg PO DAILY Reported Eliquis (Apixaban) 5 Mg Tablet 5 Mg PO BID Omeprazole 40 Mg Capsule.dr 40 Mg PO DAILY LAST DOSE; TODAY BEFORE BREAKFAST NEXT DOSE; TOMORROW BEFORE BREAKFAST Furosemide 40 Mg Tablet 40 Mg PO DAILY LAST DOSE; TODAY AM NEXT DOSE; TOMORROW AM Pioglitazone Hcl 15 Mg Tablet 15 Mg PO DAILY LAST DOSE; TODAY WITH BREAKFAST NEXT DOSE; TOMORROW WITH BREAKFAST Atorvastatin Calcium 40 Mg Tablet 40 Mg PO QHS LAST DOSE; LAST NIGHT AT BEDTIME NEXT DOSE; TONIGHT AT BEDTIME Combivent Respimat Inhal (Ipratropium/Albuterol Sulfate) 4 Gm Aer.w.adap 4 Gm IH PRN QID PRN LAST DOSE; NEXT DOSE; TODAY IF NEEDED Diagnosis: Problems: (1) Alcohol withdrawal syndrome (2) Major depressive disorder, recurrent episode (3) Impulse control disorder BAIRON,MAN M MD Jan 16, 2017 23:13
[2017-01-17 00:14] VITALS: BP 108/72
--- NOTE | 2017-01-17 01:10 | PN ---
DATE: 01/15/2017 This late entry 01/15/2017 covers elements not covered in my initial note of 01/15/2017. SUBJECTIVE: The patient was seen individually evening of 01/15/2017. Overall, the patient has been doing a little better on 01/15/2017. He has been up and about ambulating, took a shower, has been talking about abstaining from alcohol. He still appears depressed, withdrawn, but better than before, per nursing report. REVIEW OF SYSTEMS: Still complains of tiredness, was somewhat sedated as I met with him. MENTAL STATUS EXAMINATION: Speech coherent, low in volume. Abstraction fair, computation impaired, language function intact. Attention span short. No clear psychotic symptoms, suicidal or homicidal ideation. Mood is dysphoric and depressed, but improved. Affect is mood congruent. IMPRESSION: Major depressive disorder, recurrent, in partial remission; history of alcohol abuse or dependence withdrawal, rest diagnoses unchanged. PLAN: Continue the patient on Celexa 10 mg a day starting 01/16/2017. We will increase it to 20 mg a day, augment with Abilify 5 mg a day. I discussed with the patient at some length individually about abstaining from alcohol and he was able to verbalize that he intends not to use it anymore. He was able to process how if his family could see his state due to the alcohol it would be severely disappointing and disheartening to them. We will make further adjustments as clinically indicated, but the plan for now, I have been informed this for the patient to return home with possible hospice care starting Wednesday01/17/2017. MAN Richard WADDELL MD DR: SÁNCHEZ/kristel JOB#: [id number] / [id number]
--- NOTE | 2017-01-17 04:21 | PN ---
DATE: 01/16/2017 SUBJECTIVE: The patient resting fairly comfortably. The patient does not want to go ahead with any further aggressive cardiac treatments. He has been on amiodarone drip did seem to control him, but he wants to go on to hospice and will make arrangements for hospice. OBJECTIVE: VITAL SIGNS: Blood pressure 100/70, respiration 18, pulse 68, afebrile. GENERAL: The patient is alert, but very kind lethargic looking. LUNGS: Diminished throughout, poor movement of air. CARDIOVASCULAR: Irregularly irregular rhythm. ABDOMEN: Soft, nontender. EXTREMITIES: No clubbing, cyanosis, edema. NEUROLOGIC: The patient alert, but very little self. In any case, we will continue to monitor the patient accordingly. Make further evaluation on him as indicated. IMPRESSION: Atrial fibrillation with rapid ventricular response, failure to thrive. PLAN: As above. WILL GOMEZ MD DR: LAWANDA/kristel JOB#: [id number] / [id number]
[2017-01-17] MEDS: IPRATRPIUM/ALBUTEROL 0.5/2.5MG 3 ML NEBU. NEB SCH ×2 (05:11→10:46)
[2017-01-17 05:24] VITALS: BP 116/69
[2017-01-17] MEDS: PANTOPRAZOLE 40 MG TABLET. PO SCH (07:49)
[2017-01-17] MEDS: FUROSEMIDE 40 MG/4 ML VIAL IVP SCH (07:49)
[2017-01-17] MEDS: ARIPiprazole 5 MG TABLET PO SCH (08:57)
[2017-01-17] MEDS: APIXABAN 5 MG TABLET. PO SCH (08:58)
[2017-01-17] MEDS: AMIODARONE HCL 200 MG TABLET PO SCH (08:58)
[2017-01-17] MEDS: TAMSULOSIN 0.4 MG CAP.ER.24H. PO SCH (08:59)
[2017-01-17] MEDS: POTASSIUM CHLORIDE 20 MEQ TABLET.ER. PO SCH (09:00)
[2017-01-17] MEDS: MAGNESIUM OXIDE 400 MG TABLET PO SCH (09:00)
[2017-01-17] MEDS ORDERED: CITALOPRAM 20 MG TABLET. PO SCH (09:00)
[2017-01-17] MEDS: DIGOXIN 125 MCG TABLET PO SCH (09:00)
[2017-01-17] MEDS: METOPROLOL SUCC 24HR ER 25 MG TAB.ER.24H. PO SCH (09:01)
[2017-01-17] MEDS: THIAMINE 100 MG TABLET. PO SCH (09:01)
[2017-01-17] MEDS: NICOTINE 21MG PATCH. TD SCH (09:02)
[2017-01-17 10:47] VITALS: BP 103/69
[2017-01-17] MEDS: VANCOMYCIN 1.5 GM in IV NORMAL SALINE 500ML 500 ML IV SCH (11:00)
[2017-01-17] MEDS: BENZOCAINE/MENTHOL LOZENGE 16'S BOX. PO PRN (11:31)
[2017-01-17] MEDS: HYDROcodone/CHLORPHEN POLIS 5 ML SUS.ER.12H PO PRN (11:31)
[2017-01-17] MEDS ORDERED: AMIO200T2 PO (11:32)
[2017-01-17] MEDS ORDERED: BENZ1LOZ48 PO (11:32)
[2017-01-17] MEDS ORDERED: METO25TA9 PO (11:32)
[2017-01-17] MEDS ORDERED: CITA20TA9 PO (11:32)
[2017-01-17] MEDS ORDERED: ARIP5TAB13 PO (11:32)
[2017-01-17] MEDS ORDERED: TAMS0.4C97 PO (11:32)
[2017-01-17] MEDS ORDERED: MAGN400T22 PO (11:32)
[2017-01-17] MEDS ORDERED: POTA20TA4 PO (11:32)
--- NOTE | 2017-01-17 23:30 | PN ---
DATE: 01/16/2017 PSYCHIATRIC PROGRESS NOTE This late entry of 01/16/2017 covers elements not covered in my initial note of 01/16/2017. SUBJECTIVE: The patient was seen on rounds the evening of 01/16/2017. Discussed with nursing staff, reviewed the chart. Overall, the patient remains somewhat withdrawn, but able to participate better in activities including showers. No clear suicidal ideation noted and he has verbalized his desire to stop using alcohol. MENTAL STATUS EXAM: The patient was seen in bed [address] He has been moved from the ICU. He is somewhat sedated. Speech has some latency, often responses monosyllabic. No psychotic symptoms, suicidal or homicidal ideation. Mood is still dysphoric, but he is tolerating the Celexa and Abilify. We processed his need to abstain from alcohol post-discharge and he was repeatedly stating he would not drink anymore, but that is certainly not clear. LABORATORY DATA: Reviewed. IMPRESSION: Major depressive disorder, recurrent, in partial remission; history of alcohol abuse or dependence, status post withdrawal. PLAN: Continue Celexa 10 mg a day, Abilify 5 mg a day. The patient is being discharged home on hospice 01/17/2017. Outpatient psychiatric followup, perhaps at the [facility]. RADHIKA WADDELL MD DR: SÁNCHEZ/kristel JOB#: [id number] / [id number]
== END 2017-01-17 13:34 | disposition hospice, home (50) | DRG 291 ==
LOC: 1 SOUTH 08:37 → ICU 11:41 → 1 SOUTH 01-16 17:59
PROVIDERS: ADMIT Family Medicine; ATTEND Family Medicine
DX: I11.0 Hypertensive heart disease with heart failure (principal); G92 Toxic encephalopathy; J96.00 Acute respiratory failure, unspecified whether with hypoxia or hypercapnia; I95.9 Hypotension, unspecified; I48.91 Unspecified atrial fibrillation; J44.9 Chronic obstructive pulmonary disease, unspecified; E11.65 Type 2 diabetes mellitus with hyperglycemia; F03.90 Unspecified dementia, unspecified severity, without behavioral disturbance, psychotic disturbance, mood disturbance, and anxiety; F10.239 Alcohol dependence with withdrawal, unspecified; I50.43 Acute on chronic combined systolic (congestive) and diastolic (congestive) heart failure; E78.5 Hyperlipidemia, unspecified; D72.829 Elevated white blood cell count, unspecified; K21.9 Gastro-esophageal reflux disease without esophagitis; N40.0 Benign prostatic hyperplasia without lower urinary tract symptoms; F17.210 Nicotine dependence, cigarettes, uncomplicated; F33.41 Major depressive disorder, recurrent, in partial remission; F41.9 Anxiety disorder, unspecified; F63.9 Impulse disorder, unspecified; H54.8 Legal blindness, as defined in USA; R62.7 Adult failure to thrive; Z82.49 Family history of ischemic heart disease and other diseases of the circulatory system; Z82.3 Family history of stroke; Z86.73 Personal history of transient ischemic attack (TIA), and cerebral infarction without residual deficits; Z79.01 Long term (current) use of anticoagulants; Z86.711 Personal history of pulmonary embolism; Z86.718 Personal history of other venous thrombosis and embolism
CPT/HCPCS: 36415; 71020; 71250; 74176; 80048; 80053; 80202; 80307; 81001; 82248; 82550; 82803; 82947; 83735; 83880; 84443; 84484; 85007; 85025; 85379; 87086; 87641; 93005; 93306; 94640; 99406; J0282; J1160; J1940; J1956; J2060; J3010; J3370; J3475; J3490; J7040; J7620; 97110; 97116; 97530; 97535; G0479

== ENCOUNTER 2017-12-31 20:27 | Inpatient (IN) | payer MEDICARE, BC ==
[~2017-12-31] VITALS: Ht 175.3 cm; Wt 76.9 kg
[~2017-12-31 20:27] MED LIST changes: +AMIO200T4 PO; +APIX5TAB3 PO; +ARIP5TAB13 PO; +BENZ1LOZ48 PO; +CITA20TA9 PO; -DIGO125T16 PO; +DIGO125T79 PO; +MAGN400T22 PO; +METO-239 PO; -METO100T2 PO; +METO100T7 PO; +OLME20TA17 PO; -OLME20TA19 PO; +PIOG15TA63 PO; -PIOG15TA69 PO; +POTA20TA4 PO
[2017-12-31 21:06] LABS: BASO # 0.1 x10^3/uL (0.0-0.2); BASO % 1 % (0-3); EOS # 0.2 x10^3/uL (0.0-0.7); EOS % 3 % (0-3); HEMATOCRIT 49.7 % (39.0-53.0); HEMOGLOBIN 17.3 g/dL (13.0-17.5); LYMPH # 1.9 x10^3/uL (1.0-4.8); LYMPH % 20 % (24-48); MEAN CORPUSCULAR HEMOGLOBIN 35 pg (25-35); MEAN CORPUSCULAR HGB CONC 35 g/dL (31-37); MEAN CORPUSCULAR VOLUME 99 fL (79-100); MONO # 1.1 x10^3/uL (0.0-1.1); MONO % 11 % (0-9); NEUT # 6.4 x10^3uL (1.8-7.7); NEUT % 66 % (31-73); PLATELET COUNT 238 x10^3/uL (140-400); WHITE BLOOD COUNT 9.7 x10^3/uL (4.0-11.0)
[2017-12-31 21:15] LABS: ALBUMIN/GLOBULIN RATIO 0.8 (1.0-1.7); CALCIUM 9.1 mg/dL (8.5-10.1); CREATININE 1.1 mg/dL (0.7-1.3); GFR 64.1; POTASSIUM 3.6 mmol/L (3.5-5.1); TOTAL BILIRUBIN 0.7 mg/dL (0.2-1.0)
--- NOTE | 2017-12-31 21:16 | PHYS DOC ---
Past History Past Medical History: A-Fib, COPD, Diabetes, GERD, Heart Disease, Stroke Past Surgical History: Appendectomy Smoking: Cigarettes, Less than 1pk/day Alcohol Use: Heavy Drug Use: None Adult General Chief Complaint Chief Complaint: MECHANICAL FALL [facility] 82-year-old male presents via EMS after mechanical fall at home. He was complaining of neck pain at the scene and is in a c-collar. Patient states that he was walking across his living room to turn off the TV when he tripped and hit his head against the end table. He is unsure if he was knocked unconscious. Patient states he is legally blind and sometimes does not see things on the floor very well. His current complaints are skin tears and abrasions to the face and arm. He denies any significant pain. The patient admits to drinking at least 2 beers a day and did have 2 beers before his fall. The patient is on Eloquis for A fib. He denies fever, chills, chest pain, shortness of breath. Review of Systems Review of Systems Constitutional: Denies fever or chills [] Eyes: Denies change in visual acuity, redness, or eye pain [] HENT: Denies nasal congestion or sore throat [] Respiratory: Denies cough or shortness of breath [] Cardiovascular: No additional information not addressed in HPI [] GI: Denies abdominal pain, nausea, vomiting, bloody stools or diarrhea [] : Denies dysuria or hematuria [] Musculoskeletal: Denies back pain or joint pain [] Integument: Abrasions of the face. Skin tear of the right elbow[] Neurologic: Denies headache, focal weakness or sensory changes [] Endocrine: Denies polyuria or polydipsia [] All other systems were reviewed and found to be within normal limits, except as documented in this note. Allergies Allergies Allergies Coded Allergies Type Severity Reaction Last Updated Verified Penicillins Allergy Intermediate 09/04/14 Yes iodine Allergy Intermediate 09/04/14 Yes shellfish derived Allergy Intermediate 09/04/14 Yes Physical Exam Physical Exam Constitutional: Well developed, well nourished, no acute distress, non-toxic appearance. [] HENT: Normocephalic, atraumatic, bilateral external ears normal, oropharynx moist, no oral exudates, nose normal. In a c-collar[] Eyes: PERRLA, EOMI, conjunctiva normal, no discharge. [] Neck: Normal range of motion, no tenderness, supple, no stridor. [] Cardiovascular:Heart rate regular rhythm, no murmur [] Lungs & Thorax: Bilateral breath sounds clear to auscultation [] Abdomen: Bowel sounds normal, soft, no tenderness, no masses, no pulsatile masses. [] Skin: Superficial abrasions to the forehead and bridge of the nose. Small skin tear of the lateral right elbow. Age-related changes[] Back: No tenderness, no CVA tenderness. [] Extremities: No tenderness, no cyanosis, no clubbing, ROM intact, no edema. [] Neurologic: Alert and oriented X 3, normal motor function, normal sensory function, no focal deficits noted. [] Psychologic: Affect normal, judgement normal, mood normal. [] Current Patient Data Vital Signs Vital Signs Date Time Temp Pulse Resp B/P (MAP) Pulse Ox O2 Delivery O2 Flow Rate FiO2 12/31/17 20:33 97.8 66 20 95 Room Air Lab Results Laboratory Tests Test 12/31/17 20:35 White Blood Count 9.7 x10^3/uL (4.0-11.0) Red Blood Count 5.00 x10^6/uL (4.30-5.70) Hemoglobin 17.3 g/dL (13.0-17.5) Hematocrit 49.7 % (39.0-53.0) Mean Corpuscular Volume 99 fL (79-100) Mean Corpuscular Hemoglobin 35 pg (25-35) Mean Corpuscular Hemoglobin Concent 35 g/dL (31-37) Red Cell Distribution Width 13.0 % (11.5-14.5) Platelet Count 238 x10^3/uL (140-400) Neutrophils (%) (Auto) 66 % (31-73) Lymphocytes (%) (Auto) 20 % (24-48) L Monocytes (%) (Auto) 11 % (0-9) H Eosinophils (%) (Auto) 3 % (0-3) Basophils (%) (Auto) 1 % (0-3) Neutrophils # (Auto) 6.4 x10^3uL (1.8-7.7) Lymphocytes # (Auto) 1.9 x10^3/uL (1.0-4.8) Monocytes # (Auto) 1.1 x10^3/uL (0.0-1.1) Eosinophils # (Auto) 0.2 x10^3/uL (0.0-0.7) Basophils # (Auto) 0.1 x10^3/uL (0.0-0.2) EKG EKG A. fib, rate 60, left axis deviation, likely ventricular hypertrophy,[] Radiology/Procedures Radiology/Procedures [] Impressions: CT Head W/O Contrast: History: Fall Comparison: none Axial images were obtained without contrast. There is marked diffuse atrophy. There is no mass effect, extraaxial fluid collections or hydrocephalus. There is no gross bleed. Marked diffuse periventricular and subcortical white matter hypoattenuation is seen. There is no focal loss of agarwal-white matter distinction to suggest acute ischemia, i.e. stroke. Impression: No acute findings. End impression CT C-Spine without contrast: Clinical History: Pain status post fall Technique: Axial helical images of the cervical spine were obtained without contrast, axial coronal and sagittal reconstruction was performed. Findings: There is no loss of vertebral body stature. There is no prevertebral soft tissue swelling. The vertebral bodies are well aligned. The C1-C2 relationship is normal. The visualized osseous structures appear normal. Evaluation of the central canal is limited without contrast. There is multiple posterior disc bulges resulting in flattening of the thecal sac. There does not appear to be gross flattening of the cervical cord. There is moderate narrowing of multiple neuroforamen. Impression: No acute findings. Clinical correlation suggested. PQRS Compliance Statement: One or more of the following individualized dose reduction techniques were utilized for this examination: 1. Automated exposure control 2. Adjustment of the mA and/or kV according to patient size 3. Use of iterative reconstruction technique Electronically signed by: Willie Agudelo III, MD (12/31/2017 9:30 PM) [facility] DICTATED AND SIGNED BY: WILLIE AGUDELO III, MD DATE: 12/31/172119 CC: RICHAR BECKETT DO; WILL GOMEZ MD ~ Course & Med Decision Making Course & Med Decision Making Pertinent Labs and Imaging studies reviewed. (See chart for details) The patient's labs are unremarkable. His head CT is negative for acute findings. His EKG does not show acute findings. his troponin is negative. His urinalysis is negative for infection. Given the patient's Eloquis use and head trauma, I believe it is prudent to admit him to the hospital for further observation. I discussed the case with Dr. Hyman and he has accepted the patient for admission. The patient is in agreement with admission. [] Dragon Disclaimer Dragon Disclaimer This electronic medical record was generated, in whole or in part, using a voice recognition dictation system. Departure Departure: Referrals: WILL GOMEZ MD (PCP) RICHAR BECKETT DO Dec 31, 2017 21:15
--- NOTE | 2017-12-31 21:26 | EKG ---
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
--- NOTE | 2017-12-31 21:34 | RAD ---
CT Head W/O Contrast: History: Fall Comparison: none Axial images were obtained without contrast. There is marked diffuse atrophy. There is no mass effect, extraaxial fluid collections or hydrocephalus. There is no gross bleed. Marked diffuse periventricular and subcortical white matter hypoattenuation is seen. There is no focal loss of agarwal-white matter distinction to suggest acute ischemia, i.e. stroke. Impression: No acute findings. End impression CT C-Spine without contrast: Clinical History: Pain status post fall Technique: Axial helical images of the cervical spine were obtained without contrast, axial coronal and sagittal reconstruction was performed. Findings: There is no loss of vertebral body stature. There is no prevertebral soft tissue swelling. The vertebral bodies are well aligned. The C1-C2 relationship is normal. The visualized osseous structures appear normal. Evaluation of the central canal is limited without contrast. There is multiple posterior disc bulges resulting in flattening of the thecal sac. There does not appear to be gross flattening of the cervical cord. There is moderate narrowing of multiple neuroforamen. Impression: No acute findings. Clinical correlation suggested. PQRS Compliance Statement: One or more of the following individualized dose reduction techniques were utilized for this examination: 1. Automated exposure control 2. Adjustment of the mA and/or kV according to patient size 3. Use of iterative reconstruction technique Electronically signed by: Ricardo Mathews III, MD (12/31/2017 9:30 PM) [facility]
[2017-12-31 22:18] LABS: BACTERIA,URINE 0 /HPF (0-FEW); BILIRUBIN,URINE NEG (NEG); CLARITY,URINE CLEAR; COLOR,URINE YELLOW; GLUCOSE,URINE NEG (NEG); NITRITE,URINE NEG (NEG); RBC,URINE RARE /HPF (0-2); SQUAMOUS EPITHELIAL CELL,UR OCC /LPF; UROBILINOGEN,URINE 0.2 mg/dL (0.2 mg/dL)
[2017-12-31 22:19] LABS: HYALINE CASTS, URINE FEW /HPF
[2018-01-01 00:51] VITALS: BP 146/90
[2018-01-01] MEDS ORDERED: APIX5TAB3 PO ×2 (01:08→01:58)
[2018-01-01] MEDS ORDERED: TRAZ-86 PO (01:11)
[2018-01-01] MEDS ORDERED: FAMO-63 PO (01:11)
[2018-01-01] MEDS ORDERED: DIGO125T PO (01:11)
[2018-01-01] MEDS ORDERED: ARIP10TA9 PO (01:11)
[2018-01-01] MEDS ORDERED: METO25TA4 PO (01:12)
[2018-01-01] MEDS: ACETAMINOPHEN 500 MG TABLET PO PRN ×2 (01:45→11:50)
[2018-01-01 05:13] VITALS: BP 117/79
--- NOTE | 2018-01-01 07:41 | RAD ---
Indication:Fall TECHNIQUE:Portable AP chest X-ray COMPARISON:01/12/2017 FINDINGS: Heart is normal in size. Lungs are hyperinflated. Mild interstitial prominence is seen. No pneumothorax or pleural effusion. Visualized bony thorax is within normal limits. IMPRESSION: 1. Findings of COPD. 2. Mild diffuse interstitial prominence may be secondary to interstitial pulmonary edema, chronic interstitial changes or atypical/viral infection. Electronically signed by: Chuck Batista DO (01/01/2018 7:37 AM) [facility]
[2018-01-01 10:16] VITALS: BP 104/64
[2018-01-01] MEDS ORDERED: METOPROLOL TART IMMED RELEASE 25 MG TABLET PO SCH (11:30)
[2018-01-01] MEDS ORDERED: AMIODARONE HCL 200 MG TABLET PO SCH (11:30)
[2018-01-01] MEDS ORDERED: ARIPiprazole 5 MG TABLET PO SCH (11:30)
[2018-01-01] MEDS ORDERED: TAMSULOSIN 0.4 MG CAP.ER.24H. PO SCH (11:30)
[2018-01-01] MEDS ORDERED: APIXABAN 5 MG TABLET. PO SCH (11:30)
[2018-01-01] MEDS ORDERED: FUROSEMIDE 40 MG/4 ML VIAL IVP ONE (11:30)
[2018-01-01] MEDS ORDERED: DIGOXIN 125 MCG TABLET PO SCH (11:30)
[2018-01-01] MEDS ORDERED: FAMOTIDINE 20 MG TABLET PO SCH (11:30)
[2018-01-01 11:53] VITALS: BP 104/64
--- NOTE | 2018-01-01 15:32 | HP ---
ADMIT DATE: 12/31/2017 HISTORY OF PRESENT ILLNESS: An 82-year-old male who lives at home and apparently has poor eyesight, tripped over a rug, fell to the floor, had a contusion to his head, hit his head against the end table. He was unconscious for this momentarily. He did not see things on the floor very well. The patient was unaware of how much or how long he was on the floor. The patient had been drinking a few beers prior to this. The patient was on Eliquis and also for history of AFib. The patient came in through the Emergency Room and had multiple abrasions to the face as well as to his hands and knees, and the patient was admitted to the hospital for observation, mild concussion. PAST MEDICAL HISTORY: AFib, COPD, diabetes, GERD, heart disease, history of stroke, and legally blind. PAST SURGICAL HISTORY: Appendectomy. SOCIAL HISTORY: Smoking cigarettes, less than a pack a day. Alcohol use, apparently only drinks daily and was noted. He smokes about a pack of cigarettes a day. Denies chewing tobacco otherwise. FAMILY HISTORY: Unremarkable. ALLERGIES: PENICILLIN, CODEINE, AND SHELLFISH. HOME MEDICATIONS: Include that of trazodone 100 mg at bedtime, Pepcid 20 b.i.d., digoxin 125, Abilify 5 mg, Eliquis 5 b.i.d., amiodarone 200 mg daily, Flomax 0.4, metoprolol 25, Tylenol, furosemide 40 mg daily. REVIEW OF SYSTEMS: The patient has a contusion and abrasion to the forehead and nasal bridge and nose itself. The patient denied chest pain, shortness breath, just feels weak, short of breath, but says it is baseline for him. PHYSICAL EXAMINATION: GENERAL: This is a white male, moderate amount of apparent distress, but marked abrasion to the forehead, nose bridge of the nose as well as some scraping on his knees. VITAL SIGNS: Blood pressure 146/90, respiratory rate 20, pulse 70, afebrile. The patient's eyes are sluggish, but he has a history of chronic blindness there. HEENT: The patient's abrasion is noted. The mouth and throat were normal. NECK: Supple without lymphadenopathy or thyromegaly. LUNGS: Diminished throughout, poor movement of air. CARDIOVASCULAR: Regular sinus rhythm, S1, S2, without murmur, rub, thrill, or extra heart sounds. ABDOMEN: Soft, nontender, no rebound or guarding. Positive bowel sounds, no hepatosplenomegaly was noted. EXTREMITIES: No clubbing, cyanosis, nor edema. NEUROLOGIC: The patient was alert. He has some generalized weakness. He seems to be oriented. Speech was fluent and spontaneous. The patient was knowledgeable was date and time and he wanted to be discharged. He was walked around on the floor of the nurses station and making good progress there. Overall, the patient otherwise will continue to be monitored carefully and make further evaluation on him as indicated. IMPRESSION AND PLAN: Mild concussion secondary to fall at home. Legally blind, [id number] protein malnutrition, abrasion to the face secondary to fall at home. PLAN: As above. Continue to monitor the patient accordingly and make further evaluation on him as indicated per those results. He will be discharged home per his request demanded to be discharged to monitor him accordingly. WILL GOMEZ MD DR: LAWANDA/kristel JOB#: [id number] / [id number]
[2018-01-01] MEDS ORDERED: traZODone 100 MG TABLET. PO SCH (21:00)
== END 2018-01-01 14:50 | disposition home or self-care (01) | DRG 89 ==
LOC: ER 20:27 → 1 SOUTH 23:50
PROVIDERS: ADMIT Family Medicine; ATTEND Family Medicine
DX: S06.0X9A Concussion with loss of consciousness of unspecified duration, initial encounter (principal); E44.0 Moderate protein-calorie malnutrition; S00.81XA Abrasion of other part of head, initial encounter; S41.119A Laceration without foreign body of unspecified upper arm, initial encounter; E11.9 Type 2 diabetes mellitus without complications; F17.210 Nicotine dependence, cigarettes, uncomplicated; H54.8 Legal blindness, as defined in USA; I48.91 Unspecified atrial fibrillation; J44.9 Chronic obstructive pulmonary disease, unspecified; K21.9 Gastro-esophageal reflux disease without esophagitis; W18.09XA Striking against other object with subsequent fall, initial encounter; Z86.73 Personal history of transient ischemic attack (TIA), and cerebral infarction without residual deficits; Z90.49 Acquired absence of other specified parts of digestive tract; Z68.25 Body mass index [BMI] 25.0-25.9, adult; Z88.8 Allergy status to other drugs, medicaments and biological substances; Z88.0 Allergy status to penicillin; Z91.013 Allergy to seafood; Y92.098 Other place in other non-institutional residence as the place of occurrence of the external cause
CPT/HCPCS: 36415; 70450; 71045; 72125; 80053; 81001; 84484; 85025; 85610; 85730; 93005; 99285-25

== ENCOUNTER 2018-03-09 14:10 | Emergency (ER) | payer MEDICARE, BC ==
[~2018-03-09 14:10] MED LIST changes: +ARIP10TA9 PO; +DIGO125T PO; +FAMO-63 PO; +METO25TA4 PO; +TRAZ-86 PO
--- NOTE | 2018-03-09 14:50 | EKG ---
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
[2018-03-09] MEDS ORDERED: ONDANSETRON PF 4 MG/2 ML VIAL. IV ONE (16:00)
[2018-03-09 16:24] LABS: BASO # 0.1 x10^3/uL (0.0-0.2); BASO % 0 % (0-3); EOS % 0 % (0-3); HEMATOCRIT 50.3 % (39.0-53.0); HEMOGLOBIN 17.4 g/dL (13.0-17.5); LYMPH # 0.9 x10^3/uL (1.0-4.8); LYMPH % 5 % (24-48); MEAN CORPUSCULAR HEMOGLOBIN 34 pg (25-35); MEAN CORPUSCULAR HGB CONC 35 g/dL (31-37); MEAN CORPUSCULAR VOLUME 100 fL (79-100); MONO # 1.6 x10^3/uL (0.0-1.1); MONO % 9 % (0-9); NEUT % 86 % (31-73); PLATELET COUNT 219 x10^3/uL (140-400); RED BLOOD COUNT 5.05 x10^6/uL (4.30-5.70); RED CELL DISTRIBUTION WIDTH 13.7 % (11.5-14.5); WHITE BLOOD COUNT 18.5 x10^3/uL (4.0-11.0)
[2018-03-09 16:37] LABS: ALBUMIN/GLOBULIN RATIO 0.9 (1.0-1.7); CALCIUM 8.8 mg/dL (8.5-10.1); CREATININE 1.8 mg/dL (0.7-1.3); GFR 36.3; POTASSIUM 3.8 mmol/L (3.5-5.1); TOTAL BILIRUBIN 1.1 mg/dL (0.2-1.0); TOTAL PROTEIN 6.4 g/dL (6.4-8.2)
--- NOTE | 2018-03-09 16:55 | ED.ADGEN ---
Past History Past Medical History: A-Fib, COPD, Diabetes, GERD, Heart Disease, Stroke Past Surgical History: Appendectomy Smoking: Cigarettes, Less than 1pk/day Alcohol Use: Heavy Drug Use: None Adult General Chief Complaint Chief Complaint Fall, back pain, HPI HPI Patient is a 82-year-old male with history of chronic gait instability who presents with accidental fall while getting his trash out. Patient reports tenderness, bruising over right forearm. States upon returning incidental knee, he slipped and fell backwards hitting his head. Patient reports posterior headache, diffuse mid and upper and lower back pain. Pain is worse with palpation and movement. No extremity weakness or loss of sensation. Patient does take daily Plavix for treatment of CAD/previous stroke. No nausea vomiting. No chest pain palpitations. No abdominal pain. No lower extremity pain or injury. No other acute symptoms or complaints. Patient current smoker and drinks occasional beer. He lives with his daughter. [] Review of Systems Review of Systems Review symptoms as per history of present illness. All other review symptoms are negative. All other systems were reviewed and found to be within normal limits, except as documented in this note. Current Medications Current Medications Current Medications Medications (Trade) Dose Ordered Sig/Catherine Start Time Stop Time Status Last Admin Dose Admin Fentanyl Citrate (Fentanyl 2ml Vial) 50 mcg 1X ONCE 03/09/18 16:00 03/09/18 16:01 DC 03/09/18 16:19 50 MCG Ondansetron HCl (Zofran) 4 mg 1X ONCE 03/09/18 16:00 03/09/18 16:01 DC 03/09/18 16:19 4 MG Allergies Allergies Allergies Coded Allergies Type Severity Reaction Last Updated Verified Penicillins Allergy Intermediate 09/04/14 Yes iodine Allergy Intermediate 09/04/14 Yes shellfish derived Allergy Intermediate 09/04/14 Yes Physical Exam Physical Exam Constitutional: Well developed, well nourished, no acute distress, non-toxic appearance. [] HENT: Normocephalic, atraumatic, bilateral external ears normal, oropharynx moist, no oral exudates, nose normal. [] Eyes: PERRLA, EOMI, conjunctiva normal, no discharge. [] Neck: Normal range of motion, no tenderness, supple, no stridor. [] Cardiovascular:Heart rate regular rhythm, no murmur [] Lungs & Thorax: Bilateral breath sounds clear to auscultation [] Abdomen: Bowel sounds normal, soft, no tenderness. [] Skin: Warm, dry, no erythema, no rash. [] Back: Diffuse mid upper and lower back pain[] Extremities: Minor abrasions, right arm, former deformities. [] Neurologic: Alert and oriented X 3, normal motor function, normal sensory function, no focal deficits noted. [] Psychologic: Affect normal, judgement normal, mood normal. [] Current Patient Data Vital Signs Vital Signs Date Time Temp Pulse Resp B/P (MAP) Pulse Ox O2 Delivery O2 Flow Rate FiO2 03/09/18 17:30 58 16 128/77 (94) 94 Room Air 03/09/18 14:13 98.1 Lab Results Laboratory Tests Test 03/09/18 16:13 White Blood Count 18.5 x10^3/uL (4.0-11.0) H Red Blood Count 5.05 x10^6/uL (4.30-5.70) Hemoglobin 17.4 g/dL (13.0-17.5) Hematocrit 50.3 % (39.0-53.0) Mean Corpuscular Volume 100 fL (79-100) Mean Corpuscular Hemoglobin 34 pg (25-35) Mean Corpuscular Hemoglobin Concent 35 g/dL (31-37) Red Cell Distribution Width 13.7 % (11.5-14.5) Platelet Count 219 x10^3/uL (140-400) Neutrophils (%) (Auto) 86 % (31-73) H Lymphocytes (%) (Auto) 5 % (24-48) L Monocytes (%) (Auto) 9 % (0-9) Eosinophils (%) (Auto) 0 % (0-3) Basophils (%) (Auto) 0 % (0-3) Neutrophils # (Auto) 16.0 x10^3uL (1.8-7.7) H Lymphocytes # (Auto) 0.9 x10^3/uL (1.0-4.8) L Monocytes # (Auto) 1.6 x10^3/uL (0.0-1.1) H Eosinophils # (Auto) 0.0 x10^3/uL (0.0-0.7) Basophils # (Auto) 0.1 x10^3/uL (0.0-0.2) Segmented Neutrophils % 88 % (35-66) H Band Neutrophils % 2 % (0-9) Lymphocytes % 6 % (24-48) L Monocytes % 4 % (0-10) Toxic Granulation Present Platelet Estimate Adequate (ADEQUATE) Sodium Level 138 mmol/L (136-145) Potassium Level 3.8 mmol/L (3.5-5.1) Chloride Level 102 mmol/L (98-107) Carbon Dioxide Level 30 mmol/L (21-32) Anion Gap 6 (6-14) Blood Urea Nitrogen 13 mg/dL (8-26) Creatinine 1.8 mg/dL (0.7-1.3) H Estimated GFR (Cockcroft-Gault) 36.3 BUN/Creatinine Ratio 7 (6-20) Glucose Level 113 mg/dL (70-99) H Calcium Level 8.8 mg/dL (8.5-10.1) Total Bilirubin 1.1 mg/dL (0.2-1.0) H Aspartate Amino Transferase (AST) 20 U/L (15-37) Alanine Aminotransferase (ALT) 26 U/L (16-63) Alkaline Phosphatase 104 U/L (46-116) Troponin I Quantitative < 0.017 ng/mL (0-0.055) Total Protein 6.4 g/dL (6.4-8.2) Albumin 3.0 g/dL (3.4-5.0) L Albumin/Globulin Ratio 0.9 (1.0-1.7) L Ethyl Alcohol Level < 10 mg/dL (0-10) EKG EKG [EKG: ] Radiology/Procedures Radiology/Procedures [CT head/cervical spine: No acute findings CT thoracic/lumbar spine: T12 compression fracture. Course & Med Decision Making Course & Med Decision Making Pertinent Labs and Imaging studies reviewed. (See chart for details) [Patient with diffuse back pain with findings of acute T12 fracture without retropulsion of fragments. Pain address. Patient also noted to have elevated white blood cell, concern for a stress reaction versus infection. UA and chest x -ray pending. Care endorsed to oncoming [facility] at 1800. Disposition pending review of final studies and clinical reassessment.] Final Impression Final Impression [] Dragon Disclaimer Dragon Disclaimer This electronic medical record was generated, in whole or in part, using a voice recognition dictation system. RICHAR HILARIO DO Mar 09, 2018 16:55
[2018-03-09 17:05] LABS: % BANDS 2 % (0-9); % LYMPHS 6 % (24-48); % MONOS 4 % (0-10); % SEGS 88 % (35-66)
[2018-03-09 17:06] LABS: PLT ESTIMATE ADEQUATE (ADEQUATE); TOXIC GRANULATION PRESENT
--- NOTE | 2018-03-09 17:32 | RAD ---
PQRS Compliance statement: One or more of the following individualized dose reduction techniques were utilized for this examination: 1. Automated exposure control. 2. Adjustment of the mA and/or kV according to patient size. 3. Use of iterative reconstruction technique. Indication:FALL, HEAD/NECK PAIN, BACK PAIN TECHNIQUE: CT head without IV contrast COMPARISON:12/31/2017 FINDINGS: No pathologic extra-axial or intra-axial fluid collection. Moderate diffuse cerebral atrophy with ex vacuo dilation of the ventricles. The basal cisterns are within normal limits. No acute intracranial bleed. Confluent advanced low-attenuation is seen in the periventricular and deep white matter. Bilateral basal ganglia lacunar infarcts, stable from previous exam. No focal loss of agarwal-white differentiation. Orbits are within normal limits. No acute calvarial fractures. Visualized paranasal sinuses and mastoid air cells are clear. IMPRESSION: 1. No acute intracranial bleed. 2. Advanced white matter changes most likely secondary to chronic microvascular ischemic disease. 3. Stable bilateral basal ganglia lacunar infarcts Indication:FALL, HEAD/NECK PAIN, BACK PAIN TECHNIQUE: CT of the cervical spine without IV contrast with multiplanar reformats. COMPARISON:12/31/2017 FINDINGS: The cervical spine is in normal anatomic alignment. Atlantoaxial joint interval is preserved with mild degenerative changes. No compression deformities. Facet joints are in normal anatomic alignment with advanced multilevel facet arthropathy. No acute fractures. Diffuse atherosclerotic disease seen of the visualized sections of the cavernous segments of the ICA. Significant atherosclerotic burden seen in the left carotid bulb. Otherwise, visualized noncontrast sections through the neck soft tissues are within normal limits. IMPRESSION: 1. No acute fractures. 2. Mild multilevel degenerative disc disease with advanced multilevel facet arthropathy. INDICATION: Trauma TECHNIQUE: CT of the thoracic and lumbar spine with multiplanar reformats COMPARISON: None FINDINGS: CT thoracic spine: Diffuse osteopenia. Thoracic spine is in normal anatomic alignment. There is mild diffuse loss of T12 vertebral body with less than 25 percent loss of body height. The facet joints are in normal anatomic alignment. No acute fractures. Large sliding hiatal hernia. Diffuse mild to moderate centrilobular and paraseptal emphysema. Coronary artery calcifications noted in the visualized heart. Mild diffuse atherosclerotic disease seen of the thoracic aorta. CT lumbar spine: There is very mild levoscoliosis of the number spine. There are 5 lumbar type vertebral bodies. No compression deformities. Multilevel intervertebral disc space narrowing with vacuum phenomena compatible with degenerative disc disease. Facet joints are in normal anatomic alignment with multilevel moderate facet arthropathy. No acute fractures. Mild bilateral SI joint arthritis. Infrarenal IVC filter noted. Moderate diffuse atherosclerotic disease seen of the abdominal aorta with aneurysmal dilation of the infrarenal aorta measuring 4.4 cm in diameter. Sigmoid diverticulosis. Diffuse nodular thickening of the left adrenal gland noted. IMPRESSION: 1. Mild compression deformity of T12 vertebral body with loss of less than 25 percent body height with no retropulsion in the spinal canal. 2. Infrarenal abdominal aortic aneurysm measuring 4.4 cm in diameter. 3. Diffuse nodular thickening of the left adrenal gland may be from adenomatous hyperplasia not changed when compared to previous exam from 01/13/2017. 4. Moderate multilevel degenerative disc disease in the lumbar spine with associated facet arthropathy. Electronically signed by: Chuck Batista DO (03/09/2018 5:29 PM) [facility]
[2018-03-09 18:30] VITALS: BP 149/89
[2018-03-09] MEDS ORDERED: cefTRIAXone SODIUM 1 GM VIAL IV ONE (21:02)
[2018-03-09] MEDS ORDERED: IV NORMAL SALINE 50ML 50 ML ONE (21:02)
[2018-03-09] MEDS ORDERED: fentaNYL PF 250 MCG/5 ML VIAL IV ONE (21:15)
--- NOTE | 2018-03-09 23:41 | RAD ---
Indication:chest and rib pain, fall TECHNIQUE:Portable AP chest X-ray COMPARISON:12/31/2017 FINDINGS: Heart is mildly enlarged in size. Diffuse mild prominence of interstitium seen without focal consolidation. No pneumothorax or effusion. Visualized bony thorax within normal limits. Lungs are hyperinflated. IMPRESSION: Findings of COPD. Diffuse interstitial prominence which may be secondary to mild interstitial pulmonary edema or atypical/viral infection. Electronically signed by: Chuck Batista DO (03/09/2018 11:37 PM) [facility]
== END 2018-03-09 21:40 | disposition short-term general hospital (02) ==
LOC: ER 14:10
DX: S22.080A Wedge compression fracture of T11-T12 vertebra, initial encounter for closed fracture (principal); S50.11XA Contusion of right forearm, initial encounter; R51 Headache; I48.91 Unspecified atrial fibrillation; J44.9 Chronic obstructive pulmonary disease, unspecified; E11.9 Type 2 diabetes mellitus without complications; K21.9 Gastro-esophageal reflux disease without esophagitis; D72.829 Elevated white blood cell count, unspecified; F17.210 Nicotine dependence, cigarettes, uncomplicated; F10.20 Alcohol dependence, uncomplicated; Z86.73 Personal history of transient ischemic attack (TIA), and cerebral infarction without residual deficits; Z91.041 Radiographic dye allergy status; Z88.0 Allergy status to penicillin; Z91.013 Allergy to seafood; Y90.0 Blood alcohol level of less than 20 mg/100 ml; W01.198A Fall on same level from slipping, tripping and stumbling with subsequent striking against other object, initial encounter; Y93.89 Activity, other specified; Y92.89 Other specified places as the place of occurrence of the external cause; Y99.8 Other external cause status
CPT/HCPCS: 36415; 70450; 71045; 72125; 72128; 72131; 80053; 84484; 85007; 85025; 93005; 96365; 96375; 96376; 99285; G0480; J0696; J2405; J3010

== ENCOUNTER 2018-03-16 13:30 | Inpatient (IN) | payer MEDICARE, BC ==
[~2018-03-16] VITALS: Ht 177.8 cm; Wt 78.3 kg
[~2018-03-16 13:30] MED LIST changes: +ALBU6.7H IH
[2018-03-16 14:45] VITALS: BP 140/83
[2018-03-16] MEDS ORDERED: ALBUTEROL SULFATE 8GM INHALER. IH PRN (16:45)
[2018-03-16] MEDS ORDERED: ALBUTEROL SULFATE 2.5 MG/3 ML NEBU. NEB PRN (17:00)
[2018-03-16 18:03] VITALS: BP 144/88
[2018-03-16] MEDS: FAMOTIDINE 20 MG TABLET PO SCH (20:37)
[2018-03-16] MEDS: traZODone 100 MG TABLET. PO SCH (20:38)
[2018-03-16] MEDS: METOPROLOL TART IMMED RELEASE 25 MG TABLET PO SCH (20:38)
[2018-03-16] MEDS: APIXABAN 5 MG TABLET. PO SCH (20:38)
[2018-03-16] MEDS: TAMSULOSIN 0.4 MG CAP.ER.24H. PO SCH (20:38)
[2018-03-16] MEDS: HYDROcodone/APAP 5/325MG 1 TAB TABLET PO PRN (21:55)
[2018-03-17] MEDS: HYDROcodone/APAP 5/325MG 1 TAB TABLET PO PRN ×2 (05:39→19:33)
[2018-03-17 05:51] VITALS: BP 147/85
[2018-03-17] MEDS: APIXABAN 5 MG TABLET. PO SCH ×2 (09:17→19:34)
[2018-03-17] MEDS: FAMOTIDINE 20 MG TABLET PO SCH ×2 (09:17→19:34)
[2018-03-17] MEDS: METOPROLOL TART IMMED RELEASE 25 MG TABLET PO SCH ×2 (09:17→19:34)
[2018-03-17] MEDS: DIGOXIN 125 MCG TABLET PO SCH (09:17)
[2018-03-17] MEDS: ARIPiprazole 5 MG TABLET PO SCH (09:17)
[2018-03-17] MEDS: AMIODARONE HCL 200 MG TABLET PO SCH (09:21)
--- NOTE | 2018-03-17 10:35 | HP ---
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 The patient seen by Cardiology, ejection fraction of 25%. The patient possibly passed up, near syncopal spell episode. The patient also experienced an accidental fall and as a result of that had problems with a mild concussion due to his presyncope, maybe he had a compression fracture. He was treated down at [place] and he is presently appeared for rehabilitation as the patient needs to be rehabilitated with his mechanical falls, possible compression fracture and the like. 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 ALLERGIES: TO PENICILLIN and IODINE. FAMILY HISTORY: Coronary artery disease. SOCIAL HISTORY: The patient recently just quit smoking, although he continues to drink. Lives with his daughter. MEDICATIONS: Reviewed in the MRAD and stable from his transfer included Lanoxin 125 mcg, Abilify 5, Cordarone 200, hydrocodone, trazodone 100, Pepcid 20, Eliquis 5, Flomax 0.4, metoprolol 25, albuterol 2.5. REVIEW OF SYSTEMS: As stated in the HPI. The patient is extremely limited as he is a poor historian. PHYSICAL EXAMINATION: GENERAL: The patient, on examination, is a pleasant white male, looking older than stated age. The patient otherwise is alert. He has some speech, he does have some decrease and he is alert x 2. VITAL SIGNS: Blood pressure 147/85, respiratory rate 46, pulse 80, afebrile. LUNGS: Otherwise, lungs are diminished, slight crackles in the bases. CARDIOVASCULAR: Irregularly irregular rhythm. ABDOMEN: Soft, nontender, no rebound or guarding. Positive bowel sounds, no hepatosplenomegaly. EXTREMITIES: No clubbing, cyanosis, no edema. NEUROLOGIC: The patient is alert, but slightly confused, complaining of some pain in his back. Otherwise, the patient will continue to be monitored. 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 PLAN: Continue with rehabilitation, physical, occupational therapy, and make further evaluation on him as indicated. WILL GOMEZ MD DR: LAWANDA/kristel JOB#: [id number] / [id number]
--- NOTE | 2018-03-17 10:56 | HP ---
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 The patient seen by Cardiology, ejection fraction of 25%. The patient possibly passed up, near syncopal spell episode. The patient also experienced an accidental fall and as a result of that had problems with a mild concussion due to his presyncope, maybe he had a compression fracture. He was treated down at [place] and he is presently appeared for rehabilitation as the patient needs to be rehabilitated with his mechanical falls, possible compression fracture and the like. 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 He had a kyphoplasty done on 03/14/2018 and also a pacemaker placement on 03/15/2018 as well. ALLERGIES: TO PENICILLIN and IODINE. FAMILY HISTORY: Coronary artery disease. SOCIAL HISTORY: The patient recently just quit smoking, although he continues to drink. Lives with his daughter. MEDICATIONS: Reviewed in the MRAD and stable from his transfer included Lanoxin 125 mcg, Abilify 5, Cordarone 200, hydrocodone, trazodone 100, Pepcid 20, Eliquis 5, Flomax 0.4, metoprolol 25, albuterol 2.5. REVIEW OF SYSTEMS: As stated in the HPI. The patient is extremely limited as he is a poor historian. PHYSICAL EXAMINATION: GENERAL: The patient, on examination, is a pleasant white male, looking older than stated age. The patient otherwise is alert. He has some speech, he does have some decrease and he is alert x 2. VITAL SIGNS: Blood pressure 147/85, respiratory rate 46, pulse 80, afebrile. LUNGS: Otherwise, lungs are diminished, slight crackles in the bases. CARDIOVASCULAR: Irregularly irregular rhythm. ABDOMEN: Soft, nontender, no rebound or guarding. Positive bowel sounds, no hepatosplenomegaly. EXTREMITIES: No clubbing, cyanosis, no edema. NEUROLOGIC: The patient is alert, but slightly confused, complaining of some pain in his back. Otherwise, the patient will continue to be monitored. 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 PLAN: Continue with rehabilitation, physical, occupational therapy, and make further evaluation on him as indicated. He had a kyphoplasty done on 03/14/2018 and also a pacemaker placement on 03/15/2018 as well. WILL GOMEZ MD DR: LAWANDA/kristel JOB#: [id number] / [id number]
[2018-03-17 18:32] VITALS: BP 119/73
[2018-03-17] MEDS: TAMSULOSIN 0.4 MG CAP.ER.24H. PO SCH (19:34)
[2018-03-17] MEDS: traZODone 100 MG TABLET. PO SCH (19:34)
[2018-03-18 05:45] VITALS: BP 134/83
[2018-03-18] MEDS: HYDROcodone/APAP 5/325MG 1 TAB TABLET PO PRN ×2 (05:46→21:12)
[2018-03-18] MEDS: FAMOTIDINE 20 MG TABLET PO SCH ×2 (08:56→21:12)
[2018-03-18] MEDS: ARIPiprazole 5 MG TABLET PO SCH (08:56)
[2018-03-18] MEDS: METOPROLOL TART IMMED RELEASE 25 MG TABLET PO SCH ×2 (08:58→21:18)
[2018-03-18] MEDS: AMIODARONE HCL 200 MG TABLET PO SCH (08:58)
[2018-03-18] MEDS: APIXABAN 5 MG TABLET. PO SCH ×2 (08:59→21:12)
[2018-03-18] MEDS: DIGOXIN 125 MCG TABLET PO SCH (09:01)
[2018-03-18 17:57] VITALS: BP 112/72
[2018-03-18 21:00] VITALS: BP 135/84
[2018-03-18] MEDS: TAMSULOSIN 0.4 MG CAP.ER.24H. PO SCH (21:11)
[2018-03-18] MEDS: traZODone 100 MG TABLET. PO SCH (21:12)
[2018-03-19 05:47] VITALS: BP 119/72
[2018-03-19] MEDS: HYDROcodone/APAP 5/325MG 1 TAB TABLET PO PRN ×3 (07:46→18:26)
[2018-03-19] MEDS: FAMOTIDINE 20 MG TABLET PO SCH ×2 (09:23→20:28)
[2018-03-19] MEDS: DIGOXIN 125 MCG TABLET PO SCH (09:24)
[2018-03-19] MEDS: ARIPiprazole 5 MG TABLET PO SCH (09:24)
[2018-03-19] MEDS: AMIODARONE HCL 200 MG TABLET PO SCH (09:25)
[2018-03-19] MEDS: APIXABAN 5 MG TABLET. PO SCH ×2 (09:25→20:28)
[2018-03-19 09:27] VITALS: BP 167/65
[2018-03-19] MEDS: METOPROLOL TART IMMED RELEASE 25 MG TABLET PO SCH ×2 (11:00→20:28)
[2018-03-19 18:10] VITALS: BP 118/72
[2018-03-19] MEDS: traZODone 100 MG TABLET. PO SCH (20:28)
[2018-03-19] MEDS: TAMSULOSIN 0.4 MG CAP.ER.24H. PO SCH (20:28)
[2018-03-20] MEDS: HYDROcodone/APAP 5/325MG 1 TAB TABLET PO PRN ×3 (02:00→20:11)
[2018-03-20 06:33] VITALS: BP 116/77
[2018-03-20] MEDS: AMIODARONE HCL 200 MG TABLET PO SCH (08:31)
[2018-03-20] MEDS: FAMOTIDINE 20 MG TABLET PO SCH ×2 (08:32→20:11)
[2018-03-20] MEDS: ARIPiprazole 5 MG TABLET PO SCH (08:32)
[2018-03-20] MEDS: DIGOXIN 125 MCG TABLET PO SCH (08:32)
[2018-03-20] MEDS: APIXABAN 5 MG TABLET. PO SCH ×2 (08:32→20:11)
[2018-03-20 11:46] VITALS: BP 113/72
[2018-03-20] MEDS: METOPROLOL TART IMMED RELEASE 25 MG TABLET PO SCH ×2 (11:49→20:12)
[2018-03-20 18:35] VITALS: BP 109/66
[2018-03-20] MEDS: traZODone 100 MG TABLET. PO SCH (20:11)
[2018-03-20] MEDS: TAMSULOSIN 0.4 MG CAP.ER.24H. PO SCH (20:12)
[2018-03-21 05:44] VITALS: BP 112/69
[2018-03-21] MEDS: HYDROcodone/APAP 5/325MG 1 TAB TABLET PO PRN ×2 (05:52→20:04)
[2018-03-21] MEDS: METOPROLOL TART IMMED RELEASE 25 MG TABLET PO SCH ×2 (08:34→20:07)
[2018-03-21] MEDS: APIXABAN 5 MG TABLET. PO SCH ×2 (08:34→20:03)
[2018-03-21] MEDS: AMIODARONE HCL 200 MG TABLET PO SCH (08:34)
[2018-03-21] MEDS: FAMOTIDINE 20 MG TABLET PO SCH ×2 (08:34→20:02)
[2018-03-21] MEDS: ARIPiprazole 5 MG TABLET PO SCH (08:34)
[2018-03-21] MEDS: DIGOXIN 125 MCG TABLET PO SCH (08:35)
[2018-03-21 18:20] VITALS: BP 107/69
[2018-03-21] MEDS: traZODone 100 MG TABLET. PO SCH (20:03)
[2018-03-21] MEDS: TAMSULOSIN 0.4 MG CAP.ER.24H. PO SCH (20:03)
[2018-03-22 05:43] VITALS: BP 134/81
[2018-03-22] MEDS: AMIODARONE HCL 200 MG TABLET PO SCH (08:26)
[2018-03-22] MEDS: APIXABAN 5 MG TABLET. PO SCH ×2 (08:26→21:24)
[2018-03-22] MEDS: ARIPiprazole 5 MG TABLET PO SCH (08:26)
[2018-03-22] MEDS: FAMOTIDINE 20 MG TABLET PO SCH ×2 (08:27→21:23)
[2018-03-22] MEDS: METOPROLOL TART IMMED RELEASE 25 MG TABLET PO SCH ×2 (08:27→21:24)
[2018-03-22] MEDS: DIGOXIN 125 MCG TABLET PO SCH (08:27)
[2018-03-22] MEDS: HYDROcodone/APAP 5/325MG 1 TAB TABLET PO PRN ×2 (09:48→21:25)
[2018-03-22 18:10] VITALS: BP 159/80
[2018-03-22] MEDS: TAMSULOSIN 0.4 MG CAP.ER.24H. PO SCH (21:24)
[2018-03-22] MEDS: traZODone 100 MG TABLET. PO SCH (21:25)
[2018-03-23] MEDS: HYDROcodone/APAP 5/325MG 1 TAB TABLET PO PRN ×2 (04:00→16:23)
[2018-03-23 06:33] VITALS: BP 123/71
[2018-03-23] MEDS: ARIPiprazole 5 MG TABLET PO SCH (08:30)
[2018-03-23] MEDS: DIGOXIN 125 MCG TABLET PO SCH (08:31)
[2018-03-23] MEDS: AMIODARONE HCL 200 MG TABLET PO SCH (08:31)
[2018-03-23] MEDS: APIXABAN 5 MG TABLET. PO SCH ×2 (08:31→20:14)
[2018-03-23] MEDS: METOPROLOL TART IMMED RELEASE 25 MG TABLET PO SCH ×2 (08:32→20:15)
[2018-03-23] MEDS: FAMOTIDINE 20 MG TABLET PO SCH ×2 (08:32→20:14)
[2018-03-23 18:28] VITALS: BP 125/83
[2018-03-23] MEDS: traZODone 100 MG TABLET. PO SCH (20:14)
[2018-03-23] MEDS: TAMSULOSIN 0.4 MG CAP.ER.24H. PO SCH (20:14)
[2018-03-24] MEDS: HYDROcodone/APAP 5/325MG 1 TAB TABLET PO PRN ×2 (00:51→09:16)
[2018-03-24 05:04] VITALS: BP 118/71
[2018-03-24] MEDS: AMIODARONE HCL 200 MG TABLET PO SCH (09:15)
[2018-03-24] MEDS: ARIPiprazole 5 MG TABLET PO SCH (09:16)
[2018-03-24] MEDS: APIXABAN 5 MG TABLET. PO SCH ×2 (09:16→21:38)
[2018-03-24] MEDS: FAMOTIDINE 20 MG TABLET PO SCH ×2 (09:16→21:38)
[2018-03-24] MEDS: METOPROLOL TART IMMED RELEASE 25 MG TABLET PO SCH ×2 (09:16→21:42)
[2018-03-24] MEDS: DIGOXIN 125 MCG TABLET PO SCH (09:16)
[2018-03-24 18:49] VITALS: BP 125/78
[2018-03-24] MEDS: TAMSULOSIN 0.4 MG CAP.ER.24H. PO SCH (21:37)
[2018-03-24] MEDS: traZODone 100 MG TABLET. PO SCH (21:38)
[2018-03-25 06:00] VITALS: BP 147/85
[2018-03-25] MEDS: HYDROcodone/APAP 5/325MG 1 TAB TABLET PO PRN ×3 (06:25→21:57)
[2018-03-25] MEDS: ARIPiprazole 5 MG TABLET PO SCH (09:16)
[2018-03-25] MEDS: APIXABAN 5 MG TABLET. PO SCH ×2 (09:16→21:58)
[2018-03-25] MEDS: FAMOTIDINE 20 MG TABLET PO SCH ×2 (09:16→21:57)
[2018-03-25] MEDS: METOPROLOL TART IMMED RELEASE 25 MG TABLET PO SCH ×2 (09:25→21:57)
[2018-03-25] MEDS: AMIODARONE HCL 200 MG TABLET PO SCH (09:26)
[2018-03-25] MEDS: DIGOXIN 125 MCG TABLET PO SCH (09:26)
[2018-03-25 18:26] VITALS: BP 112/70
[2018-03-25] MEDS: traZODone 100 MG TABLET. PO SCH (21:58)
[2018-03-25] MEDS: TAMSULOSIN 0.4 MG CAP.ER.24H. PO SCH (21:58)
[2018-03-26 06:00] VITALS: BP 144/96
[2018-03-26] MEDS: DIGOXIN 125 MCG TABLET PO SCH (09:01)
[2018-03-26] MEDS: APIXABAN 5 MG TABLET. PO SCH ×2 (09:01→21:13)
[2018-03-26] MEDS: METOPROLOL TART IMMED RELEASE 25 MG TABLET PO SCH ×2 (09:01→21:14)
[2018-03-26] MEDS: FAMOTIDINE 20 MG TABLET PO SCH ×2 (09:01→21:14)
[2018-03-26] MEDS: ARIPiprazole 5 MG TABLET PO SCH (09:01)
[2018-03-26] MEDS: AMIODARONE HCL 200 MG TABLET PO SCH (09:02)
[2018-03-26] MEDS: HYDROcodone/APAP 5/325MG 1 TAB TABLET PO PRN ×2 (09:06→21:15)
[2018-03-26 18:42] VITALS: BP 143/79
[2018-03-26] MEDS: traZODone 100 MG TABLET. PO SCH (21:13)
[2018-03-26] MEDS: TAMSULOSIN 0.4 MG CAP.ER.24H. PO SCH (21:13)
[2018-03-27 06:29] VITALS: BP 152/84
[2018-03-27] MEDS: FAMOTIDINE 20 MG TABLET PO SCH ×2 (08:30→20:38)
[2018-03-27] MEDS: APIXABAN 5 MG TABLET. PO SCH ×2 (08:30→20:38)
[2018-03-27] MEDS: ARIPiprazole 5 MG TABLET PO SCH (08:30)
[2018-03-27] MEDS: METOPROLOL TART IMMED RELEASE 25 MG TABLET PO SCH ×2 (08:31→20:39)
[2018-03-27] MEDS: DIGOXIN 125 MCG TABLET PO SCH (08:31)
[2018-03-27] MEDS: AMIODARONE HCL 200 MG TABLET PO SCH (08:31)
[2018-03-27] MEDS: HYDROcodone/APAP 5/325MG 1 TAB TABLET PO PRN ×2 (14:14→20:38)
[2018-03-27 18:27] VITALS: BP 157/79
[2018-03-27] MEDS: traZODone 100 MG TABLET. PO SCH (20:38)
[2018-03-27] MEDS: TAMSULOSIN 0.4 MG CAP.ER.24H. PO SCH (20:39)
[2018-03-28 04:58] VITALS: BP 170/86
[2018-03-28] MEDS: HYDROcodone/APAP 5/325MG 1 TAB TABLET PO PRN ×3 (05:34→20:56)
[2018-03-28] MEDS: ARIPiprazole 5 MG TABLET PO SCH (07:31)
[2018-03-28] MEDS: APIXABAN 5 MG TABLET. PO SCH ×2 (07:31→20:57)
[2018-03-28] MEDS: FAMOTIDINE 20 MG TABLET PO SCH ×2 (07:32→20:57)
[2018-03-28] MEDS: AMIODARONE HCL 200 MG TABLET PO SCH (07:32)
[2018-03-28] MEDS: METOPROLOL TART IMMED RELEASE 25 MG TABLET PO SCH ×2 (07:32→20:56)
[2018-03-28] MEDS: DIGOXIN 125 MCG TABLET PO SCH (07:32)
--- NOTE | 2018-03-28 08:05 | PN ---
DATE: 03/27/2018 SUBJECTIVE: He is on a swing bed unit. The patient seems to be making fairly good progress. He was initially admitted with the ejection fraction of 25%. He had some syncopal spells. He was admitted down there. The problems came back up for rehab for his compression fractures, vertebral body. The patient says he is doing somewhat better and feeling a little bit stronger, but slow going. OBJECTIVE: VITAL SIGNS: Blood pressure 150/80, respiratory rate 16, pulse 63, no drop in his blood pressures, afebrile. GENERAL APPEARANCE: The patient is alert and oriented x 3, baseline for him anyway. LUNGS: Diminished, but basically clear, decreased throughout. CARDIOVASCULAR: Regular sinus rhythm with occasional dropped beat, 1/6 to 2/6 systolic ejection murmur. ABDOMEN: Soft, nontender. Continue on rehabilitation. IMPRESSION: Compression fracture of the vertebral back and persistent lower back pain, history of mechanical falls and concussion, loss of consciousness, multiple falls, possible tachybrady syndrome, cardiomyopathy, ejection fraction of 20%-30% on top of chronic congestive heart failure baseline. WILL GOMEZ MD DR: LAWANDA/kristel JOB#: [id number] / [id number]
[2018-03-28 18:22] VITALS: BP 121/73
[2018-03-28] MEDS: TAMSULOSIN 0.4 MG CAP.ER.24H. PO SCH (20:55)
[2018-03-28] MEDS: traZODone 100 MG TABLET. PO SCH (20:57)
[2018-03-29] MEDS: HYDROcodone/APAP 5/325MG 1 TAB TABLET PO PRN ×3 (00:04→07:07)
[2018-03-29 05:32] VITALS: BP 139/87
[2018-03-29] MEDS: FAMOTIDINE 20 MG TABLET PO SCH (07:07)
[2018-03-29] MEDS: DIGOXIN 125 MCG TABLET PO SCH (07:07)
[2018-03-29] MEDS: METOPROLOL TART IMMED RELEASE 25 MG TABLET PO SCH (07:08)
[2018-03-29] MEDS: AMIODARONE HCL 200 MG TABLET PO SCH (07:08)
[2018-03-29] MEDS: APIXABAN 5 MG TABLET. PO SCH (07:08)
[2018-03-29] MEDS: ARIPiprazole 5 MG TABLET PO SCH (07:08)
[2018-03-29] MEDS ORDERED: HYDR-2758 PO (09:48)
--- NOTE | 2018-03-29 13:31 | DS ---
DATE OF DISCHARGE: 03/29/2018 HOSPITAL COURSE: The patient is being discharged from the SNU unit. The patient has been brought up here from [place]. Apparently, he had pacemaker placement and needed a rehab or skilled care. He had had some syncopal spells, accidental falls. The patient had a compression fracture in his back. He was in pain. The patient made good progress while here in the skilled unit. There were no complications. He will be discharged home per his request. IMPRESSION: Therefore, a compression fracture of the vertebral back, multiple falls with concussion, loss of consciousness, total blindness, multiple falls, possible tachybrady syndrome, cardiomyopathy, ejection fraction of 20-30%, new pacemaker placement, acute on top of chronic congestive heart failure, stable there. He will be discharged a heart healthy diet and home health and we will make further evaluation on him as indicated. WILL GOMZE MD DR: LAWANDA/kristel JOB#: [id number] / [id number]
== END 2018-03-29 12:03 | disposition home health service (06) | DRG 89 ==
LOC: LND 14:37
PROVIDERS: ADMIT Family Medicine; ATTEND Family Medicine
DX: S06.0X9A Concussion with loss of consciousness of unspecified duration, initial encounter (principal); S32.009A Unspecified fracture of unspecified lumbar vertebra, initial encounter for closed fracture; I42.9 Cardiomyopathy, unspecified; E11.9 Type 2 diabetes mellitus without complications; E78.5 Hyperlipidemia, unspecified; H54.7 Unspecified visual loss; I10 Essential (primary) hypertension; I48.91 Unspecified atrial fibrillation; J44.9 Chronic obstructive pulmonary disease, unspecified; R29.6 Repeated falls; W18.39XA Other fall on same level, initial encounter; Y93.89 Activity, other specified; Y92.89 Other specified places as the place of occurrence of the external cause; Z79.899 Other long term (current) drug therapy; Y99.8 Other external cause status; Z82.49 Family history of ischemic heart disease and other diseases of the circulatory system; Z86.718 Personal history of other venous thrombosis and embolism; Z91.19 Patient's noncompliance with other medical treatment and regimen; Z95.0 Presence of cardiac pacemaker; I50.9 Heart failure, unspecified; I11.0 Hypertensive heart disease with heart failure
CPT/HCPCS: 82947; 92610; 97110; 97116; 97530; 97535

== ENCOUNTER 2018-04-04 18:18 | Emergency (ER) | payer MEDICARE, BC ==
[~2018-04-04] VITALS: Ht 172.7 cm; Wt 74.8 kg
[~2018-04-04 18:18] MED LIST changes: +HYDR-2758 PO
[2018-04-04] MEDS ORDERED: IV NORMAL SALINE 500ML 500 ML IV ONE (19:00)
--- NOTE | 2018-04-04 19:20 | PHYS DOC ---
Adult General Chief Complaint Chief Complaint FALL [facility] This is a very pleasant 82 years old gentleman with multiple medical problems presented to the emergency department with right shoulder and right hip pain after fall his been feeling weak all over able to ambulate in his own however unable to do much as he used to no chest pain or shortness breath no abdominal pain no diarrhea no urgency or frequency no hematuria Review of Systems Review of Systems Constitutional: Denies fever or chills [] Eyes: Denies change in visual acuity, redness, or eye pain [] HENT: Denies nasal congestion or sore throat [] Respiratory: Denies cough or shortness of breath [] Cardiovascular: No additional information not addressed in HPI [] GI: Denies abdominal pain, nausea, vomiting, bloody stools or diarrhea [] : Denies dysuria or hematuria [] Musculoskeletal right shoulder tenderness and right hip tender tenderness[] Integument: Denies rash or skin lesions [] Neurologic: Denies headache, focal weakness or sensory changes [] Endocrine: Denies polyuria or polydipsia [] All other systems were reviewed and found to be within normal limits, except as documented in this note. Current Medications Current Medications Current Medications Medications (Trade) Dose Ordered Sig/Catherine Start Time Stop Time Status Last Admin Dose Admin Sodium Chloride 500 ml @ 0 mls/hr 1X ONCE 04/04/18 19:00 04/04/18 19:01 DC 04/04/18 19:24 999 MLS/HR Allergies Allergies Allergies Coded Allergies Type Severity Reaction Last Updated Verified Penicillins Allergy Intermediate 09/04/14 Yes iodine Allergy Intermediate 09/04/14 Yes shellfish derived Allergy Intermediate 09/04/14 Yes Physical Exam Physical Exam Constitutional: Well developed, well nourished, no acute distress, non-toxic appearance. [] HENT: Normocephalic, atraumatic, bilateral external ears normal, oropharynx moist, no oral exudates, nose normal. [] Eyes: PERRLA, EOMI, conjunctiva normal, no discharge. [] Neck: Normal range of motion, no tenderness, supple, no stridor. [] Cardiovascular:Heart rate regular rhythm, no murmur [] Lungs & Thorax: Bilateral breath sounds clear to auscultation [] Abdomen: Bowel sounds normal, soft, no tenderness, no masses, no pulsatile masses. [] Skin: Warm, dry, no erythema, no rash. [] Back: No tenderness, no CVA tenderness. [] Extremities: Hip and right shoulder tenderness, no cyanosis, no clubbing, ROM intact, no edema. [] Neurologic: Alert and oriented X 3, normal motor function, normal sensory function, no focal deficits noted. [] Psychologic: Affect normal, judgement normal, mood normal. [] Current Patient Data Vital Signs Vital Signs Date Time Temp Pulse Resp B/P (MAP) Pulse Ox O2 Delivery O2 Flow Rate FiO2 04/04/18 18:18 98.5 84 18 97 Room Air Lab Results Laboratory Tests Test 04/04/18 19:21 White Blood Count 7.6 x10^3/uL (4.0-11.0) Red Blood Count 4.80 x10^6/uL (4.30-5.70) Hemoglobin 16.0 g/dL (13.0-17.5) Hematocrit 48.0 % (39.0-53.0) Mean Corpuscular Volume 100 fL (79-100) Mean Corpuscular Hemoglobin 33 pg (25-35) Mean Corpuscular Hemoglobin Concent 33 g/dL (31-37) Red Cell Distribution Width 13.5 % (11.5-14.5) Platelet Count 277 x10^3/uL (140-400) Neutrophils (%) (Auto) 69 % (31-73) Lymphocytes (%) (Auto) 16 % (24-48) L Monocytes (%) (Auto) 13 % (0-9) H Eosinophils (%) (Auto) 2 % (0-3) Basophils (%) (Auto) 1 % (0-3) Neutrophils # (Auto) 5.3 x10^3uL (1.8-7.7) Lymphocytes # (Auto) 1.2 x10^3/uL (1.0-4.8) Monocytes # (Auto) 1.0 x10^3/uL (0.0-1.1) Eosinophils # (Auto) 0.1 x10^3/uL (0.0-0.7) Basophils # (Auto) 0.0 x10^3/uL (0.0-0.2) Sodium Level 138 mmol/L (136-145) Potassium Level 4.1 mmol/L (3.5-5.1) Chloride Level 102 mmol/L (98-107) Carbon Dioxide Level 29 mmol/L (21-32) Anion Gap 7 (6-14) Blood Urea Nitrogen 15 mg/dL (8-26) Creatinine 1.9 mg/dL (0.7-1.3) H Estimated GFR (Cockcroft-Gault) 34.1 BUN/Creatinine Ratio 8 (6-20) Glucose Level 118 mg/dL (70-99) H Calcium Level 8.8 mg/dL (8.5-10.1) Total Bilirubin 0.7 mg/dL (0.2-1.0) Aspartate Amino Transferase (AST) 21 U/L (15-37) Alanine Aminotransferase (ALT) 23 U/L (16-63) Alkaline Phosphatase 153 U/L (46-116) H Total Protein 6.9 g/dL (6.4-8.2) Albumin 3.0 g/dL (3.4-5.0) L Albumin/Globulin Ratio 0.8 (1.0-1.7) L EKG EKG [] Radiology/Procedures Radiology/Procedures [] Course & Med Decision Making Course & Med Decision Making Pertinent Labs and Imaging studies reviewed. (See chart for details) [] Final Impression Final Impression [] Problems: (1) Contusion of shoulder, right Qualifiers: Qualified Codes: S40.011A - Contusion of right shoulder, initial encounter (2) Contusion of right hip Qualifiers: Qualified Codes: S70.01XA - Contusion of right hip, initial encounter Dragon Disclaimer Dragon Disclaimer This electronic medical record was generated, in whole or in part, using a voice recognition dictation system. GERMANIA PINEDA MD Apr 04, 2018 19:20
[2018-04-04 19:47] LABS: BASO % 1 % (0-3); EOS # 0.1 x10^3/uL (0.0-0.7); EOS % 2 % (0-3); LYMPH # 1.2 x10^3/uL (1.0-4.8); LYMPH % 16 % (24-48); MEAN CORPUSCULAR HEMOGLOBIN 33 pg (25-35); MEAN CORPUSCULAR HGB CONC 33 g/dL (31-37); MEAN CORPUSCULAR VOLUME 100 fL (79-100); MONO % 13 % (0-9); NEUT # 5.3 x10^3uL (1.8-7.7); NEUT % 69 % (31-73); PLATELET COUNT 277 x10^3/uL (140-400); RED CELL DISTRIBUTION WIDTH 13.5 % (11.5-14.5); WHITE BLOOD COUNT 7.6 x10^3/uL (4.0-11.0)
[2018-04-04 20:01] LABS: ALBUMIN/GLOBULIN RATIO 0.8 (1.0-1.7); CALCIUM 8.8 mg/dL (8.5-10.1); CREATININE 1.9 mg/dL (0.7-1.3); GFR 34.1; POTASSIUM 4.1 mmol/L (3.5-5.1); TOTAL BILIRUBIN 0.7 mg/dL (0.2-1.0); TOTAL PROTEIN 6.9 g/dL (6.4-8.2)
--- NOTE | 2018-04-04 20:03 | RAD ---
Indication: Injury from fall. Hip and pelvic pain TECHNIQUE: AP pelvis and 2 views of the right hip joint COMPARISON: None FINDINGS/ impression: The hip joint is symmetric bilaterally without significant arthritic changes. No acute fracture or dislocation. Electronically signed by: Chuck Batista DO (04/04/2018 7:59 PM) [facility]
--- NOTE | 2018-04-04 20:04 | RAD ---
Indication:Injury from fall, right shoulder, hip and pelvis pain TECHNIQUE: 3 views of the right shoulder COMPARISON:None FINDINGS/ impression:No acute fracture or dislocation. Mild glenohumeral joint osteoarthritis. Visualized right lung is clear. Electronically signed by: Chuck Batista DO (04/04/2018 8:00 PM) [facility]
[2018-04-04 20:55] VITALS: BP 148/81
--- NOTE | 2018-04-05 00:35 | EKG ---
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
== END 2018-04-04 21:06 | disposition home or self-care (01) ==
LOC: ER 18:18
DX: S40.011A Contusion of right shoulder, initial encounter (principal); S70.01XA Contusion of right hip, initial encounter; Z88.0 Allergy status to penicillin; Z91.041 Radiographic dye allergy status; Z91.013 Allergy to seafood; W18.30XA Fall on same level, unspecified, initial encounter; Y93.89 Activity, other specified; Y92.89 Other specified places as the place of occurrence of the external cause; Y99.8 Other external cause status
CPT/HCPCS: 36415; 73030; 73502; 80053; 85025; 93005; 99284; J7040